=== PATIENT | female | born 1985 | race African-American/Black ===

== ENCOUNTER 2016-09-14 19:49 | Inpatient (IN) | payer MEDICAID ==
[~2016-09-14] VITALS: Ht 157.5 cm; Wt 58.2 kg
[~2016-09-14 19:49] MED LIST: ALPR0.254 PO; ASPI-621 PO; AZIT500T4 PO; CEFD300C2 PO; DOCU240C31 PO; FERR325T20 PO; HYDR-3138 PO; IBUP-1222 PO; IBUP200T5 PO; LISI5TAB7 PO; MAGN400T26 PO; METH125V IV; METO25TA35 PO; MIRT15TA4 PO; OXYC-223 PO; OXYC-302 PO; OXYC10TA32 PO; PANT40TA5 PO; PRED20TA PO; PROM25AM6 IM; maalox/diphenh/lido/sucralfate PO
[2016-09-14] MEDS ORDERED: ONDANSETRON 2MG/ML, 2ML ONE (20:25)
[2016-09-14] MEDS ORDERED: MORPHINE SULFATE 4 MG/ML, 1ML ONE (20:25)
[2016-09-14] MEDS ORDERED: MORPHINE SULFATE 4 MG/ML, 1ML IVPush PRN (20:30)
[2016-09-14] MEDS ORDERED: SODIUM CHLORIDE 0.9% 1,000ML IVBOLUS ONE (20:30)
[2016-09-14] MEDS ORDERED: SODIUM CHLORIDE FLUSH 10ML SYR IVF ONE (20:30)
[2016-09-14] MEDS ORDERED: ONDANSETRON 2MG/ML, 2ML IVPush ONE (20:30)
[2016-09-14 21:05] LABS: IS PT STATUS REG ER OR PRE ER? YES
[2016-09-14 21:53] LABS: DAU SCREEN DISCLAIMER
[2016-09-14 22:27] LABS: ICTOTEST NEGATIVE
[2016-09-14] MEDS ORDERED: METOPROLOL 1 MG/ML, 5ML IVPush ONE (23:00)
[2016-09-14] MEDS ORDERED: METOPROLOL 1 MG/ML, 5ML ONE (23:02)
[2016-09-14 23:16] LABS: IS PT STATUS REG ER OR PRE ER? YES
[2016-09-15] VITALS (16 sets, daily range): BP systolic 82–109; BP diastolic 51–76
[2016-09-15] MEDS ORDERED: SODIUM CHLORIDE FLUSH 10ML SYR IVF PRN
[2016-09-15] MEDS: ONDANSETRON 2MG/ML, 2ML IVP PRN (01:36)
[2016-09-15] MEDS: SODIUM CHLORIDE 0.9% 1,000 ML IV SCH ×2 (02:06→13:45)
[2016-09-15] MEDS: OXYcodone IR 5MG TABLET PO PRN ×2 (02:08→10:33)
[2016-09-15] MEDS: CEFTRIAXONE PMX 1GM/50ML 50 ML IV SCH (02:21)
[2016-09-15 03:18] LABS: ASPARTATE AMINO TRANSFERASE 51 U/L (15-37); BLOOD UREA NITROGEN 16 mg/dL (7-18)
[2016-09-15 03:22] LABS: HEMOGLOBIN 6.2 g/dL (11.7-16.4)
[2016-09-15 03:23] LABS: DIFF TOTAL CELLS COUNTED 100 CELL DIFF
[2016-09-15 03:24] LABS: IS PT STATUS REG ER OR PRE ER? NO
[2016-09-15 03:25] LABS: ANISOCYTOSIS 1+
[2016-09-15 03:26] LABS: POIKILOCYTOSIS 1+; POLYCHROMASIA 1+
[2016-09-15 03:27] LABS: VERIFY COUNTS? YES
[2016-09-15] MEDS ORDERED: METOPROLOL TARTRATE 25 MG TABLET PO SCH (06:00)
[2016-09-15] MEDS ORDERED: ASPIRIN 81 MG TABLET EC PO SCH (06:00)
[2016-09-15] MEDS ORDERED: POTASSIUM CHLORIDE 20 MEQ TAB.ER.PRT PO SCH (08:00)
[2016-09-15] MEDS: MORPHINE SULFATE 4 MG/ML, 1ML IVPush PRN ×3 (08:19→15:13)
[2016-09-15] MEDS ORDERED: LISINOPRIL 5 MG TABLET PO SCH (09:00)
[2016-09-15 09:01] LABS: IS PT STATUS REG ER OR PRE ER? NO
[2016-09-15] MEDS: PROMETHAZINE 25 MG/ML, 1ML IM PRN (10:33)
[2016-09-15] MEDS: PANTOPROZOLE 40MG TABLET PO SCH (14:45)
[2016-09-15] MEDS: MAGNESIUM OXIDE 400 MG TABLET PO SCH (14:47)
[2016-09-15] MEDS: ACETAMINOPHEN 325 MG TABLET PO PRN (15:14)
[2016-09-15 15:50] LABS: HEMOGLOBIN 9.4 g/dL (11.7-16.4)
[2016-09-15] MEDS ORDERED: LORazepam 2 MG/ML, 1ML IVPush ONE (16:30)
[2016-09-15] MEDS ORDERED: OMNIPAQUE 350 MG/ML, 100ML BOTTLE ONE (19:11)
[2016-09-15 21:09] LABS: HEMOGLOBIN 9.5 g/dL (11.7-16.4)
[2016-09-15 21:23] LABS: DIFF TOTAL CELLS COUNTED 100 CELL DIFF
[2016-09-15 21:25] LABS: ANISOCYTOSIS 1+; POLYCHROMASIA 1+
[2016-09-15 21:29] LABS: VERIFY COUNTS? YES
[2016-09-15] MEDS: MIRTAZAPINE 15 MG TABLET PO SCH (21:59)
[2016-09-16] VITALS (18 sets, daily range): BP systolic 106–148; BP diastolic 66–90
[2016-09-16] MEDS ORDERED: VANCOMYCIN PER PHARMACY MC PRN (02:00)
[2016-09-16] MEDS: CEFTRIAXONE PMX 1GM/50ML 50 ML IV SCH (02:24)
[2016-09-16] MEDS: SODIUM CHLORIDE 0.9% 1,000 ML IV SCH ×2 (02:24→15:30)
[2016-09-16] MEDS ORDERED: PHARMACOKINETIC CONSULTATION MC ONE (02:30)
[2016-09-16] MEDS ORDERED: PHARMACOKINETIC MONITORING MC PRN (02:30)
[2016-09-16] MEDS: VANCOMYCIN PMX 1GM/200ML 200 ML IV SCH ×2 (03:11→17:41)
[2016-09-16] MEDS: MORPHINE SULFATE 4 MG/ML, 1ML IVPush PRN ×4 (04:17→20:56)
[2016-09-16] MEDS: PROMETHAZINE 25 MG/ML, 1ML IM PRN ×3 (05:56→20:56)
[2016-09-16 06:14] LABS: ASPARTATE AMINO TRANSFERASE 50 U/L (15-37); BLOOD UREA NITROGEN 20 mg/dL (7-18)
[2016-09-16] MEDS: OXYcodone IR 5MG TABLET PO PRN ×2 (06:35→15:30)
[2016-09-16 07:50] LABS: HEMOGLOBIN 8.4 g/dL (11.7-16.4)
[2016-09-16 08:00] LABS: DIFF TOTAL CELLS COUNTED 100 CELL DIFF
[2016-09-16 08:03] LABS: ANISOCYTOSIS 1+; POLYCHROMASIA 1+; VERIFY COUNTS? YES
[2016-09-16] MEDS: MAGNESIUM OXIDE 400 MG TABLET PO SCH (10:32)
[2016-09-16] MEDS: PANTOPROZOLE 40MG TABLET PO SCH (10:32)
[2016-09-16] MEDS ORDERED: DIPHENHYDRAMINE 50 MG/ML, 1ML IVPush ONE (13:00)
[2016-09-16] MEDS: PIPERACILLIN/TAZO/PMX 3.375GM 50 ML IV SCH ×2 (14:25→22:27)
[2016-09-16] MEDS: maalox/diphenh/lido/sucralfate 5 ML PO PRN (14:25)
[2016-09-16] MEDS ORDERED: MAGNESIUM SULFATE PMX 2GM/50ML 50 ML IV ONE (14:30)
[2016-09-16] MEDS: MIRTAZAPINE 15 MG TABLET PO SCH (20:56)
[2016-09-17] VITALS (9 sets, daily range): BP systolic 128–163; BP diastolic 80–102
[2016-09-17] MEDS: OXYcodone IR 5MG TABLET PO PRN ×3 (00:19→22:48)
[2016-09-17] MEDS: maalox/diphenh/lido/sucralfate 5 ML PO PRN ×3 (01:10→11:26)
[2016-09-17] MEDS: MORPHINE SULFATE 4 MG/ML, 1ML IVPush PRN ×4 (01:39→20:14)
[2016-09-17] MEDS: PROMETHAZINE 25 MG/ML, 1ML IM PRN ×3 (03:15→20:10)
[2016-09-17] MEDS: PIPERACILLIN/TAZO/PMX 3.375GM 50 ML IV SCH ×3 (05:41→22:48)
[2016-09-17] MEDS: VANCOMYCIN PMX 1GM/200ML 200 ML IV SCH ×2 (06:32→19:59)
[2016-09-17 07:26] LABS: HEMOGLOBIN 11.6 g/dL (11.7-16.4)
[2016-09-17] MEDS: PANTOPROZOLE 40MG TABLET PO SCH (08:56)
[2016-09-17] MEDS: MAGNESIUM OXIDE 400 MG TABLET PO SCH (08:56)
[2016-09-17] MEDS: SODIUM CHLORIDE 0.9% 1,000 ML IV SCH ×2 (08:56→23:04)
[2016-09-17] MEDS: LORazepam 2 MG/ML, 1ML IVPush PRN ×2 (15:46→22:51)
[2016-09-17] MEDS: MIRTAZAPINE 15 MG TABLET PO SCH (20:18)
[2016-09-17] MEDS: ACETAMINOPHEN 325 MG TABLET PO PRN (20:35)
[2016-09-18] VITALS (7 sets, daily range): BP systolic 104–153; BP diastolic 65–99
[2016-09-18] MEDS: MORPHINE SULFATE 4 MG/ML, 1ML IVPush PRN ×2 (01:29→04:45)
[2016-09-18] MEDS: OXYcodone IR 5MG TABLET PO PRN ×5 (06:13→23:22)
[2016-09-18] MEDS: PIPERACILLIN/TAZO/PMX 3.375GM 50 ML IV SCH ×2 (06:14→14:36)
[2016-09-18 07:33] LABS: HEMOGLOBIN 11.2 g/dL (11.7-16.4)
[2016-09-18] MEDS: PANTOPROZOLE 40MG TABLET PO SCH (08:54)
[2016-09-18] MEDS: LORazepam 2 MG/ML, 1ML IVPush PRN ×3 (08:54→23:22)
[2016-09-18] MEDS: VANCOMYCIN PMX 1GM/200ML 200 ML IV SCH (08:54)
[2016-09-18] MEDS: MAGNESIUM OXIDE 400 MG TABLET PO SCH (08:54)
[2016-09-18] MEDS: PROMETHAZINE 25 MG/ML, 1ML IM PRN ×2 (08:59→17:10)
[2016-09-18] MEDS: SODIUM CHLORIDE 0.9% 1,000 ML IV SCH (09:04)
[2016-09-18] MEDS ORDERED: OXYcodone IR 5MG TABLET PO PRN (13:00)
[2016-09-18] MEDS: MIRTAZAPINE 15 MG TABLET PO SCH (21:09)
[2016-09-18] MEDS: SODIUM CHLORIDE 0.9% IV SCH (21:10)
[2016-09-18] MEDS: DAPTOMYCIN IV SCH (21:10)
[2016-09-19] VITALS (9 sets, daily range): BP systolic 125–148; BP diastolic 72–91
[2016-09-19] MEDS: OXYcodone IR 5MG TABLET PO PRN ×3 (03:26→14:10)
[2016-09-19] MEDS: SODIUM CHLORIDE 0.9% 1,000 ML IV SCH ×2 (03:29→14:10)
[2016-09-19] MEDS: PROMETHAZINE 25 MG/ML, 1ML IM PRN ×3 (04:08→17:44)
[2016-09-19 04:48] LABS: HEMOGLOBIN 9.8 g/dL (11.7-16.4)
[2016-09-19] MEDS: LORazepam 2 MG/ML, 1ML IVPush PRN ×3 (05:38→20:44)
[2016-09-19 06:22] LABS: HIV 1&2 ANTIBODY SCREEN Nonreactive (Nonreactive); HIV-1 p24 ANTIGEN Nonreactive (Nonreactive)
[2016-09-19] MEDS: PANTOPROZOLE 40MG TABLET PO SCH (08:31)
[2016-09-19] MEDS: MAGNESIUM OXIDE 400 MG TABLET PO SCH (08:31)
[2016-09-19] MEDS ORDERED: GANCICLOVIR 500 MG IV SCH (13:00)
[2016-09-19] MEDS ORDERED: GANCICLOVIR IVPB SCH (13:30)
[2016-09-19] MEDS ORDERED: SODIUM CHLORIDE 0.9% IVPB SCH (13:30)
[2016-09-19] MEDS: DAPTOMYCIN IV SCH (20:44)
[2016-09-19] MEDS: SODIUM CHLORIDE 0.9% IV SCH (20:44)
[2016-09-19] MEDS: ACETAMINOPHEN 325 MG TABLET PO PRN (20:44)
[2016-09-19] MEDS: MIRTAZAPINE 15 MG TABLET PO SCH (21:11)
[2016-09-20] VITALS (9 sets, daily range): BP systolic 111–169; BP diastolic 68–99
[2016-09-20] MEDS: OXYcodone IR 5MG TABLET PO PRN ×4 (01:19→18:54)
[2016-09-20] MEDS: SODIUM CHLORIDE 0.9% 1,000 ML IV SCH (02:25)
[2016-09-20] MEDS: GANCICLOVIR IVPB SCH ×2 (03:38→19:53)
[2016-09-20] MEDS: SODIUM CHLORIDE 0.9% IVPB SCH ×2 (03:38→19:53)
[2016-09-20] MEDS: LORazepam 2 MG/ML, 1ML IVPush PRN ×3 (04:44→18:10)
[2016-09-20 05:36] LABS: HEMOGLOBIN 9.1 g/dL (11.7-16.4)
[2016-09-20 05:42] LABS: BLOOD UREA NITROGEN 14 mg/dL (7-18)
[2016-09-20] MEDS: ACETAMINOPHEN 325 MG TABLET PO PRN (06:23)
[2016-09-20] MEDS: PROMETHAZINE 25 MG/ML, 1ML IM PRN ×3 (06:24→21:54)
[2016-09-20] MEDS: PANTOPROZOLE 40MG TABLET PO SCH (09:05)
[2016-09-20] MEDS: MAGNESIUM OXIDE 400 MG TABLET PO SCH (09:05)
[2016-09-20] MEDS ORDERED: MAGNESIUM SULFATE PMX 2GM/50ML 50 ML IV ONE (09:30)
[2016-09-20] MEDS ORDERED: POTASSIUM CHLORIDE 20 MEQ TAB.ER.PRT PO ONE ×2 (09:30→11:00)
[2016-09-20 13:06] LABS: FUNGITELL RESULT 33 pg/mL (.)
[2016-09-20 19:30] LABS: ANA SCREEN POSITIVE (Negative); ANA TITER MIXED
[2016-09-20] MEDS: MIRTAZAPINE 15 MG TABLET PO SCH (19:54)
[2016-09-20 21:05] LABS: ADENOVIRUS PCR Negative (Negative); INFLUENZA A PCR Negative (Negative); INFLUENZA B PCR Negative (Negative); METAPNEUMOVIRUS PCR Negative (Negative); PARAINFLUENZA 1 PCR Negative (Negative); PARAINFLUENZA 2 PCR Negative (Negative); PARAINFLUENZA 3 PCR Negative (Negative); RESP SYNCYTIAL VIRUS A PCR Negative (Negative); RESP SYNCYTIAL VIRUS B PCR Negative (Negative); RHINOVIRUS PCR Negative (Negative)
[2016-09-20] MEDS: SODIUM CHLORIDE 0.9% IV SCH (22:41)
[2016-09-20] MEDS: DAPTOMYCIN IV SCH (22:41)
[2016-09-21] VITALS (9 sets, daily range): BP systolic 127–159; BP diastolic 77–99
[2016-09-21] MEDS: OXYcodone IR 5MG TABLET PO PRN ×4 (03:16→19:24)
[2016-09-21] MEDS: ACETAMINOPHEN 325 MG TABLET PO PRN (03:16)
[2016-09-21] MEDS: SODIUM CHLORIDE 0.9% 1,000 ML IV SCH ×2 (03:18→21:55)
[2016-09-21] MEDS: PROMETHAZINE 25 MG/ML, 1ML IM PRN (04:00)
[2016-09-21 05:45] LABS: HEMOGLOBIN 7.9 g/dL (11.7-16.4)
[2016-09-21 05:55] LABS: BLOOD UREA NITROGEN 11 mg/dL (7-18)
[2016-09-21] MEDS: MAGNESIUM OXIDE 400 MG TABLET PO SCH (08:27)
[2016-09-21] MEDS: PANTOPROZOLE 40MG TABLET PO SCH (08:27)
[2016-09-21] MEDS ORDERED: POTASSIUM CHLORIDE 20 MEQ TAB.ER.PRT PO ONE (10:30)
[2016-09-21] MEDS ORDERED: FUROSEMIDE 20 MG/2 ML IVPush ONE (10:30)
[2016-09-21] MEDS ORDERED: DIPHENHYDRAMINE 50 MG/ML, 1ML IVPush ONE (10:30)
[2016-09-21] MEDS ORDERED: PROMETHAZINE 12.5 MG SUPP PR PRN (10:30)
[2016-09-21] MEDS: GANCICLOVIR IVPB SCH (10:54)
[2016-09-21] MEDS: SODIUM CHLORIDE 0.9% IVPB SCH (10:54)
[2016-09-21 12:06] LABS: ANA DIRECT Positive (Negative); COMPLEMENT C3 33 mg/dL (82-167); COMPLEMENT C4 6 mg/dL (14-44); INTERMYOFIBRILLAR AB Negative (Neg:<1:20); PARIETAL CELL AB 18.4 Units (0.0-20.0); SARCOLEMMA AB Negative (Neg:<1:20); SJOGREN'S SS-A AB 4.6 AI (0.0-0.9); STRIATION AB Negative (Neg:<1:40); THYROID PEROXIDASE (TPO) AB 32 IU/mL (0-34)
[2016-09-21] MEDS: LORazepam 2 MG/ML, 1ML IVPush PRN ×2 (13:10→20:22)
[2016-09-21] MEDS ORDERED: FUROSEMIDE 20 MG/2 ML ONE (14:50)
[2016-09-21] MEDS ORDERED: POTASSIUM CHLORIDE 20 MEQ TAB.ER.PRT ONE (14:52)
[2016-09-21] MEDS: ONDANSETRON 2MG/ML, 2ML IVP PRN ×2 (20:22→22:49)
[2016-09-21] MEDS: MIRTAZAPINE 15 MG TABLET PO SCH (21:55)
[2016-09-21] MEDS: SODIUM CHLORIDE 0.9% IV SCH (22:48)
[2016-09-21] MEDS: DAPTOMYCIN IV SCH (22:48)
[2016-09-21] MEDS: MORPHINE SULFATE 4 MG/ML, 1ML IVPush PRN (22:49)
[2016-09-22] VITALS (7 sets, daily range): BP systolic 122–159; BP diastolic 76–90
[2016-09-22] MEDS: GANCICLOVIR IVPB SCH ×3 (01:14→23:30)
[2016-09-22] MEDS: SODIUM CHLORIDE 0.9% IVPB SCH ×3 (01:14→23:30)
[2016-09-22 06:06] LABS: HEMOGLOBIN 10.6 g/dL (11.7-16.4)
[2016-09-22 06:50] LABS: DIFF TOTAL CELLS COUNTED 100 CELL DIFF
[2016-09-22 07:34] LABS: VERIFY COUNTS? YES
[2016-09-22 07:35] LABS: ANISOCYTOSIS 1+
[2016-09-22] MEDS: SODIUM CHLORIDE 0.9% 1,000 ML IV SCH ×2 (09:53→23:30)
[2016-09-22] MEDS: MORPHINE SULFATE 4 MG/ML, 1ML IVPush PRN ×2 (09:53→16:39)
[2016-09-22] MEDS: PANTOPROZOLE 40MG TABLET PO SCH (09:53)
[2016-09-22] MEDS: MAGNESIUM OXIDE 400 MG TABLET PO SCH (09:53)
[2016-09-22 11:06] LABS: ABSOLUTE CD 4 HELPER 579 /uL (359-1519); HEMATOCRIT 26.9 % (34.0-46.6); IMMATURE GRANULOCYTES 0 % (.); MCH 28.7 pg (26.6-33.0); MCHC 33.5 g/dL (31.5-35.7); MCV 86 fL (79-97); MONOCYTES 5 % (.); NEUTROPHILS 72 % (.); PLATELETS 33 x10E3/uL (150-379); RBC 3.14 x10E6/uL (3.77-5.28); RDW 16.5 % (12.3-15.4); WBC 6.4 x10E3/uL (3.4-10.8)
[2016-09-22] MEDS: ACETAMINOPHEN 325 MG TABLET PO PRN (11:31)
[2016-09-22] MEDS: OXYcodone IR 5MG TABLET PO PRN ×2 (11:36→20:00)
[2016-09-22] MEDS: LORazepam 2 MG/ML, 1ML IVPush PRN (17:30)
[2016-09-22] MEDS: ONDANSETRON ODT 4 MG PO PRN (20:00)
[2016-09-22] MEDS: MIRTAZAPINE 15 MG TABLET PO SCH (20:00)
[2016-09-22] MEDS: CEFTAROLINE 600 MG in SODIUM CHLORIDE 0.9% 100 ML IV SCH (21:47)
[2016-09-23 02:05] VITALS: BP 162/95
[2016-09-23] MEDS: MORPHINE SULFATE 4 MG/ML, 1ML IVPush PRN ×3 (02:22→13:30)
[2016-09-23] MEDS: CEFTAROLINE 600 MG in SODIUM CHLORIDE 0.9% 100 ML IV SCH ×3 (04:02→20:14)
[2016-09-23] MEDS: ONDANSETRON ODT 4 MG PO PRN ×2 (04:11→08:16)
[2016-09-23 05:51] LABS: HEMOGLOBIN 10.8 g/dL (11.7-16.4)
[2016-09-23] MEDS: OXYcodone IR 5MG TABLET PO PRN ×3 (06:16→20:15)
[2016-09-23 06:34] VITALS: BP 152/91
[2016-09-23] MEDS: MAGNESIUM OXIDE 400 MG TABLET PO SCH (08:16)
[2016-09-23] MEDS: PANTOPROZOLE 40MG TABLET PO SCH (08:16)
[2016-09-23] MEDS: SODIUM CHLORIDE 0.9% IVPB SCH ×2 (12:04→23:39)
[2016-09-23] MEDS: GANCICLOVIR IVPB SCH ×2 (12:04→23:39)
[2016-09-23] MEDS: SODIUM CHLORIDE 0.9% 1,000 ML IV SCH (12:09)
[2016-09-23] MEDS: LORazepam 2 MG/ML, 1ML IVPush PRN ×2 (12:14→22:30)
[2016-09-23 12:54] VITALS: BP 156/94
[2016-09-23] MEDS: ONDANSETRON 2MG/ML, 2ML IVP PRN ×2 (16:33→20:15)
[2016-09-23] MEDS: MIRTAZAPINE 15 MG TABLET PO SCH (20:14)
[2016-09-23 20:25] VITALS: BP 152/88
[2016-09-24] MEDS: SODIUM CHLORIDE 0.9% 1,000 ML IV SCH ×2 (01:08→15:00)
[2016-09-24 02:00] VITALS: BP 150/91
[2016-09-24] MEDS: CEFTAROLINE 600 MG in SODIUM CHLORIDE 0.9% 100 ML IV SCH ×3 (03:56→22:11)
[2016-09-24] MEDS: OXYcodone IR 5MG TABLET PO PRN ×4 (03:58→22:11)
[2016-09-24] MEDS: LORazepam 2 MG/ML, 1ML IVPush PRN ×3 (04:35→22:11)
[2016-09-24 05:14] LABS: HEMOGLOBIN 10.2 g/dL (11.7-16.4)
[2016-09-24 05:39] LABS: ASPARTATE AMINO TRANSFERASE 25 U/L (15-37); BLOOD UREA NITROGEN 10 mg/dL (7-18)
[2016-09-24] MEDS ORDERED: DOCUSATE 50 MG/5 ML ORAL SOL OT PRN (07:30)
[2016-09-24 07:58] VITALS: BP 156/94
[2016-09-24] MEDS: ONDANSETRON 2MG/ML, 2ML IVP PRN ×2 (08:13→15:37)
[2016-09-24] MEDS ORDERED: POTASSIUM CHLORIDE 20 MEQ TAB.ER.PRT PO ONE (10:00)
[2016-09-24] MEDS ORDERED: MAGNESIUM SULFATE PMX 2GM/50ML 50 ML IV ONE (10:00)
[2016-09-24] MEDS: MAGNESIUM OXIDE 400 MG TABLET PO SCH (11:02)
[2016-09-24] MEDS: CLINDAMYCIN PMX 900MG/50ML 50 ML IV SCH ×2 (11:02→20:18)
[2016-09-24] MEDS: PANTOPROZOLE 40MG TABLET PO SCH (11:03)
[2016-09-24] MEDS: SODIUM CHLORIDE 0.9% IVPB SCH (14:46)
[2016-09-24] MEDS: GANCICLOVIR IVPB SCH (14:46)
[2016-09-24 15:19] VITALS: BP 161/96
[2016-09-24 17:42] VITALS: BP 151/86
[2016-09-24 17:57] VITALS: BP 147/86
[2016-09-24 20:00] VITALS: BP 148/88
[2016-09-24] MEDS: MIRTAZAPINE 15 MG TABLET PO SCH (22:11)
[2016-09-25 02:30] VITALS: BP 137/90
[2016-09-25] MEDS: GANCICLOVIR IVPB SCH (03:31)
[2016-09-25] MEDS: SODIUM CHLORIDE 0.9% IVPB SCH (03:31)
[2016-09-25 03:57] LABS: BLOOD UREA NITROGEN 9 mg/dL (7-18)
[2016-09-25] MEDS: CLINDAMYCIN PMX 900MG/50ML 50 ML IV SCH ×3 (04:23→19:37)
[2016-09-25] MEDS: LORazepam 2 MG/ML, 1ML IVPush PRN ×2 (04:23→13:22)
[2016-09-25] MEDS: OXYcodone IR 5MG TABLET PO PRN ×3 (04:23→19:42)
[2016-09-25] MEDS: CEFTAROLINE 600 MG in SODIUM CHLORIDE 0.9% 100 ML IV SCH ×2 (06:13→16:53)
[2016-09-25 07:56] VITALS: BP 150/89
[2016-09-25] MEDS: ONDANSETRON 2MG/ML, 2ML IVP PRN ×3 (08:43→21:46)
[2016-09-25] MEDS: PANTOPROZOLE 40MG TABLET PO SCH (08:46)
[2016-09-25] MEDS: MAGNESIUM OXIDE 400 MG TABLET PO SCH (08:46)
[2016-09-25] MEDS ORDERED: POTASSIUM CHLORIDE 20 MEQ TAB.ER.PRT PO ONE (11:00)
[2016-09-25] MEDS ORDERED: POTASSIUM CHLORIDE 20 MEQ in SODIUM CHLORIDE 0.9% 250 ML IV ONE (11:30)
[2016-09-25] MEDS ORDERED: POTASSIUM CHLORIDE PMX 100 ML IV ONE (11:30)
[2016-09-25 13:54] LABS: HEMOGLOBIN 9.8 g/dL (11.7-16.4)
[2016-09-25 13:55] VITALS: BP 145/85
[2016-09-25 14:06] LABS: CMV QUANT DNA PCR BLOOD Negative (Negative)
[2016-09-25] MEDS: MORPHINE SULFATE 4 MG/ML, 1ML IVPush PRN ×2 (15:12→21:46)
[2016-09-25] MEDS: MIRTAZAPINE 15 MG TABLET PO SCH (19:37)
[2016-09-25] MEDS: SODIUM CHLORIDE 0.9% 1,000 ML IV SCH ×2 (19:38→20:50)
[2016-09-25 19:42] VITALS: BP 155/93
[2016-09-26] MEDS: CEFTAROLINE 600 MG in SODIUM CHLORIDE 0.9% 100 ML IV SCH ×3 (01:09→17:57)
[2016-09-26 03:41] VITALS: BP 147/85
[2016-09-26] MEDS: CLINDAMYCIN PMX 900MG/50ML 50 ML IV SCH ×2 (03:41→11:30)
[2016-09-26] MEDS: OXYcodone IR 5MG TABLET PO PRN ×3 (03:54→18:14)
[2016-09-26 04:37] LABS: BLOOD UREA NITROGEN 10 mg/dL (7-18)
[2016-09-26 04:51] LABS: HEMOGLOBIN 9.8 g/dL (11.7-16.4)
[2016-09-26 08:20] VITALS: BP 149/88
[2016-09-26] MEDS: PANTOPROZOLE 40MG TABLET PO SCH (08:25)
[2016-09-26] MEDS: MAGNESIUM OXIDE 400 MG TABLET PO SCH (09:47)
[2016-09-26] MEDS: SODIUM CHLORIDE 0.9% 1,000 ML IV SCH (10:10)
[2016-09-26] MEDS: ONDANSETRON ODT 4 MG PO PRN (11:20)
[2016-09-26] MEDS: MORPHINE SULFATE 4 MG/ML, 1ML IVPush PRN ×2 (11:21→15:55)
[2016-09-26] MEDS: SERTRALINE 50MG TABLET PO SCH (13:29)
[2016-09-26 15:18] VITALS: BP 153/89
[2016-09-26] MEDS: LORazepam 2 MG/ML, 1ML IVPush PRN ×2 (15:47→22:08)
[2016-09-26] MEDS: ONDANSETRON 2MG/ML, 2ML IVP PRN (17:51)
[2016-09-26 20:45] VITALS: BP 155/81
[2016-09-26] MEDS: POTASSIUM CHLORIDE 40 MEQ in SODIUM CHLORIDE 0.9% 1,000 ML IV SCH (22:54)
[2016-09-26] MEDS: MIRTAZAPINE 15 MG TABLET PO SCH (22:54)
[2016-09-27] MEDS: CEFTAROLINE 600 MG in SODIUM CHLORIDE 0.9% 100 ML IV SCH ×3 (01:57→17:39)
[2016-09-27] MEDS: ONDANSETRON 2MG/ML, 2ML IVP PRN ×4 (03:00→20:03)
[2016-09-27] MEDS: MORPHINE SULFATE 4 MG/ML, 1ML IVPush PRN ×5 (03:00→21:55)
[2016-09-27] MEDS: LORazepam 2 MG/ML, 1ML IVPush PRN ×3 (05:19→17:39)
[2016-09-27 06:00] LABS: BLOOD UREA NITROGEN 9 mg/dL (7-18)
[2016-09-27 06:34] LABS: HEMOGLOBIN 9.7 g/dL (11.7-16.4)
[2016-09-27] MEDS: OXYcodone IR 5MG TABLET PO PRN ×3 (06:50→20:03)
[2016-09-27 08:10] VITALS: BP 143/86
[2016-09-27] MEDS: SERTRALINE 50MG TABLET PO SCH (09:15)
[2016-09-27] MEDS: PANTOPROZOLE 40MG TABLET PO SCH (09:15)
[2016-09-27] MEDS: MAGNESIUM OXIDE 400 MG TABLET PO SCH (09:15)
[2016-09-27 12:06] LABS: BETA-2 GLYCOPROTEIN I IGA <9 (0-25)
[2016-09-27 14:00] VITALS: BP 148/87
[2016-09-27] MEDS: POTASSIUM CHLORIDE 40 MEQ in SODIUM CHLORIDE 0.9% 1,000 ML IV SCH (15:41)
[2016-09-27] MEDS: MIRTAZAPINE 15 MG TABLET PO SCH (20:03)
[2016-09-27 20:30] VITALS: BP 162/88
[2016-09-28] MEDS: CEFTAROLINE 600 MG in SODIUM CHLORIDE 0.9% 100 ML IV SCH ×4 (01:00→23:53)
[2016-09-28] MEDS: LORazepam 2 MG/ML, 1ML IVPush PRN ×3 (01:04→21:03)
[2016-09-28] MEDS: OXYcodone IR 5MG TABLET PO PRN ×2 (03:39→17:13)
[2016-09-28 05:35] VITALS: BP 152/87
[2016-09-28] MEDS: MORPHINE SULFATE 4 MG/ML, 1ML IVPush PRN ×5 (06:19→23:53)
[2016-09-28] MEDS: POTASSIUM CHLORIDE 40 MEQ in SODIUM CHLORIDE 0.9% 1,000 ML IV SCH (06:19)
[2016-09-28 06:28] LABS: HEMOGLOBIN 10.1 g/dL (11.7-16.4)
[2016-09-28 06:34] LABS: BLOOD UREA NITROGEN 10 mg/dL (7-18)
[2016-09-28 08:07] VITALS: BP 146/95
[2016-09-28 08:07] LABS: DILUTE PROTHROMBIN TIME (DPT) 46.1 sec (0.0-55.0); DILUTE RUSSELL'S VIPER VENOM 44.8 sec (0.0-44.0); LUPUS REFLEX INTERPRETATION Comment: (.); PTT-LA 34.9 sec (0.0-40.6)
[2016-09-28] MEDS: PANTOPROZOLE 40MG TABLET PO SCH (11:23)
[2016-09-28] MEDS: SERTRALINE 50MG TABLET PO SCH (11:23)
[2016-09-28] MEDS: MAGNESIUM OXIDE 400 MG TABLET PO SCH (11:23)
[2016-09-28] MEDS: ONDANSETRON ODT 4 MG PO PRN (11:47)
[2016-09-28] MEDS: ACETAMINOPHEN 325 MG TABLET PO PRN (14:27)
[2016-09-28 14:57] VITALS: BP 144/93
[2016-09-28] MEDS: ONDANSETRON 2MG/ML, 2ML IVP PRN (20:20)
[2016-09-28] MEDS: MIRTAZAPINE 15 MG TABLET PO SCH (20:57)
[2016-09-28] MEDS: POTASSIUM CHLORIDE 10 MEQ in SODIUM CHLORIDE 0.9% 1,000 ML IV SCH (22:16)
[2016-09-29] VITALS (9 sets, daily range): BP systolic 130–138; BP diastolic 82–88
[2016-09-29] MEDS: OXYcodone IR 5MG TABLET PO PRN ×2 (00:35→10:32)
[2016-09-29] MEDS: ONDANSETRON ODT 4 MG PO PRN (01:08)
[2016-09-29] MEDS: LORazepam 2 MG/ML, 1ML IVPush PRN ×4 (03:12→21:22)
[2016-09-29] MEDS: MORPHINE SULFATE 4 MG/ML, 1ML IVPush PRN ×5 (06:28→19:27)
[2016-09-29] MEDS: ONDANSETRON 2MG/ML, 2ML IVP PRN ×3 (06:42→21:22)
[2016-09-29 08:45] LABS: BLOOD UREA NITROGEN 8 mg/dL (7-18)
[2016-09-29] MEDS: MAGNESIUM OXIDE 400 MG TABLET PO SCH (09:13)
[2016-09-29] MEDS: SERTRALINE 50MG TABLET PO SCH (09:13)
[2016-09-29] MEDS: PANTOPROZOLE 40MG TABLET PO SCH (09:13)
[2016-09-29] MEDS: CEFTAROLINE 600 MG in SODIUM CHLORIDE 0.9% 100 ML IV SCH ×2 (09:13→16:15)
[2016-09-29 09:23] LABS: HEMOGLOBIN 9.3 g/dL (11.7-16.4)
[2016-09-29 09:27] LABS: DIFF TOTAL CELLS COUNTED 100 CELL DIFF
[2016-09-29 09:31] LABS: ANISOCYTOSIS 1+; VERIFY COUNTS? YES
[2016-09-29] MEDS: ACETAMINOPHEN 325 MG TABLET PO PRN ×2 (14:52→21:48)
[2016-09-29] MEDS: POTASSIUM CHLORIDE 10 MEQ in SODIUM CHLORIDE 0.9% 1,000 ML IV SCH (14:53)
[2016-09-29] MEDS: MIRTAZAPINE 15 MG TABLET PO SCH (21:22)
[2016-09-30] MEDS: CEFTAROLINE 600 MG in SODIUM CHLORIDE 0.9% 100 ML IV SCH ×3 (00:59→18:11)
[2016-09-30] MEDS: MORPHINE SULFATE 4 MG/ML, 1ML IVPush PRN ×4 (03:34→15:41)
[2016-09-30] MEDS: POTASSIUM CHLORIDE 10 MEQ in SODIUM CHLORIDE 0.9% 1,000 ML IV SCH ×2 (05:15→18:12)
[2016-09-30 05:20] VITALS: BP 140/80
[2016-09-30 07:11] VITALS: BP 148/85
[2016-09-30] MEDS: PANTOPROZOLE 40MG TABLET PO SCH (07:30)
[2016-09-30] MEDS: LORazepam 2 MG/ML, 1ML IVPush PRN (07:34)
[2016-09-30] MEDS: ONDANSETRON 2MG/ML, 2ML IVP PRN ×2 (07:34→13:41)
[2016-09-30 08:11] LABS: BLOOD UREA NITROGEN 10 mg/dL (7-18)
[2016-09-30 08:44] LABS: HEMOGLOBIN 9.3 g/dL (11.7-16.4)
[2016-09-30 08:52] LABS: DIFF TOTAL CELLS COUNTED 100 CELL DIFF
[2016-09-30 08:59] LABS: ANISOCYTOSIS 1+; VERIFY COUNTS? YES
[2016-09-30] MEDS: MAGNESIUM OXIDE 400 MG TABLET PO SCH (09:45)
[2016-09-30] MEDS: SERTRALINE 50MG TABLET PO SCH (09:45)
[2016-09-30] MEDS: OXYcodone IR 5MG TABLET PO PRN ×4 (10:06→22:45)
[2016-09-30] MEDS ORDERED: MORPHINE SULFATE 4 MG/ML, 1ML IVPush PRN (13:30)
[2016-09-30] MEDS: LORazepam 0.5MG TABLET PO PRN ×2 (13:41→21:20)
[2016-09-30 14:57] VITALS: BP 137/88
[2016-09-30] MEDS: MIRTAZAPINE 15 MG TABLET PO SCH (21:20)
[2016-09-30 21:21] VITALS: BP 135/82
[2016-10-01] MEDS: CEFTAROLINE 600 MG in SODIUM CHLORIDE 0.9% 100 ML IV SCH ×3 (01:32→16:45)
[2016-10-01 02:00] VITALS: BP 137/86
[2016-10-01] MEDS ORDERED: LORazepam 1MG TABLET ONE (03:17)
[2016-10-01] MEDS: OXYcodone IR 5MG TABLET PO PRN ×3 (03:43→19:56)
[2016-10-01] MEDS: LORazepam 0.5MG TABLET PO PRN ×2 (03:43→16:45)
[2016-10-01 03:48] LABS: HEMOGLOBIN 9.7 g/dL (11.7-16.4)
[2016-10-01 03:55] LABS: BLOOD UREA NITROGEN 16 mg/dL (7-18)
[2016-10-01 08:04] VITALS: BP 141/90
[2016-10-01] MEDS: MAGNESIUM OXIDE 400 MG TABLET PO SCH (09:15)
[2016-10-01] MEDS: PANTOPROZOLE 40MG TABLET PO SCH (09:15)
[2016-10-01] MEDS: SERTRALINE 50MG TABLET PO SCH (09:16)
[2016-10-01] MEDS: SODIUM CHLORIDE 0.9% 1,000 ML IV SCH (10:29)
[2016-10-01] MEDS: MORPHINE SULFATE 4 MG/ML, 1ML IVPush PRN ×2 (10:48→11:38)
[2016-10-01 14:21] VITALS: BP 150/95
[2016-10-01] MEDS: MORPHINE SULFATE 4 MG/ML, 1ML IV PRN (18:11)
[2016-10-01 19:30] VITALS: BP 148/88
[2016-10-01] MEDS: MIRTAZAPINE 15 MG TABLET PO SCH (19:56)
[2016-10-01] MEDS ORDERED: MORPHINE SULFATE 4 MG/ML, 1ML IVPush PRN (21:30)
[2016-10-02] MEDS ORDERED: LORazepam 1MG TABLET ONE (01:10)
[2016-10-02] MEDS: SODIUM CHLORIDE 0.9% 1,000 ML IV SCH (01:18)
[2016-10-02] MEDS: CEFTAROLINE 600 MG in SODIUM CHLORIDE 0.9% 100 ML IV SCH ×3 (01:19→17:39)
[2016-10-02] MEDS: OXYcodone IR 5MG TABLET PO PRN ×3 (01:19→16:46)
[2016-10-02] MEDS: LORazepam 0.5MG TABLET PO PRN ×3 (01:19→17:39)
[2016-10-02 02:00] VITALS: BP 153/90
[2016-10-02 05:48] LABS: HEMOGLOBIN 9.1 g/dL (11.7-16.4)
[2016-10-02 06:00] LABS: BLOOD UREA NITROGEN 21 mg/dL (7-18)
[2016-10-02 06:21] LABS: DIFF TOTAL CELLS COUNTED 100 CELL DIFF
[2016-10-02 06:25] LABS: ANISOCYTOSIS 1+; SPHEROCYTES 1+; VERIFY COUNTS? YES
[2016-10-02 06:26] LABS: OVALOCYTES 1+
[2016-10-02 07:45] VITALS: BP 149/90
[2016-10-02] MEDS: PANTOPROZOLE 40MG TABLET PO SCH (08:23)
[2016-10-02] MEDS: MORPHINE SULFATE 4 MG/ML, 1ML IV PRN (08:23)
[2016-10-02] MEDS: MAGNESIUM OXIDE 400 MG TABLET PO SCH (08:23)
[2016-10-02] MEDS: SERTRALINE 50MG TABLET PO SCH (08:24)
[2016-10-02] MEDS: METOPROLOL TARTRATE 25 MG TABLET PO SCH ×2 (08:33→18:15)
[2016-10-02 15:41] VITALS: BP 141/85
[2016-10-02 19:10] VITALS: BP 143/81
[2016-10-02] MEDS ORDERED: OXYcodone IR 5MG TABLET PO PRN (20:30)
[2016-10-02] MEDS: MIRTAZAPINE 15 MG TABLET PO SCH (22:12)
[2016-10-03] MEDS: CEFTAROLINE 600 MG in SODIUM CHLORIDE 0.9% 100 ML IV SCH ×3 (01:12→16:51)
[2016-10-03 01:13] VITALS: BP 150/91
[2016-10-03] MEDS: OXYcodone IR 5MG TABLET PO PRN ×3 (01:58→19:45)
[2016-10-03] MEDS: MORPHINE SULFATE 4 MG/ML, 1ML IV PRN ×2 (04:26→17:08)
[2016-10-03 06:01] VITALS: BP 145/91
[2016-10-03] MEDS: METOPROLOL TARTRATE 25 MG TABLET PO SCH ×2 (06:02→19:03)
[2016-10-03 06:48] LABS: BLOOD UREA NITROGEN 27 mg/dL (7-18)
[2016-10-03 07:09] LABS: DIFF TOTAL CELLS COUNTED 100 CELL DIFF
[2016-10-03 07:11] LABS: ANISOCYTOSIS 1+; VERIFY COUNTS? YES
[2016-10-03 07:12] LABS: POLYCHROMASIA 1+
[2016-10-03 07:13] LABS: LARGE PLATELETS 1+
[2016-10-03 09:25] VITALS: BP 152/88
[2016-10-03] MEDS: MAGNESIUM OXIDE 400 MG TABLET PO SCH (09:29)
[2016-10-03] MEDS: SERTRALINE 50MG TABLET PO SCH (09:29)
[2016-10-03] MEDS: PANTOPROZOLE 40MG TABLET PO SCH (09:29)
[2016-10-03] MEDS: SODIUM CHLORIDE 0.9% 1,000 ML IV SCH (11:41)
[2016-10-03] MEDS: LORazepam 0.5MG TABLET PO PRN ×2 (14:18→23:53)
[2016-10-03 16:57] VITALS: BP 145/87
[2016-10-03 19:58] VITALS: BP 155/89
[2016-10-03] MEDS: ONDANSETRON 2MG/ML, 2ML IVP PRN (21:07)
[2016-10-03] MEDS: MIRTAZAPINE 15 MG TABLET PO SCH (21:07)
[2016-10-04] MEDS: CEFTAROLINE 600 MG in SODIUM CHLORIDE 0.9% 100 ML IV SCH ×2 (00:51→09:05)
[2016-10-04 01:13] VITALS: BP 171/93
[2016-10-04] MEDS: OXYcodone IR 5MG TABLET PO PRN ×3 (01:25→19:28)
[2016-10-04] MEDS: SODIUM CHLORIDE 0.9% 1,000 ML IV SCH ×2 (02:21→21:34)
[2016-10-04 03:00] VITALS: BP 159/98
[2016-10-04 05:26] LABS: HEMOGLOBIN 8.7 g/dL (11.7-16.4)
[2016-10-04 05:31] LABS: BLOOD UREA NITROGEN 30 mg/dL (7-18)
[2016-10-04 05:36] LABS: ASPARTATE AMINO TRANSFERASE 94 U/L (15-37)
[2016-10-04 06:01] LABS: DIFF TOTAL CELLS COUNTED 100 CELL DIFF
[2016-10-04 06:17] LABS: ANISOCYTOSIS 1+; VERIFY COUNTS? YES
[2016-10-04 06:18] LABS: OVALOCYTES 1+; POLYCHROMASIA 1+
[2016-10-04] MEDS: METOPROLOL TARTRATE 25 MG TABLET PO SCH ×3 (06:35→19:28)
[2016-10-04] MEDS: MORPHINE SULFATE 4 MG/ML, 1ML IV PRN (06:36)
[2016-10-04] MEDS: PANTOPROZOLE 40MG TABLET PO SCH (08:01)
[2016-10-04] MEDS: MAGNESIUM OXIDE 400 MG TABLET PO SCH (08:02)
[2016-10-04] MEDS: SERTRALINE 50MG TABLET PO SCH (08:02)
[2016-10-04 08:06] VITALS: BP 155/92
[2016-10-04] MEDS ORDERED: LISINOPRIL 5 MG TABLET PO SCH (09:00)
[2016-10-04 13:03] VITALS: BP 169/101
[2016-10-04] MEDS: ONDANSETRON 2MG/ML, 2ML IVP PRN (15:04)
[2016-10-04] MEDS: LORazepam 0.5MG TABLET PO PRN (15:09)
[2016-10-04 16:07] LABS: COCCIDIO IMMUNODIFFUSION (ID) Negative (.)
[2016-10-04] MEDS ORDERED: SODIUM CHLORIDE 0.9% IV SCH (16:30)
[2016-10-04] MEDS ORDERED: DAPTOMYCIN IV SCH (16:30)
[2016-10-04] MEDS: METOCLOPRAMIDE 10MG TABLET PO SCH ×2 (17:24→19:29)
[2016-10-04 18:28] VITALS: BP 151/97
[2016-10-04] MEDS: MIRTAZAPINE 15 MG TABLET PO SCH (21:34)
[2016-10-05 03:59] VITALS: BP 142/84
[2016-10-05] MEDS: OXYcodone IR 5MG TABLET PO PRN ×3 (04:25→20:32)
[2016-10-05 04:47] LABS: HEMOGLOBIN 8.4 g/dL (11.7-16.4)
[2016-10-05 04:53] LABS: BLOOD UREA NITROGEN 26 mg/dL (7-18)
[2016-10-05] MEDS: METOCLOPRAMIDE 10MG TABLET PO SCH ×4 (05:32→20:32)
[2016-10-05] MEDS: METOPROLOL TARTRATE 25 MG TABLET PO SCH ×2 (05:32→17:27)
[2016-10-05 05:46] LABS: DIFF TOTAL CELLS COUNTED 100 CELL DIFF
[2016-10-05 05:49] LABS: ANISOCYTOSIS 1+; VERIFY COUNTS? YES
[2016-10-05 05:50] LABS: POLYCHROMASIA 1+
[2016-10-05] MEDS: MAGNESIUM OXIDE 400 MG TABLET PO SCH (07:38)
[2016-10-05] MEDS: PANTOPROZOLE 40MG TABLET PO SCH (07:38)
[2016-10-05] MEDS: SERTRALINE 50MG TABLET PO SCH (07:39)
[2016-10-05 08:20] VITALS: BP 149/84
[2016-10-05] MEDS: ONDANSETRON 2MG/ML, 2ML IVP PRN ×2 (08:34→15:14)
[2016-10-05] MEDS ORDERED: LISINOPRIL 10 MG TABLET PO SCH (09:00)
[2016-10-05] MEDS: NYSTATIN 500,000 UNITS/5 ML UDC PO SCH ×3 (11:21→20:32)
[2016-10-05 13:50] VITALS: BP 138/82
[2016-10-05] MEDS: maalox/diphenh/lido/sucralfate 5 ML PO PRN (14:20)
[2016-10-05] MEDS: LORazepam 0.5MG TABLET PO PRN (15:57)
[2016-10-05] MEDS: SODIUM CHLORIDE 0.9% 1,000 ML IV SCH (18:16)
[2016-10-05 18:55] VITALS: BP 125/77
[2016-10-05] MEDS: MIRTAZAPINE 15 MG TABLET PO SCH (20:32)
[2016-10-05] MEDS: DAPTOMYCIN IV SCH (20:33)
[2016-10-05] MEDS: SODIUM CHLORIDE 0.9% IV SCH (20:33)
[2016-10-05] MEDS: LISINOPRIL 10 MG TABLET PO SCH (20:33)
[2016-10-06] MEDS: LORazepam 0.5MG TABLET PO PRN ×2 (01:17→20:19)
[2016-10-06 02:00] VITALS: BP 121/67
[2016-10-06 03:33] LABS: HEMOGLOBIN 7.8 g/dL (11.7-16.4)
[2016-10-06 03:36] LABS: BLOOD UREA NITROGEN 24 mg/dL (7-18)
[2016-10-06 04:12] LABS: DIFF TOTAL CELLS COUNTED 100 CELL DIFF
[2016-10-06 04:17] LABS: ANISOCYTOSIS 1+; VERIFY COUNTS? YES
[2016-10-06 04:18] LABS: POLYCHROMASIA 1+
[2016-10-06] MEDS: POTASSIUM CHLORIDE 20 MEQ TAB.ER.PRT PO SCH ×2 (05:20→10:03)
[2016-10-06] MEDS: OXYcodone IR 5MG TABLET PO PRN ×2 (05:20→11:27)
[2016-10-06] MEDS: METOPROLOL TARTRATE 25 MG TABLET PO SCH ×2 (05:23→18:06)
[2016-10-06 05:25] VITALS: BP 143/87
[2016-10-06] MEDS: NYSTATIN 500,000 UNITS/5 ML UDC PO SCH ×4 (05:36→20:18)
[2016-10-06] MEDS: METOCLOPRAMIDE 10MG TABLET PO SCH ×6 (07:00→19:49)
[2016-10-06] MEDS ORDERED: BISACODYL 5 MG EC TABLET PO PRN (10:00)
[2016-10-06] MEDS: DOCUSATE 100 MG CAPSULE PO SCH ×2 (10:00→19:46)
[2016-10-06] MEDS: PANTOPROZOLE 40MG TABLET PO SCH (10:04)
[2016-10-06] MEDS: MAGNESIUM OXIDE 400 MG TABLET PO SCH (10:04)
[2016-10-06] MEDS: SERTRALINE 50MG TABLET PO SCH (10:05)
[2016-10-06] MEDS: LISINOPRIL 10 MG TABLET PO SCH ×2 (10:05→20:19)
[2016-10-06 10:09] VITALS: BP 177/88
[2016-10-06] MEDS: ONDANSETRON 2MG/ML, 2ML IVP PRN (10:31)
[2016-10-06] MEDS: ACETAMINOPHEN 325 MG TABLET PO PRN (11:27)
[2016-10-06] MEDS ORDERED: POTASSIUM CHLORIDE 40 MEQ in SODIUM CHLORIDE 0.9% 100 ML IV ONE (12:30)
[2016-10-06 12:58] VITALS: BP 165/100
[2016-10-06] MEDS: maalox/diphenh/lido/sucralfate 5 ML PO PRN (15:10)
[2016-10-06] MEDS: SODIUM CHLORIDE 0.9% 1,000 ML IV SCH (18:07)
[2016-10-06 19:25] VITALS: BP 123/78
[2016-10-06] MEDS: MIRTAZAPINE 15 MG TABLET PO SCH (20:19)
[2016-10-06] MEDS: DAPTOMYCIN IV SCH (20:51)
[2016-10-06] MEDS: SODIUM CHLORIDE 0.9% IV SCH (20:51)
[2016-10-07] MEDS: OXYcodone IR 5MG TABLET PO PRN ×2 (00:51→08:34)
[2016-10-07] MEDS: LORazepam 0.5MG TABLET PO PRN ×2 (04:31→19:41)
[2016-10-07 04:35] LABS: HEMOGLOBIN 7.7 g/dL (11.7-16.4)
[2016-10-07 04:38] LABS: BLOOD UREA NITROGEN 26 mg/dL (7-18)
[2016-10-07 04:58] LABS: DIFF TOTAL CELLS COUNTED 100 CELL DIFF
[2016-10-07 05:03] LABS: ANISOCYTOSIS 1+; HYPOCHROMIA 1+; POLYCHROMASIA 1+; VERIFY COUNTS? YES
[2016-10-07] MEDS: NYSTATIN 500,000 UNITS/5 ML UDC PO SCH ×4 (05:43→20:01)
[2016-10-07 06:03] VITALS: BP 173/99
[2016-10-07] MEDS: METOPROLOL TARTRATE 25 MG TABLET PO SCH ×2 (06:04→18:04)
[2016-10-07 07:50] VITALS: BP 152/89
[2016-10-07] MEDS: METOCLOPRAMIDE 10MG TABLET PO SCH ×4 (08:35→19:42)
[2016-10-07] MEDS: PANTOPROZOLE 40MG TABLET PO SCH (08:36)
[2016-10-07 08:37] VITALS: BP 159/93
[2016-10-07] MEDS: DOCUSATE 100 MG CAPSULE PO SCH ×2 (08:37→20:01)
[2016-10-07] MEDS: LISINOPRIL 10 MG TABLET PO SCH (08:37)
[2016-10-07] MEDS: MAGNESIUM OXIDE 400 MG TABLET PO SCH (08:37)
[2016-10-07] MEDS: SERTRALINE 50MG TABLET PO SCH (08:38)
[2016-10-07 13:36] VITALS: BP 162/94
[2016-10-07] MEDS: ONDANSETRON 2MG/ML, 2ML IVP PRN (14:36)
[2016-10-07] MEDS: MIRTAZAPINE 15 MG TABLET PO SCH (19:42)
[2016-10-07 19:45] VITALS: BP 152/85
[2016-10-07] MEDS: LISINOPRIL 20 MG TABLET PO SCH (19:47)
[2016-10-07] MEDS: SODIUM CHLORIDE 0.9% IV SCH (21:35)
[2016-10-07] MEDS: DAPTOMYCIN IV SCH (21:35)
[2016-10-08] MEDS: OXYcodone IR 5MG TABLET PO PRN ×2 (01:24→21:07)
[2016-10-08 02:55] VITALS: BP 137/89
[2016-10-08] MEDS: METOPROLOL TARTRATE 25 MG TABLET PO SCH ×2 (05:41→17:46)
[2016-10-08] MEDS: METOCLOPRAMIDE 10MG TABLET PO SCH ×4 (05:42→21:07)
[2016-10-08] MEDS: NYSTATIN 500,000 UNITS/5 ML UDC PO SCH ×3 (05:42→16:00)
[2016-10-08 05:58] LABS: HEMOGLOBIN 7.4 g/dL (11.7-16.4)
[2016-10-08 06:10] LABS: BLOOD UREA NITROGEN 23 mg/dL (7-18)
[2016-10-08 07:39] LABS: DIFF TOTAL CELLS COUNTED 100 CELL DIFF
[2016-10-08 07:41] LABS: VERIFY COUNTS? YES
[2016-10-08 07:43] LABS: ANISOCYTOSIS 2+; MICROCYTOSIS 1+; POLYCHROMASIA 1+
[2016-10-08 07:44] LABS: SPHEROCYTES 1+
[2016-10-08] MEDS: ACETAMINOPHEN 325 MG TABLET PO PRN (07:51)
[2016-10-08] MEDS: PANTOPROZOLE 40MG TABLET PO SCH (07:52)
[2016-10-08] MEDS: DOCUSATE 100 MG CAPSULE PO SCH ×2 (07:52→21:08)
[2016-10-08] MEDS: MAGNESIUM OXIDE 400 MG TABLET PO SCH (07:53)
[2016-10-08] MEDS: LISINOPRIL 20 MG TABLET PO SCH ×2 (07:53→21:08)
[2016-10-08] MEDS: SERTRALINE 50MG TABLET PO SCH (07:55)
[2016-10-08 08:01] VITALS: BP 144/81
[2016-10-08 14:15] VITALS: BP 124/82
[2016-10-08] MEDS ORDERED: EVACUATED CONTAINER IVPB ONE (14:30)
[2016-10-08] MEDS ORDERED: IMMUNE GLOBULIN IVPB ONE (14:30)
[2016-10-08] MEDS: LORazepam 0.5MG TABLET PO PRN (16:34)
[2016-10-08] MEDS: ONDANSETRON 2MG/ML, 2ML IVP PRN (17:48)
[2016-10-08 20:55] VITALS: BP 124/81
[2016-10-08] MEDS: MIRTAZAPINE 15 MG TABLET PO SCH (21:07)
[2016-10-08] MEDS: SODIUM CHLORIDE 0.9% IV SCH (21:08)
[2016-10-08] MEDS: DAPTOMYCIN IV SCH (21:08)
[2016-10-08 23:25] LABS: IS PT STATUS REG ER OR PRE ER? NO
[2016-10-09] MEDS: LORazepam 0.5MG TABLET PO PRN ×3 (00:19→13:50)
[2016-10-09] MEDS: ONDANSETRON 2MG/ML, 2ML IVP PRN ×3 (00:19→12:58)
[2016-10-09] MEDS: ACETAMINOPHEN 325 MG TABLET PO PRN ×3 (00:44→11:11)
[2016-10-09 02:55] VITALS: BP 152/98
[2016-10-09] MEDS: OXYcodone IR 5MG TABLET PO PRN (04:37)
[2016-10-09 05:08] LABS: HEMOGLOBIN 7.1 g/dL (11.7-16.4)
[2016-10-09 05:11] LABS: BLOOD UREA NITROGEN 21 mg/dL (7-18)
[2016-10-09 05:22] LABS: IS PT STATUS REG ER OR PRE ER? NO
[2016-10-09] MEDS: METOPROLOL TARTRATE 25 MG TABLET PO SCH (06:22)
[2016-10-09 07:05] VITALS: BP 148/98
[2016-10-09] MEDS: METOCLOPRAMIDE 10MG TABLET PO SCH ×4 (08:54→21:21)
[2016-10-09] MEDS: PANTOPROZOLE 40MG TABLET PO SCH (08:56)
[2016-10-09] MEDS: SERTRALINE 50MG TABLET PO SCH (08:57)
[2016-10-09] MEDS: MAGNESIUM OXIDE 400 MG TABLET PO SCH (08:57)
[2016-10-09] MEDS: LISINOPRIL 20 MG TABLET PO SCH ×2 (08:57→21:20)
[2016-10-09] MEDS ORDERED: FLUCONAZOLE 200 MG TABLET PO SCH (09:00)
[2016-10-09] MEDS: DOCUSATE 100 MG CAPSULE PO SCH ×2 (09:01→21:20)
[2016-10-09] MEDS ORDERED: POTASSIUM CHLORIDE 20 MEQ TAB.ER.PRT PO ONE (12:00)
[2016-10-09 13:00] VITALS: BP 151/91
[2016-10-09] MEDS ORDERED: LORazepam 1MG TABLET ONE (13:45)
[2016-10-09] MEDS: METOPROLOL TARTRATE 50 MG TABLET PO SCH (18:00)
[2016-10-09 19:31] VITALS: BP 136/86
[2016-10-09] MEDS: MIRTAZAPINE 15 MG TABLET PO SCH (21:21)
[2016-10-09] MEDS: SODIUM CHLORIDE 0.9% IV SCH (21:23)
[2016-10-09] MEDS: DAPTOMYCIN IV SCH (21:23)
[2016-10-10 01:45] VITALS: BP 150/96
[2016-10-10 05:07] VITALS: BP 128/89
[2016-10-10] MEDS: METOPROLOL TARTRATE 50 MG TABLET PO SCH ×2 (05:08→18:31)
[2016-10-10 05:39] LABS: BLOOD UREA NITROGEN 18 mg/dL (7-18)
[2016-10-10 06:26] LABS: DIFF TOTAL CELLS COUNTED 100 CELL DIFF
[2016-10-10 06:30] LABS: MICROCYTOSIS 1+; VERIFY COUNTS? YES
[2016-10-10 06:31] LABS: ANISOCYTOSIS 2+; ECHINOCYTES 1+
[2016-10-10 06:32] LABS: POLYCHROMASIA 1+
[2016-10-10 06:34] LABS: LARGE PLATELETS 1+
[2016-10-10] MEDS: METOCLOPRAMIDE 10MG TABLET PO SCH ×4 (07:00→20:18)
[2016-10-10 07:05] VITALS: BP 133/83
[2016-10-10] MEDS ORDERED: POTASSIUM CHLORIDE 20 MEQ TAB.ER.PRT PO ONE (10:00)
[2016-10-10] MEDS ORDERED: REGADENOSON 0.4 MG/5 ML SYRINGE ONE (11:39)
[2016-10-10 13:03] VITALS: BP 127/80
[2016-10-10] MEDS: PANTOPROZOLE 40MG TABLET PO SCH (13:50)
[2016-10-10] MEDS: DOCUSATE 100 MG CAPSULE PO SCH ×2 (13:52→20:18)
[2016-10-10] MEDS: FLUCONAZOLE 100 MG TABLET PO SCH (13:53)
[2016-10-10] MEDS: MAGNESIUM OXIDE 400 MG TABLET PO SCH (13:53)
[2016-10-10] MEDS: LISINOPRIL 20 MG TABLET PO SCH ×2 (13:54→20:17)
[2016-10-10] MEDS: SERTRALINE 50MG TABLET PO SCH (13:54)
[2016-10-10] MEDS ORDERED: LORazepam 1MG TABLET ONE (15:36)
[2016-10-10] MEDS: LORazepam 0.5MG TABLET PO PRN ×2 (15:39→18:31)
[2016-10-10 18:43] VITALS: BP 153/100
[2016-10-10] MEDS: OXYcodone IR 5MG TABLET PO PRN (18:45)
[2016-10-10] MEDS: MIRTAZAPINE 15 MG TABLET PO SCH (20:17)
[2016-10-10] MEDS: SODIUM CHLORIDE 0.9% IV SCH (21:46)
[2016-10-10] MEDS: DAPTOMYCIN IV SCH (21:46)
[2016-10-11 01:51] VITALS: BP 136/93
[2016-10-11 05:16] VITALS: BP 131/89
[2016-10-11] MEDS: METOPROLOL TARTRATE 50 MG TABLET PO SCH ×2 (05:19→17:45)
[2016-10-11 05:37] LABS: HEMOGLOBIN 7.1 g/dL (11.7-16.4)
[2016-10-11 05:49] LABS: BLOOD UREA NITROGEN 18 mg/dL (7-18)
[2016-10-11] MEDS ORDERED: POTASSIUM CHLORIDE 20 MEQ TAB.ER.PRT PO ONE ×3 (07:00→21:00)
[2016-10-11] MEDS: METOCLOPRAMIDE 10MG TABLET PO SCH ×4 (07:00→20:05)
[2016-10-11 09:04] VITALS: BP 137/88
[2016-10-11] MEDS: MAGNESIUM OXIDE 400 MG TABLET PO SCH (11:09)
[2016-10-11] MEDS: FLUCONAZOLE 100 MG TABLET PO SCH (11:09)
[2016-10-11] MEDS: DOCUSATE 100 MG CAPSULE PO SCH ×2 (11:10→20:05)
[2016-10-11] MEDS: PANTOPROZOLE 40MG TABLET PO SCH (11:10)
[2016-10-11] MEDS: LISINOPRIL 20 MG TABLET PO SCH ×2 (11:10→20:05)
[2016-10-11] MEDS: SERTRALINE 50MG TABLET PO SCH (11:10)
[2016-10-11 15:46] VITALS: BP 134/98
[2016-10-11] MEDS: LORazepam 0.5MG TABLET PO PRN ×2 (17:44→18:57)
[2016-10-11] MEDS: OXYcodone IR 5MG TABLET PO PRN ×2 (17:45→18:57)
[2016-10-11 19:58] VITALS: BP 124/83
[2016-10-11] MEDS: MIRTAZAPINE 15 MG TABLET PO SCH (20:04)
[2016-10-11] MEDS: DAPTOMYCIN IV SCH (21:54)
[2016-10-11] MEDS: SODIUM CHLORIDE 0.9% IV SCH (21:54)
[2016-10-12] VITALS (13 sets, daily range): BP systolic 123–149; BP diastolic 76–104
[2016-10-12 04:58] LABS: BLOOD UREA NITROGEN 18 mg/dL (7-18)
[2016-10-12 05:00] LABS: HEMOGLOBIN 6.9 g/dL (11.7-16.4)
[2016-10-12 05:55] LABS: DIFF TOTAL CELLS COUNTED 100 CELL DIFF
[2016-10-12 05:57] LABS: ANISOCYTOSIS 1+; MICROCYTOSIS 1+; POLYCHROMASIA 1+; VERIFY COUNTS? YES
[2016-10-12] MEDS: METOPROLOL TARTRATE 50 MG TABLET PO SCH ×2 (06:33→17:43)
[2016-10-12] MEDS: LISINOPRIL 20 MG TABLET PO SCH ×3 (06:52→20:10)
[2016-10-12] MEDS: METOCLOPRAMIDE 10MG TABLET PO SCH ×4 (06:52→20:10)
[2016-10-12] MEDS: PANTOPROZOLE 40MG TABLET PO SCH (06:52)
[2016-10-12] MEDS: MAGNESIUM OXIDE 400 MG TABLET PO SCH (06:52)
[2016-10-12] MEDS: FLUCONAZOLE 100 MG TABLET PO SCH (06:52)
[2016-10-12] MEDS: DOCUSATE 100 MG CAPSULE PO SCH ×2 (06:52→20:11)
[2016-10-12] MEDS: SERTRALINE 50MG TABLET PO SCH (06:53)
[2016-10-12] MEDS: ACETAMINOPHEN 325 MG TABLET PO PRN (10:56)
[2016-10-12 12:33] LABS: HEMOGLOBIN 10.1 g/dL (11.7-16.4)
[2016-10-12] MEDS: NYSTATIN 500,000 UNITS/5 ML UDC PO SCH ×3 (16:14→21:00)
[2016-10-12] MEDS: DIPHENHYDRAMINE 50 MG/ML, 1ML IVPush PRN (16:14)
[2016-10-12] MEDS: OXYcodone IR 5MG TABLET PO PRN (20:09)
[2016-10-12] MEDS: LORazepam 0.5MG TABLET PO PRN (20:09)
[2016-10-12] MEDS: MIRTAZAPINE 15 MG TABLET PO SCH (20:09)
[2016-10-12] MEDS: SODIUM CHLORIDE 0.9% IV SCH (21:01)
[2016-10-12] MEDS: DAPTOMYCIN IV SCH (21:01)
[2016-10-12] MEDS ORDERED: TRAZODONE 50MG TABLET PO ONE (22:30)
[2016-10-13 06:27] VITALS: BP 126/91
[2016-10-13 06:37] VITALS: BP 132/90
[2016-10-13] MEDS: PANTOPROZOLE 40MG TABLET PO SCH (07:54)
[2016-10-13] MEDS: DOCUSATE 100 MG CAPSULE PO SCH ×2 (07:55→20:02)
[2016-10-13] MEDS: METOPROLOL TARTRATE 50 MG TABLET PO SCH ×2 (07:55→17:48)
[2016-10-13] MEDS: MAGNESIUM OXIDE 400 MG TABLET PO SCH (07:55)
[2016-10-13] MEDS: LISINOPRIL 20 MG TABLET PO SCH ×2 (07:55→20:00)
[2016-10-13] MEDS: SERTRALINE 50MG TABLET PO SCH (07:56)
[2016-10-13] MEDS: METOCLOPRAMIDE 10MG TABLET PO SCH ×4 (07:56→20:01)
[2016-10-13] MEDS: NYSTATIN 500,000 UNITS/5 ML UDC PO SCH ×3 (11:00→20:01)
[2016-10-13 12:55] VITALS: BP 143/95
[2016-10-13] MEDS: ACETAMINOPHEN 325 MG TABLET PO PRN (13:36)
[2016-10-13 19:50] VITALS: BP 137/97
[2016-10-13] MEDS: MIRTAZAPINE 15 MG TABLET PO SCH (20:01)
[2016-10-13] MEDS ORDERED: TRAZODONE 50MG TABLET PO ONE (21:00)
[2016-10-13] MEDS: DAPTOMYCIN IV SCH (21:27)
[2016-10-13] MEDS: SODIUM CHLORIDE 0.9% IV SCH (21:27)
[2016-10-14 01:40] VITALS: BP 130/89
[2016-10-14] MEDS: OXYcodone IR 5MG TABLET PO PRN (02:04)
[2016-10-14 04:46] LABS: HEMOGLOBIN 9.9 g/dL (11.7-16.4)
[2016-10-14 04:54] LABS: BLOOD UREA NITROGEN 17 mg/dL (7-18); C-REACTIVE PROTEIN, QUANT 0.69 mg/dL (0.02-0.49)
[2016-10-14] MEDS: NYSTATIN 500,000 UNITS/5 ML UDC PO SCH ×4 (06:00→20:09)
[2016-10-14] MEDS: METOCLOPRAMIDE 10MG TABLET PO SCH ×4 (06:19→20:09)
[2016-10-14] MEDS: METOPROLOL TARTRATE 50 MG TABLET PO SCH ×2 (06:19→17:36)
[2016-10-14] MEDS: PANTOPROZOLE 40MG TABLET PO SCH (08:20)
[2016-10-14] MEDS: MAGNESIUM OXIDE 400 MG TABLET PO SCH (08:21)
[2016-10-14] MEDS: LISINOPRIL 20 MG TABLET PO SCH ×2 (08:21→20:09)
[2016-10-14] MEDS: SERTRALINE 50MG TABLET PO SCH (08:21)
[2016-10-14] MEDS: DOCUSATE 100 MG CAPSULE PO SCH ×2 (08:21→20:10)
[2016-10-14 08:35] VITALS: BP 121/86
[2016-10-14 14:07] VITALS: BP 124/85
[2016-10-14 17:36] VITALS: BP 120/85
[2016-10-14] MEDS ORDERED: LORazepam 1MG TABLET ONE (17:45)
[2016-10-14] MEDS: LORazepam 0.5MG TABLET PO PRN (17:48)
[2016-10-14] MEDS: MIRTAZAPINE 15 MG TABLET PO SCH (20:09)
[2016-10-14] MEDS: DIPHENHYDRAMINE 50 MG/ML, 1ML IVPush PRN (20:12)
[2016-10-14 20:21] VITALS: BP 125/86
[2016-10-14] MEDS ORDERED: TRAZODONE 50MG TABLET PO ONE (22:30)
[2016-10-14] MEDS: DAPTOMYCIN IV SCH (22:47)
[2016-10-14] MEDS: SODIUM CHLORIDE 0.9% IV SCH (22:47)
[2016-10-15] VITALS (13 sets, daily range): BP systolic 111–157; BP diastolic 65–103
[2016-10-15] MEDS: DIPHENHYDRAMINE 50 MG/ML, 1ML IVPush PRN ×3 (02:30→20:56)
[2016-10-15] MEDS: PANTOPROZOLE 40MG TABLET PO SCH ×2 (03:58→08:32)
[2016-10-15] MEDS: METOPROLOL TARTRATE 50 MG TABLET PO SCH ×2 (03:58→17:47)
[2016-10-15] MEDS: NYSTATIN 500,000 UNITS/5 ML UDC PO SCH ×5 (03:58→20:52)
[2016-10-15] MEDS: METOCLOPRAMIDE 10MG TABLET PO SCH ×4 (03:58→20:53)
[2016-10-15 06:08] LABS: HEMOGLOBIN 9.2 g/dL (11.7-16.4)
[2016-10-15 06:17] LABS: BLOOD UREA NITROGEN 17 mg/dL (7-18)
[2016-10-15 06:21] LABS: ASPARTATE AMINO TRANSFERASE 27 U/L (15-37); C-REACTIVE PROTEIN, QUANT 0.48 mg/dL (0.02-0.49)
[2016-10-15 06:50] LABS: DIFF TOTAL CELLS COUNTED 100 CELL DIFF
[2016-10-15 06:58] LABS: ANISOCYTOSIS 1+; VERIFY COUNTS? YES
[2016-10-15 07:04] LABS: POIKILOCYTOSIS 1+
[2016-10-15] MEDS: LISINOPRIL 20 MG TABLET PO SCH ×2 (08:32→20:52)
[2016-10-15] MEDS: SERTRALINE 50MG TABLET PO SCH (08:32)
[2016-10-15] MEDS: DOCUSATE 100 MG CAPSULE PO SCH ×2 (08:39→20:51)
[2016-10-15] MEDS: MAGNESIUM OXIDE 400 MG TABLET PO SCH ×2 (08:39→15:50)
[2016-10-15] MEDS ORDERED: FLUMAZENIL 0.1 MG/1 ML, 5ML ONE (09:44)
[2016-10-15] MEDS ORDERED: NALOXONE 1 MG/ML, 2ML ONE (09:44)
[2016-10-15] MEDS ORDERED: MIDAZOLAM 1 MG/ML, 5ML ONE (09:44)
[2016-10-15] MEDS ORDERED: FENTANYL PF 100 MCG/2ML ONE (09:44)
[2016-10-15] MEDS: OXYcodone IR 5MG TABLET PO PRN ×2 (12:42→18:39)
[2016-10-15] MEDS: ACETAMINOPHEN 325 MG TABLET PO PRN (17:47)
[2016-10-15] MEDS: SODIUM CHLORIDE 0.9% IV SCH (20:51)
[2016-10-15] MEDS: DAPTOMYCIN IV SCH (20:51)
[2016-10-15] MEDS: MIRTAZAPINE 15 MG TABLET PO SCH (21:09)
[2016-10-16 05:15] VITALS: BP 118/77
[2016-10-16] MEDS: NYSTATIN 500,000 UNITS/5 ML UDC PO SCH ×4 (05:20→20:52)
[2016-10-16] MEDS: OXYcodone IR 5MG TABLET PO PRN ×3 (05:27→20:53)
[2016-10-16] MEDS: DIPHENHYDRAMINE 50 MG/ML, 1ML IVPush PRN ×2 (05:27→14:13)
[2016-10-16] MEDS: METOPROLOL TARTRATE 50 MG TABLET PO SCH ×2 (05:27→18:36)
[2016-10-16 06:01] LABS: BLOOD UREA NITROGEN 21 mg/dL (7-18)
[2016-10-16 06:06] LABS: ASPARTATE AMINO TRANSFERASE 25 U/L (15-37)
[2016-10-16] MEDS: METOCLOPRAMIDE 10MG TABLET PO SCH ×4 (06:42→20:53)
[2016-10-16 07:59] VITALS: BP 103/67
[2016-10-16] MEDS: LISINOPRIL 20 MG TABLET PO SCH ×3 (08:56→12:40)
[2016-10-16] MEDS: SERTRALINE 50MG TABLET PO SCH (08:56)
[2016-10-16] MEDS: MAGNESIUM OXIDE 400 MG TABLET PO SCH (08:56)
[2016-10-16] MEDS: DOCUSATE 100 MG CAPSULE PO SCH ×3 (08:56→12:40)
[2016-10-16 15:17] VITALS: BP 121/76
[2016-10-16] MEDS: MIRTAZAPINE 15 MG TABLET PO SCH (20:53)
[2016-10-16] MEDS: LORazepam 0.5MG TABLET PO PRN (20:53)
[2016-10-16 20:55] VITALS: BP 133/85
[2016-10-16] MEDS: SODIUM CHLORIDE 0.9% IV SCH (21:07)
[2016-10-16] MEDS: DAPTOMYCIN IV SCH (21:07)
[2016-10-17 04:49] VITALS: BP 133/76
[2016-10-17 05:17] LABS: HEMOGLOBIN 7.5 g/dL (11.7-16.4)
[2016-10-17 05:29] LABS: BLOOD UREA NITROGEN 23 mg/dL (7-18)
[2016-10-17] MEDS: NYSTATIN 500,000 UNITS/5 ML UDC PO SCH ×4 (06:00→21:00)
[2016-10-17 06:11] LABS: DIFF TOTAL CELLS COUNTED 100 CELL DIFF
[2016-10-17] MEDS: OXYcodone IR 5MG TABLET PO PRN ×3 (06:12→20:12)
[2016-10-17] MEDS: METOPROLOL TARTRATE 50 MG TABLET PO SCH ×2 (06:12→18:35)
[2016-10-17 06:17] LABS: VERIFY COUNTS? YES
[2016-10-17 06:18] LABS: ANISOCYTOSIS 1+
[2016-10-17 06:19] LABS: POLYCHROMASIA 1+
[2016-10-17 07:44] VITALS: BP 103/57
[2016-10-17] MEDS: MAGNESIUM OXIDE 400 MG TABLET PO SCH (07:47)
[2016-10-17] MEDS: METOCLOPRAMIDE 10MG TABLET PO SCH ×4 (07:47→20:14)
[2016-10-17] MEDS: LISINOPRIL 20 MG TABLET PO SCH ×2 (07:47→20:13)
[2016-10-17] MEDS: DOCUSATE 100 MG CAPSULE PO SCH ×2 (07:47→20:12)
[2016-10-17] MEDS: SERTRALINE 50MG TABLET PO SCH (07:47)
[2016-10-17] MEDS: PANTOPROZOLE 40MG TABLET PO SCH (07:47)
[2016-10-17] MEDS ORDERED: DIPHENHYDRAMINE 50 MG/ML, 1ML IVPush ONE (14:00)
[2016-10-17] MEDS ORDERED: SODIUM CHLORIDE 0.9% IV ONE (14:00)
[2016-10-17] MEDS ORDERED: RITUXIMAB IV ONE (14:00)
[2016-10-17 14:30] VITALS: BP 117/82
[2016-10-17] MEDS: LORazepam 0.5MG TABLET PO PRN (15:11)
[2016-10-17] MEDS: ACETAMINOPHEN 325 MG TABLET PO PRN (15:41)
[2016-10-17] MEDS ORDERED: ACETAMINOPHEN 325 MG TABLET PO ONE (20:00)
[2016-10-17] MEDS: DIPHENHYDRAMINE 50 MG/ML, 1ML IVPush ONE ×2 (20:00→20:12)
[2016-10-17] MEDS: MIRTAZAPINE 15 MG TABLET PO SCH (20:13)
[2016-10-17] MEDS: DIPHENHYDRAMINE 50 MG/ML, 1ML IVPush PRN (20:16)
[2016-10-17] MEDS: DAPTOMYCIN IV SCH (21:23)
[2016-10-17] MEDS: SODIUM CHLORIDE 0.9% IV SCH (21:23)
[2016-10-17 22:00] VITALS: BP 114/80
[2016-10-18] MEDS: OXYcodone IR 5MG TABLET PO PRN ×3 (02:43→17:10)
[2016-10-18] MEDS: ACETAMINOPHEN 325 MG TABLET PO PRN ×2 (02:43→17:10)
[2016-10-18] MEDS: DIPHENHYDRAMINE 50 MG/ML, 1ML IVPush PRN ×3 (02:43→17:10)
[2016-10-18 02:53] VITALS: BP 120/85
[2016-10-18 05:04] LABS: HEMOGLOBIN 7.4 g/dL (11.7-16.4)
[2016-10-18 05:13] LABS: BLOOD UREA NITROGEN 23 mg/dL (7-18)
[2016-10-18 05:18] LABS: ASPARTATE AMINO TRANSFERASE 39 U/L (15-37)
[2016-10-18] MEDS: METOPROLOL TARTRATE 50 MG TABLET PO SCH ×2 (05:26→18:00)
[2016-10-18] MEDS: NYSTATIN 500,000 UNITS/5 ML UDC PO SCH ×4 (05:27→20:31)
[2016-10-18 05:47] LABS: DIFF TOTAL CELLS COUNTED 100 CELL DIFF
[2016-10-18 05:49] LABS: ANISOCYTOSIS 1+; VERIFY COUNTS? YES
[2016-10-18 05:50] LABS: MICROCYTOSIS 1+
[2016-10-18] MEDS: METOCLOPRAMIDE 10MG TABLET PO SCH ×4 (08:54→20:31)
[2016-10-18] MEDS: PANTOPROZOLE 40MG TABLET PO SCH (08:54)
[2016-10-18] MEDS: DOCUSATE 100 MG CAPSULE PO SCH ×2 (08:57→20:31)
[2016-10-18] MEDS: SERTRALINE 50MG TABLET PO SCH (08:58)
[2016-10-18] MEDS: LISINOPRIL 20 MG TABLET PO SCH ×2 (08:58→20:31)
[2016-10-18] MEDS: MAGNESIUM OXIDE 400 MG TABLET PO SCH (08:58)
[2016-10-18 09:02] VITALS: BP 112/64
[2016-10-18] MEDS: LINEZOLID PMX 600MG/300ML 300 ML IV SCH (13:12)
[2016-10-18] MEDS: LORazepam 0.5MG TABLET PO PRN ×2 (13:21→20:31)
[2016-10-18 15:30] VITALS: BP 119/82
[2016-10-18 18:32] VITALS: BP 108/58
[2016-10-18 19:15] VITALS: BP 96/50
[2016-10-18] MEDS: MIRTAZAPINE 15 MG TABLET PO SCH (20:31)
[2016-10-19] MEDS: OXYcodone IR 5MG TABLET PO PRN ×5 (00:12→23:44)
[2016-10-19] MEDS: DIPHENHYDRAMINE 50 MG/ML, 1ML IVPush PRN ×5 (00:12→23:44)
[2016-10-19] MEDS: LINEZOLID PMX 600MG/300ML 300 ML IV SCH ×3 (00:12→23:48)
[2016-10-19 03:27] VITALS: BP 125/72
[2016-10-19] MEDS: NYSTATIN 500,000 UNITS/5 ML UDC PO SCH ×4 (06:00→22:39)
[2016-10-19] MEDS: METOPROLOL TARTRATE 50 MG TABLET PO SCH ×2 (06:39→17:55)
[2016-10-19 06:42] LABS: HEMOGLOBIN 7.8 g/dL (11.7-16.4)
[2016-10-19 06:49] LABS: BLOOD UREA NITROGEN 24 mg/dL (7-18)
[2016-10-19 07:16] LABS: DIFF TOTAL CELLS COUNTED 100 CELL DIFF
[2016-10-19 07:20] LABS: VERIFY COUNTS? YES
[2016-10-19 07:22] LABS: ANISOCYTOSIS 1+; MICROCYTOSIS 1+
[2016-10-19] MEDS: MAGNESIUM OXIDE 400 MG TABLET PO SCH (08:58)
[2016-10-19] MEDS: LISINOPRIL 20 MG TABLET PO SCH ×2 (08:58→22:39)
[2016-10-19] MEDS: DOCUSATE 100 MG CAPSULE PO SCH ×2 (08:58→22:39)
[2016-10-19] MEDS: METOCLOPRAMIDE 10MG TABLET PO SCH ×4 (08:58→21:00)
[2016-10-19] MEDS: PANTOPROZOLE 40MG TABLET PO SCH (08:58)
[2016-10-19 09:00] VITALS: BP 111/61
[2016-10-19] MEDS: LORazepam 0.5MG TABLET PO PRN ×2 (09:29→15:42)
[2016-10-19 14:57] VITALS: BP 113/74
[2016-10-19] MEDS: ACETAMINOPHEN 325 MG TABLET PO PRN (15:42)
[2016-10-19 20:49] VITALS: BP 91/53
[2016-10-19] MEDS: MIRTAZAPINE 15 MG TABLET PO SCH (22:40)
[2016-10-20 04:41] VITALS: BP 103/65
[2016-10-20 04:53] LABS: ASPARTATE AMINO TRANSFERASE 31 U/L (15-37); BLOOD UREA NITROGEN 24 mg/dL (7-18)
[2016-10-20 04:56] LABS: HEMOGLOBIN 7.3 g/dL (11.7-16.4)
[2016-10-20] MEDS: OXYcodone IR 5MG TABLET PO PRN ×5 (05:56→21:51)
[2016-10-20] MEDS: METOPROLOL TARTRATE 50 MG TABLET PO SCH ×2 (05:56→17:52)
[2016-10-20] MEDS: DIPHENHYDRAMINE 50 MG/ML, 1ML IVPush PRN ×4 (05:57→23:56)
[2016-10-20 06:00] LABS: DIFF TOTAL CELLS COUNTED 100 CELL DIFF
[2016-10-20] MEDS: NYSTATIN 500,000 UNITS/5 ML UDC PO SCH ×4 (06:00→21:00)
[2016-10-20 06:03] LABS: ANISOCYTOSIS 1+; MICROCYTOSIS 1+; POLYCHROMASIA 1+; VERIFY COUNTS? YES
[2016-10-20 07:36] VITALS: BP 105/61
[2016-10-20] MEDS: ACETAMINOPHEN 325 MG TABLET PO PRN ×2 (08:10→16:49)
[2016-10-20] MEDS: PANTOPROZOLE 40MG TABLET PO SCH (08:11)
[2016-10-20] MEDS: DOCUSATE 100 MG CAPSULE PO SCH ×2 (08:11→21:00)
[2016-10-20] MEDS: LISINOPRIL 20 MG TABLET PO SCH ×2 (08:11→21:00)
[2016-10-20] MEDS: METOCLOPRAMIDE 10MG TABLET PO SCH ×4 (08:11→21:00)
[2016-10-20] MEDS: MAGNESIUM OXIDE 400 MG TABLET PO SCH (08:11)
[2016-10-20] MEDS: LORazepam 0.5MG TABLET PO PRN ×2 (08:23→16:49)
[2016-10-20] MEDS: LINEZOLID PMX 600MG/300ML 300 ML IV SCH ×2 (11:46→23:56)
[2016-10-20] MEDS ORDERED: D5%-0.9% NACL 1,000 ML IV SCH (14:00)
[2016-10-20 14:10] VITALS: BP 97/52
[2016-10-20 19:03] VITALS: BP 90/54
[2016-10-20] MEDS: MIRTAZAPINE 15 MG TABLET PO SCH (21:52)
[2016-10-21] VITALS (10 sets, daily range): BP systolic 108–131; BP diastolic 68–80
[2016-10-21] MEDS: OXYcodone IR 5MG TABLET PO PRN ×4 (04:43→21:03)
[2016-10-21 05:10] LABS: HEMOGLOBIN 6.8 g/dL (11.7-16.4)
[2016-10-21 05:46] LABS: DIFF TOTAL CELLS COUNTED 100 CELL DIFF
[2016-10-21 05:52] LABS: VERIFY COUNTS? YES
[2016-10-21 05:54] LABS: ANISOCYTOSIS 1+; MICROCYTOSIS 1+
[2016-10-21 05:58] LABS: POLYCHROMASIA 1+
[2016-10-21] MEDS: NYSTATIN 500,000 UNITS/5 ML UDC PO SCH ×4 (06:00→20:57)
[2016-10-21] MEDS: METOPROLOL TARTRATE 50 MG TABLET PO SCH ×2 (06:19→17:52)
[2016-10-21] MEDS: DIPHENHYDRAMINE 50 MG/ML, 1ML IVPush PRN ×3 (06:19→17:49)
[2016-10-21 06:47] LABS: BLOOD UREA NITROGEN 25 mg/dL (7-18)
[2016-10-21] MEDS: METOCLOPRAMIDE 10MG TABLET PO SCH ×4 (08:16→20:54)
[2016-10-21] MEDS: PANTOPROZOLE 40MG TABLET PO SCH (08:17)
[2016-10-21] MEDS: MAGNESIUM OXIDE 400 MG TABLET PO SCH (08:18)
[2016-10-21] MEDS: LISINOPRIL 20 MG TABLET PO SCH ×2 (08:18→20:57)
[2016-10-21] MEDS: DOCUSATE 100 MG CAPSULE PO SCH ×2 (08:19→20:57)
[2016-10-21] MEDS: LORazepam 0.5MG TABLET PO PRN ×2 (10:19→16:59)
[2016-10-21] MEDS: ACETAMINOPHEN 325 MG TABLET PO PRN (12:42)
[2016-10-21 13:19] LABS: BLOOD UREA NITROGEN 23 mg/dL (7-18)
[2016-10-21 13:28] LABS: ASPARTATE AMINO TRANSFERASE 35 U/L (15-37)
[2016-10-21 13:51] LABS: HEMOGLOBIN 6.8 g/dL (11.7-16.4)
[2016-10-21] MEDS: LINEZOLID PMX 600MG/300ML 300 ML IV SCH (17:52)
[2016-10-21] MEDS: MIRTAZAPINE 15 MG TABLET PO SCH (20:52)
[2016-10-22] MEDS: DIPHENHYDRAMINE 50 MG/ML, 1ML IVPush PRN ×4 (01:48→21:26)
[2016-10-22] MEDS: METOPROLOL TARTRATE 50 MG TABLET PO SCH ×2 (06:00→18:57)
[2016-10-22] MEDS: NYSTATIN 500,000 UNITS/5 ML UDC PO SCH ×4 (06:00→19:40)
[2016-10-22] MEDS: LINEZOLID PMX 600MG/300ML 300 ML IV SCH (06:13)
[2016-10-22] MEDS: METOCLOPRAMIDE 10MG TABLET PO SCH ×4 (06:14→19:37)
[2016-10-22 07:59] VITALS: BP 106/74
[2016-10-22 08:32] LABS: BLOOD UREA NITROGEN 25 mg/dL (7-18)
[2016-10-22 08:41] LABS: ASPARTATE AMINO TRANSFERASE 38 U/L (15-37)
[2016-10-22] MEDS: PANTOPROZOLE 40MG TABLET PO SCH (09:10)
[2016-10-22] MEDS: LISINOPRIL 20 MG TABLET PO SCH ×2 (09:11→19:36)
[2016-10-22] MEDS: MAGNESIUM OXIDE 400 MG TABLET PO SCH (09:11)
[2016-10-22] MEDS: DOCUSATE 100 MG CAPSULE PO SCH ×2 (09:11→19:40)
[2016-10-22] MEDS: OXYcodone IR 5MG TABLET PO PRN ×2 (11:09→18:50)
[2016-10-22 13:56] VITALS: BP 127/87
[2016-10-22 14:56] LABS: BLOOD UREA NITROGEN 26 mg/dL (7-18)
[2016-10-22] MEDS: LORazepam 0.5MG TABLET PO PRN (19:35)
[2016-10-22] MEDS: MIRTAZAPINE 15 MG TABLET PO SCH (19:36)
[2016-10-23] MEDS: DIPHENHYDRAMINE 50 MG/ML, 1ML IVPush PRN ×4 (04:26→21:21)
[2016-10-23 04:45] LABS: HEMOGLOBIN 8.8 g/dL (11.7-16.4)
[2016-10-23 04:54] LABS: BLOOD UREA NITROGEN 26 mg/dL (7-18)
[2016-10-23 04:58] LABS: ASPARTATE AMINO TRANSFERASE 37 U/L (15-37)
[2016-10-23] MEDS: NYSTATIN 500,000 UNITS/5 ML UDC PO SCH ×4 (05:43→21:00)
[2016-10-23] MEDS: METOPROLOL TARTRATE 50 MG TABLET PO SCH ×2 (05:43→18:48)
[2016-10-23] MEDS: METOCLOPRAMIDE 10MG TABLET PO SCH ×4 (05:44→21:19)
[2016-10-23] MEDS: PANTOPROZOLE 40MG TABLET PO SCH (09:01)
[2016-10-23] MEDS: MAGNESIUM OXIDE 400 MG TABLET PO SCH (09:02)
[2016-10-23] MEDS: LISINOPRIL 20 MG TABLET PO SCH ×2 (09:02→21:19)
[2016-10-23] MEDS: DOCUSATE 100 MG CAPSULE PO SCH ×2 (09:03→21:00)
[2016-10-23] MEDS: OXYcodone IR 5MG TABLET PO PRN (09:10)
[2016-10-23 09:46] VITALS: BP 122/80
[2016-10-23] MEDS: LORazepam 0.5MG TABLET PO PRN (16:19)
[2016-10-23 21:13] VITALS: BP 124/66
[2016-10-23] MEDS: MIRTAZAPINE 15 MG TABLET PO SCH (21:19)
[2016-10-24 06:22] VITALS: BP 115/71
[2016-10-24 08:20] LABS: HEMOGLOBIN 8.2 g/dL (11.7-16.4)
[2016-10-24 08:22] LABS: BLOOD UREA NITROGEN 33 mg/dL (7-18)
[2016-10-24] MEDS: DOCUSATE 100 MG CAPSULE PO SCH ×2 (08:32→20:24)
[2016-10-24] MEDS: METOCLOPRAMIDE 10MG TABLET PO SCH ×4 (08:32→20:23)
[2016-10-24] MEDS: PANTOPROZOLE 40MG TABLET PO SCH (08:32)
[2016-10-24] MEDS: MAGNESIUM OXIDE 400 MG TABLET PO SCH (08:32)
[2016-10-24] MEDS: METOPROLOL TARTRATE 50 MG TABLET PO SCH ×2 (08:32→17:13)
[2016-10-24] MEDS: LISINOPRIL 20 MG TABLET PO SCH (08:32)
[2016-10-24] MEDS: NYSTATIN 500,000 UNITS/5 ML UDC PO SCH ×4 (08:33→20:23)
[2016-10-24 08:50] LABS: DIFF TOTAL CELLS COUNTED 100 CELL DIFF
[2016-10-24 08:54] LABS: VERIFY COUNTS? YES
[2016-10-24 08:55] LABS: POIKILOCYTOSIS 1+
[2016-10-24] MEDS: OXYcodone IR 5MG TABLET PO PRN ×3 (09:00→21:49)
[2016-10-24] MEDS: DIPHENHYDRAMINE 50 MG/ML, 1ML IVPush PRN ×2 (11:33→18:24)
[2016-10-24] MEDS: LORazepam 0.5MG TABLET PO PRN (13:53)
[2016-10-24 17:10] VITALS: BP 122/94
[2016-10-24 17:12] VITALS: BP 122/94
[2016-10-24 19:55] VITALS: BP 152/91
[2016-10-24] MEDS: MIRTAZAPINE 15 MG TABLET PO SCH (20:23)
[2016-10-25 02:00] VITALS: BP 119/79
[2016-10-25] MEDS: DIPHENHYDRAMINE 50 MG/ML, 1ML IVPush PRN ×3 (04:14→22:56)
[2016-10-25] MEDS: TRIAMCINOLONE CRM 0.1%, 15GM TP SCH ×3 (04:51→20:16)
[2016-10-25] MEDS: MUPIROCIN OINT 2%, 22GM TP SCH ×3 (04:51→20:16)
[2016-10-25] MEDS: SILVER SULF. CRM 1% , 25GM TP SCH ×3 (04:51→20:17)
[2016-10-25] MEDS: NYSTATIN 500,000 UNITS/5 ML UDC PO SCH ×4 (04:52→21:00)
[2016-10-25] MEDS: METOPROLOL TARTRATE 50 MG TABLET PO SCH ×2 (05:12→17:25)
[2016-10-25 05:52] LABS: HEMOGLOBIN 8.8 g/dL (11.7-16.4)
[2016-10-25 05:55] LABS: BLOOD UREA NITROGEN 39 mg/dL (7-18)
[2016-10-25 06:18] LABS: DIFF TOTAL CELLS COUNTED 100 CELL DIFF
[2016-10-25 06:23] LABS: VERIFY COUNTS? YES
[2016-10-25 08:00] VITALS: BP 153/102
[2016-10-25] MEDS ORDERED: SODIUM CHLORIDE 0.9% IV ONE (09:30)
[2016-10-25] MEDS ORDERED: RITUXIMAB IV ONE (09:30)
[2016-10-25] MEDS: FAMOTIDINE 20 MG/2 ML IVPush ONE ×2 (09:53→10:00)
[2016-10-25] MEDS: METOCLOPRAMIDE 10MG TABLET PO SCH ×4 (09:55→20:15)
[2016-10-25] MEDS: PANTOPROZOLE 40MG TABLET PO SCH (09:55)
[2016-10-25] MEDS: DOCUSATE 100 MG CAPSULE PO SCH ×2 (09:56→20:14)
[2016-10-25] MEDS: MAGNESIUM OXIDE 400 MG TABLET PO SCH (09:56)
[2016-10-25] MEDS ORDERED: DIPHENHYDRAMINE 50 MG/ML, 1ML IVPush ONE (10:00)
[2016-10-25] MEDS ORDERED: ACETAMINOPHEN 325 MG TABLET PO ONE (10:00)
[2016-10-25] MEDS: LORazepam 2 MG/ML, 1ML IVPush PRN (13:29)
[2016-10-25 13:53] VITALS: BP 155/97
[2016-10-25] MEDS: OXYcodone IR 5MG TABLET PO PRN (16:09)
[2016-10-25 19:15] VITALS: BP 146/97
[2016-10-25] MEDS: LORazepam 0.5MG TABLET PO PRN (20:14)
[2016-10-25] MEDS: MIRTAZAPINE 15 MG TABLET PO SCH (21:14)
[2016-10-26] MEDS: SILVER SULF. CRM 1% , 25GM TP SCH ×2 (01:05→21:20)
[2016-10-26] MEDS: MUPIROCIN OINT 2%, 22GM TP SCH ×2 (01:05→21:21)
[2016-10-26] MEDS: LORazepam 0.5MG TABLET PO PRN ×2 (01:33→20:56)
[2016-10-26] MEDS: TRAZODONE 50MG TABLET PO PRN (01:35)
[2016-10-26 01:59] VITALS: BP 146/94
[2016-10-26 03:06] LABS: COMPLEMENT C4 9 mg/dL (14-44)
[2016-10-26] MEDS: NYSTATIN 500,000 UNITS/5 ML UDC PO SCH ×4 (04:23→20:25)
[2016-10-26] MEDS: METOPROLOL TARTRATE 50 MG TABLET PO SCH ×2 (06:10→16:58)
[2016-10-26] MEDS: METOCLOPRAMIDE 10MG TABLET PO SCH ×4 (06:11→20:24)
[2016-10-26] MEDS: DIPHENHYDRAMINE 50 MG/ML, 1ML IVPush PRN ×3 (06:33→20:56)
[2016-10-26] MEDS: OXYcodone IR 5MG TABLET PO PRN ×3 (06:39→21:21)
[2016-10-26 06:49] VITALS: BP 148/101
[2016-10-26] MEDS: MAGNESIUM OXIDE 400 MG TABLET PO SCH (09:01)
[2016-10-26] MEDS: PANTOPROZOLE 40MG TABLET PO SCH (09:02)
[2016-10-26] MEDS: DOCUSATE 100 MG CAPSULE PO SCH ×2 (09:02→20:25)
[2016-10-26] MEDS: TRIAMCINOLONE CRM 0.1%, 15GM TP SCH ×2 (09:04→21:21)
[2016-10-26 09:41] LABS: HEMOGLOBIN 8.6 g/dL (11.7-16.4)
[2016-10-26 09:46] LABS: BLOOD UREA NITROGEN 39 mg/dL (7-18)
[2016-10-26 10:08] LABS: DIFF TOTAL CELLS COUNTED 100 CELL DIFF
[2016-10-26 10:20] LABS: VERIFY COUNTS? YES
[2016-10-26 10:22] LABS: ANISOCYTOSIS 1+
[2016-10-26 10:25] LABS: MICROCYTOSIS 1+
[2016-10-26 10:26] LABS: POIKILOCYTOSIS 1+
[2016-10-26] MEDS: ACETAMINOPHEN 325 MG TABLET PO PRN (11:09)
[2016-10-26] MEDS ORDERED: FAMOTIDINE 20 MG/2 ML IVPush ONE (12:00)
[2016-10-26 12:06] LABS: COMPLEMENT C3 30 mg/dL (82-167); COMPLEMENT TOTAL (CH50) 21 U/mL (42-60)
[2016-10-26 13:17] VITALS: BP 155/100
[2016-10-26 18:51] VITALS: BP_SYST 154; BP_SYST 157; BP_DIAS 101
[2016-10-26] MEDS: MIRTAZAPINE 15 MG TABLET PO SCH (20:24)
[2016-10-27 04:00] VITALS: BP 163/108
[2016-10-27] MEDS: METOPROLOL TARTRATE 50 MG TABLET PO SCH ×2 (05:04→16:27)
[2016-10-27] MEDS: NYSTATIN 500,000 UNITS/5 ML UDC PO SCH ×4 (05:04→20:22)
[2016-10-27] MEDS: OXYcodone IR 5MG TABLET PO PRN ×4 (05:16→17:23)
[2016-10-27 05:24] LABS: HEMOGLOBIN 8.3 g/dL (11.7-16.4)
[2016-10-27 05:25] LABS: BLOOD UREA NITROGEN 42 mg/dL (7-18)
[2016-10-27 05:39] LABS: DIFF TOTAL CELLS COUNTED 100 CELL DIFF
[2016-10-27 05:42] LABS: VERIFY COUNTS? YES
[2016-10-27 05:44] LABS: ANISOCYTOSIS 1+; OVALOCYTES 1+; POIKILOCYTOSIS 1+
[2016-10-27 08:24] VITALS: BP 153/99
[2016-10-27] MEDS: MAGNESIUM OXIDE 400 MG TABLET PO SCH (08:28)
[2016-10-27] MEDS: METOCLOPRAMIDE 10MG TABLET PO SCH ×4 (08:28→20:22)
[2016-10-27] MEDS: DOCUSATE 100 MG CAPSULE PO SCH ×2 (08:28→20:21)
[2016-10-27] MEDS: PANTOPROZOLE 40MG TABLET PO SCH (08:28)
[2016-10-27] MEDS: SILVER SULF. CRM 1% , 25GM TP SCH ×2 (08:29→21:00)
[2016-10-27] MEDS: MUPIROCIN OINT 2%, 22GM TP SCH ×2 (08:29→21:00)
[2016-10-27] MEDS: TRIAMCINOLONE CRM 0.1%, 15GM TP SCH ×2 (08:29→21:00)
[2016-10-27] MEDS: DIPHENHYDRAMINE 50 MG/ML, 1ML IVPush PRN ×3 (09:15→22:59)
[2016-10-27] MEDS: SODIUM BICARBONATE 650 MG TABLET PO SCH ×2 (11:38→16:27)
[2016-10-27 13:24] VITALS: BP 155/99
[2016-10-27 18:35] VITALS: BP 159/100
[2016-10-27] MEDS: MIRTAZAPINE 15 MG TABLET PO SCH (20:21)
[2016-10-27] MEDS: LORazepam 0.5MG TABLET PO PRN (20:21)
[2016-10-28] MEDS: TRAZODONE 50MG TABLET PO PRN (00:35)
[2016-10-28 01:49] VITALS: BP 159/96
[2016-10-28] MEDS: OXYcodone IR 5MG TABLET PO PRN ×3 (02:10→20:18)
[2016-10-28] MEDS: ONDANSETRON 2MG/ML, 2ML IVP PRN (04:25)
[2016-10-28 05:33] LABS: HEMOGLOBIN 7.9 g/dL (11.7-16.4)
[2016-10-28] MEDS: NYSTATIN 500,000 UNITS/5 ML UDC PO SCH ×4 (05:48→19:49)
[2016-10-28 06:00] LABS: ASPARTATE AMINO TRANSFERASE 39 U/L (15-37); BLOOD UREA NITROGEN 43 mg/dL (7-18); TOTAL IRON BINDING CAPACITY 137 mcg/dL (250-450)
[2016-10-28] MEDS: METOPROLOL TARTRATE 50 MG TABLET PO SCH ×2 (06:06→17:00)
[2016-10-28] MEDS: DIPHENHYDRAMINE 50 MG/ML, 1ML IVPush PRN ×4 (06:06→23:30)
[2016-10-28 06:42] LABS: DIFF TOTAL CELLS COUNTED 100 CELL DIFF
[2016-10-28 06:45] LABS: VERIFY COUNTS? YES
[2016-10-28 06:46] LABS: ANISOCYTOSIS 1+
[2016-10-28 06:47] LABS: OVALOCYTES 1+; POIKILOCYTOSIS 1+
[2016-10-28] MEDS ORDERED: SODIUM PHOSPHATE 10 MMOL in SODIUM CHLORIDE 0.9% 500 ML IV ONE (08:30)
[2016-10-28 09:27] VITALS: BP 150/93
[2016-10-28] MEDS: METOCLOPRAMIDE 10MG TABLET PO SCH ×4 (10:47→19:49)
[2016-10-28] MEDS: PANTOPROZOLE 40MG TABLET PO SCH (10:47)
[2016-10-28] MEDS: MAGNESIUM OXIDE 400 MG TABLET PO SCH (10:48)
[2016-10-28] MEDS: SODIUM BICARBONATE 650 MG TABLET PO SCH ×3 (10:48→16:59)
[2016-10-28] MEDS: DOCUSATE 100 MG CAPSULE PO SCH ×2 (10:48→19:49)
[2016-10-28] MEDS: SILVER SULF. CRM 1% , 25GM TP SCH ×2 (10:49→19:50)
[2016-10-28] MEDS: TRIAMCINOLONE CRM 0.1%, 15GM TP SCH ×2 (10:49→19:51)
[2016-10-28] MEDS: MUPIROCIN OINT 2%, 22GM TP SCH ×2 (10:49→19:50)
[2016-10-28] MEDS: AMLODIPINE 5 MG TABLET PO SCH (11:15)
[2016-10-28] MEDS: CHOLECALCIFEROL 1,000 UNIT TABLET PO SCH (11:15)
[2016-10-28 15:50] VITALS: BP 149/96
[2016-10-28] MEDS: MIRTAZAPINE 15 MG TABLET PO SCH (19:48)
[2016-10-28] MEDS: LORazepam 0.5MG TABLET PO PRN (20:19)
[2016-10-28 20:46] LABS: ANISOCYTOSIS 1+
[2016-10-28 20:49] LABS: OVALOCYTES 1+
[2016-10-28 21:01] VITALS: BP 146/96
[2016-10-29 01:07] VITALS: BP 138/90
[2016-10-29] MEDS: DIPHENHYDRAMINE 50 MG/ML, 1ML IVPush PRN ×4 (05:15→23:22)
[2016-10-29] MEDS: NYSTATIN 500,000 UNITS/5 ML UDC PO SCH ×4 (06:00→19:45)
[2016-10-29] MEDS: METOPROLOL TARTRATE 50 MG TABLET PO SCH ×2 (06:38→17:09)
[2016-10-29 06:53] VITALS: BP 162/104
[2016-10-29] MEDS: AMLODIPINE 5 MG TABLET PO SCH (09:02)
[2016-10-29] MEDS: PANTOPROZOLE 40MG TABLET PO SCH (09:02)
[2016-10-29] MEDS: DOCUSATE 100 MG CAPSULE PO SCH ×2 (09:02→19:44)
[2016-10-29] MEDS: MAGNESIUM OXIDE 400 MG TABLET PO SCH (09:02)
[2016-10-29] MEDS: CHOLECALCIFEROL 1,000 UNIT TABLET PO SCH (09:02)
[2016-10-29] MEDS: SODIUM BICARBONATE 650 MG TABLET PO SCH ×3 (09:03→17:09)
[2016-10-29] MEDS: MUPIROCIN OINT 2%, 22GM TP SCH ×2 (09:04→21:00)
[2016-10-29] MEDS: METOCLOPRAMIDE 10MG TABLET PO SCH ×4 (09:04→23:22)
[2016-10-29] MEDS: SILVER SULF. CRM 1% , 25GM TP SCH ×2 (09:04→21:00)
[2016-10-29] MEDS: TRIAMCINOLONE CRM 0.1%, 15GM TP SCH ×2 (09:04→21:00)
[2016-10-29] MEDS: OXYcodone IR 5MG TABLET PO PRN (11:27)
[2016-10-29 12:05] LABS: BLOOD UREA NITROGEN 46 mg/dL (7-18)
[2016-10-29 12:15] LABS: HEMOGLOBIN 7.3 g/dL (11.7-16.4)
[2016-10-29 12:16] LABS: DIFF TOTAL CELLS COUNTED 100 CELL DIFF
[2016-10-29 12:19] LABS: ANISOCYTOSIS 1+
[2016-10-29 12:20] LABS: POLYCHROMASIA 1+
[2016-10-29 12:54] LABS: VERIFY COUNTS? YES
[2016-10-29 14:41] VITALS: BP 151/100
[2016-10-29 22:16] VITALS: BP 145/88
[2016-10-29] MEDS: MIRTAZAPINE 15 MG TABLET PO SCH (23:22)
[2016-10-30] MEDS: LORazepam 2 MG/ML, 1ML IVPush PRN (00:27)
[2016-10-30] MEDS: OXYcodone IR 5MG TABLET PO PRN (01:40)
[2016-10-30 04:58] VITALS: BP 146/91
[2016-10-30] MEDS: NYSTATIN 500,000 UNITS/5 ML UDC PO SCH ×3 (06:40→16:00)
[2016-10-30] MEDS: METOPROLOL TARTRATE 50 MG TABLET PO SCH (06:40)
[2016-10-30 07:10] VITALS: BP 136/87
[2016-10-30] MEDS ORDERED: predniSONE 50MG TABLET PO SCH (08:00)
[2016-10-30] MEDS: MAGNESIUM OXIDE 400 MG TABLET PO SCH (08:52)
[2016-10-30] MEDS: METOCLOPRAMIDE 10MG TABLET PO SCH ×3 (08:52→16:00)
[2016-10-30] MEDS: CHOLECALCIFEROL 1,000 UNIT TABLET PO SCH (08:52)
[2016-10-30] MEDS: SODIUM BICARBONATE 650 MG TABLET PO SCH (08:52)
[2016-10-30] MEDS: AMLODIPINE 5 MG TABLET PO SCH (08:52)
[2016-10-30] MEDS: PANTOPROZOLE 40MG TABLET PO SCH (08:52)
[2016-10-30] MEDS: DOCUSATE 100 MG CAPSULE PO SCH (08:52)
[2016-10-30] MEDS: SILVER SULF. CRM 1% , 25GM TP SCH ×2 (08:53→09:00)
[2016-10-30] MEDS: TRIAMCINOLONE CRM 0.1%, 15GM TP SCH ×2 (08:53→09:00)
[2016-10-30] MEDS: MUPIROCIN OINT 2%, 22GM TP SCH ×2 (08:53→09:00)
[2016-10-30 09:27] LABS: HEMOGLOBIN 7.4 g/dL (11.7-16.4)
[2016-10-30 09:36] LABS: BLOOD UREA NITROGEN 47 mg/dL (7-18)
[2016-10-30 09:58] LABS: DIFF TOTAL CELLS COUNTED 100 CELL DIFF
[2016-10-30 10:02] LABS: VERIFY COUNTS? YES
[2016-10-30 10:03] LABS: ANISOCYTOSIS 2+; POLYCHROMASIA 1+
[2016-10-30] MEDS ORDERED: SODIUM BICARBONATE 650 MG TABLET PO SCH (12:00)
[2016-10-30] MEDS ORDERED: SILV25CR4 TP (12:40)
[2016-10-30] MEDS ORDERED: MYCO500T3 PO (12:40)
[2016-10-30] MEDS ORDERED: DOCU-30 PO (12:40)
[2016-10-30] MEDS ORDERED: PRED50TA PO (12:40)
[2016-10-30] MEDS ORDERED: CHOL10003 PO (12:40)
[2016-10-30] MEDS ORDERED: TRAZ50TA18 PO (12:40)
[2016-10-30] MEDS ORDERED: HYDR25TA11 PO (12:40)
[2016-10-30] MEDS ORDERED: MUPI22OI2 TP (12:40)
[2016-10-30] MEDS ORDERED: OXYC5TAB3 PO (12:40)
[2016-10-30] MEDS ORDERED: PANT40TA5 PO (12:40)
[2016-10-30] MEDS ORDERED: SODI650T PO (12:40)
[2016-10-30] MEDS ORDERED: AMLO5TAB2 PO (12:40)
[2016-10-30] MEDS ORDERED: METO50TA82 PO (12:40)
[2016-10-30] MEDS ORDERED: TRIA15CR3 TP (12:40)
[2016-10-30] MEDS: DIPHENHYDRAMINE 50 MG/ML, 1ML IVPush PRN (14:01)
[2016-10-30 14:28] VITALS: BP 136/90
[2016-10-31 12:07] LABS: PROTEINASE 3 (PR-3) AB <3.5 U/mL (0.0-3.5)
== END 2016-10-30 17:20 | DRG 545 ==
LOC: ED 21:27 → EDIP 23:41 → 5SO 09-15 00:54 → 3NW 09-21 19:44 → 4EST 10-09 11:59 → 3NW 10-12 05:10
PROVIDERS: ADMIT Internal Medicine
PROC: 30233R1 Transfusion of Nonautologous Platelets into Peripheral Vein, Percutaneous Approach (ICD-10-PCS; principal; 2016-09-15)
PROC: 30233N1 Transfusion of Nonautologous Red Blood Cells into Peripheral Vein, Percutaneous Approach (ICD-10-PCS; 2016-09-15)
PROC: 0T9B70Z Drainage of Bladder with Drainage Device, Via Natural or Artificial Opening (ICD-10-PCS; 2016-09-15)
PROC: 02HV33Z Insertion of Infusion Device into Superior Vena Cava, Percutaneous Approach (ICD-10-PCS; 2016-09-24)
PROC: B5181ZA Fluoroscopy of Superior Vena Cava using Low Osmolar Contrast, Guidance (ICD-10-PCS; 2016-09-24)
PROC: B548ZZA Ultrasonography of Superior Vena Cava, Guidance (ICD-10-PCS; 2016-09-24)
PROC: 0TB13ZX Excision of Left Kidney, Percutaneous Approach, Diagnostic (ICD-10-PCS; 2016-10-15)
DX: M32.14 Glomerular disease in systemic lupus erythematosus (principal); I33.0 Acute and subacute infective endocarditis; E43 Unspecified severe protein-calorie malnutrition; I50.21 Acute systolic (congestive) heart failure; B25.9 Cytomegaloviral disease, unspecified; D61.818 Other pancytopenia; E87.1 Hypo-osmolality and hyponatremia; I82.619 Acute embolism and thrombosis of superficial veins of unspecified upper extremity; F11.20 Opioid dependence, uncomplicated; I31.3 Pericardial effusion (noninflammatory); B37.0 Candidal stomatitis; N17.9 Acute kidney failure, unspecified; M31.30 Wegener's granulomatosis without renal involvement; I13.0 Hypertensive heart and chronic kidney disease with heart failure and stage 1 through stage 4 chronic kidney disease, or unspecified chronic kidney disease; I76 Septic arterial embolism; L76.32 Postprocedural hematoma of skin and subcutaneous tissue following other procedure; N05.1 Unspecified nephritic syndrome with focal and segmental glomerular lesions; M32.9 Systemic lupus erythematosus, unspecified; G40.909 Epilepsy, unspecified, not intractable, without status epilepticus; F32.9 Major depressive disorder, single episode, unspecified; R73.9 Hyperglycemia, unspecified; I48.0 Paroxysmal atrial fibrillation; E87.6 Hypokalemia; I25.10 Atherosclerotic heart disease of native coronary artery without angina pectoris; B95.7 Other staphylococcus as the cause of diseases classified elsewhere; F41.9 Anxiety disorder, unspecified; F60.9 Personality disorder, unspecified; E87.5 Hyperkalemia; N18.9 Chronic kidney disease, unspecified; Y84.8 Other medical procedures as the cause of abnormal reaction of the patient, or of later complication, without mention of misadventure at the time of the procedure; L73.9 Follicular disorder, unspecified; Z85.41 Personal history of malignant neoplasm of cervix uteri; Z80.42 Family history of malignant neoplasm of prostate; I25.2 Old myocardial infarction; Z91.040 Latex allergy status; Z91.19 Patient's noncompliance with other medical treatment and regimen
CPT/HCPCS: 36415; 36569; 50200; 71010; 71020; 71275; 76604; 76705; 76937; 77001; 77012; 78452; 80048; 80053; 80069; 80307; 81001; 82306; 82550; 82570; 82728; 83010; 83516; 83520; 83540; 83550; 83615; 83735; 83970; 84100; 84132; 84156; 84484; 84550; 85014; 85018; 85025; 85045; 85384; 85610; 85613; 85651; 85670; 85705; 85730; 85732; 86038; 86039; 86140; 86146; 86147; 86160; 86162; 86171; 86225; 86235; 86255; 86256; 86331; 86361; 86376; 86431; 86480; 86592; 86644; 86645; 86663; 86664; 86665; 86703; 86850; 86860; 86880; 86900; 86923; 87040; 87070; 87077; 87081; 87086; 87186; 87305; 87449; 87496; 87497; 87633; 87899; 88300; 88329; 93005; 93017; 93306; 93308; 93321; 93325; 94640; 96374; 99156; 99157; J0696; J0712; J0878; J1459; J2020; J2250; J2405; J2543; J2550; J2785; J2930; J3010; J3370; J3480; J7042; Q0162; Q9967; A9502; C1751; C9898; G0435; J1200; J1570; J1940; J2060; J2310; J3475; J7030; J7040; J7050; J7512; J7517; J9310; P9037; P9040; Q0177; S0028

== ENCOUNTER 2016-10-31 20:09 | Emergency (ER) | payer MEDICAID ==
[~2016-10-31] VITALS: Ht 157.5 cm; Wt 51.6 kg
[~2016-10-31 20:09] MED LIST changes: +AMLO5TAB2 PO; +CHOL10003 PO; +DOCU-30 PO; +HYDR25TA11 PO; +METO50TA82 PO; +MUPI22OI2 TP; +MYCO500T3 PO; +OXYC5TAB3 PO; +PRED50TA PO; +SILV25CR4 TP; +SODI650T PO; +TRAZ50TA18 PO; +TRIA15CR3 TP
[2016-10-31] MEDS ORDERED: SODIUM CHLORIDE FLUSH 10ML SYR IVF ONE (20:30)
[2016-10-31] MEDS ORDERED: ONDANSETRON 2MG/ML, 2ML IVPush ONE (20:30)
[2016-10-31] MEDS ORDERED: SODIUM CHLORIDE 0.9% 1,000ML IVBOLUS ONE (20:30)
[2016-10-31 21:28] LABS: HEMOGLOBIN 7.6 g/dL (11.7-16.4)
[2016-10-31 21:35] LABS: ASPARTATE AMINO TRANSFERASE 35 U/L (15-37); BLOOD UREA NITROGEN 48 mg/dL (7-18)
[2016-10-31] MEDS ORDERED: ONDANSETRON ODT 4 MG ONE (21:45)
[2016-10-31] MEDS ORDERED: OXYcodone/APAP 10/325MG TABLET ONE (21:45)
[2016-10-31 21:50] LABS: DIFF TOTAL CELLS COUNTED 100 CELL DIFF
[2016-10-31 21:55] LABS: ANISOCYTOSIS 1+; VERIFY COUNTS? YES
[2016-10-31 21:56] LABS: POLYCHROMASIA 1+
[2016-10-31 21:57] LABS: OVALOCYTES 1+
[2016-10-31 21:58] LABS: LARGE PLATELETS 1+
[2016-10-31] MEDS ORDERED: OXYcodone/APAP 10/325MG TABLET PO ONE (22:00)
[2016-10-31] MEDS ORDERED: ONDANSETRON ODT 4 MG PO ONE (22:00)
[2016-10-31] MEDS ORDERED: OXYcodone/APAP 5/325MG TABLET ONE (23:56)
[2016-11-01] VITALS: BP 132/65
[2016-11-01] MEDS ORDERED: OXYcodone/APAP 5/325MG TABLET PO ONE (00:30)
== END 2016-11-01 00:16 | disposition home or self-care (01) ==
LOC: ED 23:59
DX: D69.6 Thrombocytopenia, unspecified (principal); E87.6 Hypokalemia; I10 Essential (primary) hypertension; E87.1 Hypo-osmolality and hyponatremia
CPT/HCPCS: 36415; 80053; 84703; 85025; 99284

== ENCOUNTER 2017-01-11 13:42 | Inpatient (IN) | payer MEDICAID ==
[~2017-01-11] VITALS: Ht 157.5 cm; Wt 47.6 kg
[~2017-01-11 13:42] MED LIST changes: -AZIT500T4 PO; +AZIT500T77 PO; -CEFD300C2 PO; +CEFD300C37 PO; -METH125V IV; +METH125V16 IV
[2017-01-11] MEDS ORDERED: PLEASE ENTER HEIGHT AND WEIGHT MC SCH (14:00)
[2017-01-11] MEDS ORDERED: SODIUM CHLORIDE 0.9% 1,000ML IVBOLUS ONE ×2 (14:00→21:00)
[2017-01-11] MEDS ORDERED: SODIUM CHLORIDE FLUSH 10ML SYR IVF ONE (14:00)
[2017-01-11] MEDS ORDERED: SACC250C PO (15:06)
[2017-01-11] MEDS ORDERED: CIPR250T2 PO (15:06)
[2017-01-11] MEDS ORDERED: FAMO20TA7 PO (15:06)
[2017-01-11] MEDS ORDERED: HYDR200T PO (15:06)
[2017-01-11 15:11] LABS: DIFF TOTAL CELLS COUNTED 100 CELL DIFF
[2017-01-11 15:12] LABS: ASPARTATE AMINO TRANSFERASE 11 U/L (15-37); BLOOD UREA NITROGEN 40 mg/dL (7-18); C-REACTIVE PROTEIN, QUANT 0.94 mg/dL (0.02-0.49)
[2017-01-11 15:47] LABS: VERIFY COUNTS? YES
[2017-01-11 15:48] LABS: ANISOCYTOSIS 1+; GIANT PLATELETS 1+; OVALOCYTES 1+; SPHEROCYTES 1+
[2017-01-11 15:52] LABS: IS PT STATUS REG ER OR PRE ER? YES
[2017-01-11] MEDS ORDERED: CEFTRIAXONE PMX 1GM/50ML 50 ML IV ONE (16:00)
[2017-01-11] MEDS ORDERED: CEFTRIAXONE PMX 1GM/50ML 50 ML ONE (16:32)
[2017-01-11] MEDS ORDERED: ACETAMINOPHEN 325 MG TABLET PO PRN (17:00)
[2017-01-11] MEDS: ASPIRIN 325 MG TABLET PO SCH (17:00)
[2017-01-11] MEDS ORDERED: CEFTRIAXONE 1,000 MG in SODIUM CHLORIDE 0.9% 50 ML IV SCH (17:00)
[2017-01-11] MEDS ORDERED: [UNRECOGNIZED DRUG - REMARK] MC SCH (17:00)
[2017-01-11] MEDS ORDERED: NITROGLYCERIN 0.4 MG BOTTLE (25 TABS) SL PRN (17:00)
[2017-01-11] MEDS ORDERED: NITROGLYCERIN 0.4 MG/SPRAY SL PRN (17:00)
[2017-01-11] MEDS ORDERED: DOCUSATE 100 MG CAPSULE PO PRN (17:00)
[2017-01-11] MEDS ORDERED: methylPREDNISolone SOD SUCC 125 MG/2 ML IVPush ONE (17:30)
[2017-01-11] MEDS ORDERED: MORPHINE SULFATE 4 MG/ML, 1ML ONE (17:47)
[2017-01-11] MEDS: morphine SULFATE 10 MG/ML, 1ML IVPush PRN ×2 (17:51→23:03)
[2017-01-11] MEDS ORDERED: OMNIPAQUE 350 MG/ML, 100ML BOTTLE ONE (18:00)
[2017-01-11] MEDS: FLORASTOR 250 MG CAPSULE PO SCH (21:00)
[2017-01-11] MEDS ORDERED: MAGNESIUM SULFATE PMX 4GM/100M 100 ML IV ONE (21:00)
[2017-01-11 21:05] LABS: IS PT STATUS REG ER OR PRE ER? NO
[2017-01-11] MEDS: SODIUM BICARBONATE 650 MG TABLET PO SCH (22:52)
[2017-01-11] MEDS: PANTOPRAZOLE 20MG TABLET PO SCH (22:52)
[2017-01-11] MEDS: HYDROcodone/APAP 5/325 TABLET PO PRN (23:36)
[2017-01-12 01:14] VITALS: BP 103/68
[2017-01-12] MEDS ORDERED: SODIUM CHLORIDE 0.9%, 500ML IVBOLUS ONE (02:30)
[2017-01-12] MEDS: CEFTRIAXONE PMX 1GM/50ML 50 ML IV SCH ×2 (05:07→17:01)
[2017-01-12] MEDS: ASPIRIN 325 MG TABLET PO SCH (05:18)
[2017-01-12 06:17] LABS: BLOOD UREA NITROGEN 35 mg/dL (7-18)
[2017-01-12 06:19] LABS: IS PT STATUS REG ER OR PRE ER? NO
[2017-01-12 06:21] LABS: ASPARTATE AMINO TRANSFERASE 7 U/L (15-37)
[2017-01-12 06:23] LABS: DIFF TOTAL CELLS COUNTED 100 CELL DIFF
[2017-01-12 06:28] LABS: ANISOCYTOSIS 1+; VERIFY COUNTS? YES
[2017-01-12 06:30] VITALS: BP 99/62
[2017-01-12 06:31] LABS: OVALOCYTES 1+
[2017-01-12 06:35] LABS: SPHEROCYTES 1+
[2017-01-12 06:40] LABS: SCHISTOCYTES 1+
[2017-01-12] MEDS: PANTOPRAZOLE 20MG TABLET PO SCH ×2 (08:11→20:38)
[2017-01-12] MEDS: FLORASTOR 250 MG CAPSULE PO SCH ×2 (08:11→20:39)
[2017-01-12] MEDS: SODIUM BICARBONATE 650 MG TABLET PO SCH ×3 (08:11→17:01)
[2017-01-12] MEDS ORDERED: HYDROXYCHLOROQUINE 200 MG TABLET PO SCH (09:00)
[2017-01-12] MEDS: HYDROcodone/APAP 5/325 TABLET PO PRN ×2 (11:52→21:19)
[2017-01-12] MEDS: morphine SULFATE 10 MG/ML, 1ML IVPush PRN ×2 (11:52→23:12)
[2017-01-12 12:24] LABS: IS PT STATUS REG ER OR PRE ER? NO
[2017-01-12 13:28] VITALS: BP 106/68
[2017-01-12 18:02] LABS: IS PT STATUS REG ER OR PRE ER? NO
[2017-01-12 19:43] VITALS: BP 96/58
[2017-01-12 23:55] LABS: IS PT STATUS REG ER OR PRE ER? NO
[2017-01-13] MEDS: HYDROcodone/APAP 5/325 TABLET PO PRN ×4 (02:50→21:26)
[2017-01-13 02:52] VITALS: BP 116/73
[2017-01-13 05:51] LABS: ASPARTATE AMINO TRANSFERASE 12 U/L (15-37); BLOOD UREA NITROGEN 36 mg/dL (7-18)
[2017-01-13] MEDS: CEFTRIAXONE PMX 1GM/50ML 50 ML IV SCH ×2 (06:08→16:28)
[2017-01-13] MEDS: ASPIRIN 325 MG TABLET PO SCH (06:08)
[2017-01-13] MEDS: morphine SULFATE 10 MG/ML, 1ML IVPush PRN ×3 (06:08→22:58)
[2017-01-13 06:23] LABS: DIFF TOTAL CELLS COUNTED 100 CELL DIFF
[2017-01-13 06:38] LABS: ANISOCYTOSIS 1+; OVALOCYTES 1+; SPHEROCYTES 1+; VERIFY COUNTS? YES
[2017-01-13 07:35] VITALS: BP 108/67
[2017-01-13] MEDS ORDERED: methylPREDNISolone SOD SUCC 125 MG/2 ML IVPush SCH (09:00)
[2017-01-13] MEDS: SODIUM BICARBONATE 650 MG TABLET PO SCH ×3 (10:16→16:28)
[2017-01-13] MEDS: PANTOPRAZOLE 20MG TABLET PO SCH ×2 (10:16→21:26)
[2017-01-13] MEDS: FLORASTOR 250 MG CAPSULE PO SCH ×2 (10:17→21:26)
[2017-01-13 14:15] VITALS: BP 106/62
[2017-01-13] MEDS: ONDANSETRON 2MG/ML, 2ML IVPush PRN (17:20)
[2017-01-13 20:41] VITALS: BP 117/79
[2017-01-14 03:09] VITALS: BP 113/77
[2017-01-14] MEDS: ONDANSETRON ODT 4 MG PO PRN ×2 (04:28→09:11)
[2017-01-14] MEDS: CEFTRIAXONE PMX 1GM/50ML 50 ML IV SCH ×4 (05:00→17:30)
[2017-01-14] MEDS: ASPIRIN 325 MG TABLET PO SCH ×2 (06:00→06:10)
[2017-01-14] MEDS: HYDROcodone/APAP 5/325 TABLET PO PRN (06:05)
[2017-01-14 06:46] LABS: BLOOD UREA NITROGEN 39 mg/dL (7-18)
[2017-01-14] MEDS: PANTOPRAZOLE 20MG TABLET PO SCH ×4 (07:30→21:50)
[2017-01-14] MEDS: SODIUM BICARBONATE 650 MG TABLET PO SCH ×6 (08:00→17:30)
[2017-01-14] MEDS: FLORASTOR 250 MG CAPSULE PO SCH ×2 (09:00→21:00)
[2017-01-14] MEDS: ONDANSETRON 2MG/ML, 2ML IVPush PRN ×2 (09:11→15:56)
[2017-01-14] MEDS: morphine SULFATE 10 MG/ML, 1ML IVPush PRN ×2 (15:56→21:55)
[2017-01-14 18:55] VITALS: BP 115/74
[2017-01-15 01:00] VITALS: BP 121/74
[2017-01-15] MEDS: HYDROcodone/APAP 5/325 TABLET PO PRN (01:35)
[2017-01-15] MEDS: CEFTRIAXONE PMX 1GM/50ML 50 ML IV SCH ×2 (05:00→20:17)
[2017-01-15] MEDS: ASPIRIN 325 MG TABLET PO SCH (06:00)
[2017-01-15] MEDS: PANTOPRAZOLE 20MG TABLET PO SCH ×2 (07:30→20:27)
[2017-01-15 07:43] VITALS: BP 111/72
[2017-01-15] MEDS: SODIUM BICARBONATE 650 MG TABLET PO SCH ×3 (08:00→17:00)
[2017-01-15] MEDS: FLORASTOR 250 MG CAPSULE PO SCH ×2 (09:00→20:41)
[2017-01-15] MEDS: morphine SULFATE 10 MG/ML, 1ML IVPush PRN ×3 (09:15→18:35)
[2017-01-15 14:00] VITALS: BP 113/77
[2017-01-15] MEDS: ONDANSETRON 2MG/ML, 2ML IVPush PRN (16:00)
[2017-01-15 17:40] VITALS: BP 116/78
[2017-01-15 18:48] LABS: DIFF TOTAL CELLS COUNTED 100 CELL DIFF
[2017-01-15 19:05] LABS: ANISOCYTOSIS 1+; OVALOCYTES 1+; SCHISTOCYTES 1+; SPHEROCYTES 1+; TARGET CELLS 1+; VERIFY COUNTS? YES
[2017-01-15 20:16] VITALS: BP 111/75
[2017-01-16] MEDS: morphine SULFATE 10 MG/ML, 1ML IVPush PRN ×3 (00:02→08:48)
[2017-01-16 03:20] VITALS: BP 110/73
[2017-01-16 07:16] VITALS: BP 95/60
[2017-01-16 08:10] LABS: BLOOD UREA NITROGEN 32 mg/dL (7-18)
[2017-01-16] MEDS: SODIUM BICARBONATE 650 MG TABLET PO SCH ×2 (08:50→15:52)
[2017-01-16] MEDS: ASPIRIN 325 MG TABLET PO SCH ×2 (08:51→12:25)
[2017-01-16] MEDS: PANTOPRAZOLE 20MG TABLET PO SCH (08:51)
[2017-01-16] MEDS: FLORASTOR 250 MG CAPSULE PO SCH ×2 (08:52→19:35)
[2017-01-16] MEDS: CEFTRIAXONE PMX 1GM/50ML 50 ML IV SCH (08:52)
[2017-01-16 09:38] LABS: DIFF TOTAL CELLS COUNTED 100 CELL DIFF
[2017-01-16 09:41] LABS: VERIFY COUNTS? YES
[2017-01-16 09:42] LABS: ANISOCYTOSIS 1+; OVALOCYTES 1+; SPHEROCYTES 1+
[2017-01-16] MEDS: HYDROcodone/APAP 5/325 TABLET PO PRN ×4 (10:05→21:38)
[2017-01-16 10:09] VITALS: BP 106/75
[2017-01-16] MEDS: CYANOCOBALAMIN 1,000 MCG/ML, 1ML IM SCH (11:30)
[2017-01-16] MEDS: OMEPRAZOLE 20 MG CAPSULE.DR PO SCH (12:01)
[2017-01-16 13:07] VITALS: BP 115/79
[2017-01-16 15:22] LABS: IS PT STATUS REG ER OR PRE ER? NO
[2017-01-16 19:30] VITALS: BP 100/68
[2017-01-16 20:29] LABS: IS PT STATUS REG ER OR PRE ER? NO
[2017-01-17 01:00] VITALS: BP 96/61
[2017-01-17] MEDS: HYDROcodone/APAP 5/325 TABLET PO PRN ×3 (05:19→09:44)
[2017-01-17 07:34] VITALS: BP 94/60
[2017-01-17] MEDS: OMEPRAZOLE 20 MG CAPSULE.DR PO SCH ×2 (08:07→09:44)
[2017-01-17] MEDS: CYANOCOBALAMIN 1,000 MCG/ML, 1ML IM SCH ×2 (08:07→09:44)
[2017-01-17] MEDS: FLORASTOR 250 MG CAPSULE PO SCH ×2 (08:08→09:45)
[2017-01-17 12:25] VITALS: BP 94/61
[2017-01-17] MEDS ORDERED: MYCO500T3 PO (13:26)
[2017-01-17] MEDS ORDERED: ASPI325T4 PO (13:26)
[2017-01-17] MEDS ORDERED: HYDR-3240 PO (13:26)
[2017-01-17] MEDS ORDERED: CYAN10005 PO (13:26)
[2017-01-17] MEDS ORDERED: PRED20TA PO (13:26)
[2017-01-17 14:41] LABS: ASPARTATE AMINO TRANSFERASE 11 U/L (15-37); BLOOD UREA NITROGEN 40 mg/dL (7-18)
[2017-01-17 16:24] LABS: DIFF TOTAL CELLS COUNTED 100 CELL DIFF
[2017-01-17 16:28] LABS: ANISOCYTOSIS 2+
[2017-01-17 16:29] LABS: OVALOCYTES 1+; SCHISTOCYTES 1+; SPHEROCYTES 1+
[2017-01-17 16:30] LABS: LARGE PLATELETS 1+; VERIFY COUNTS? YES
[2017-01-17] MEDS ORDERED: PRED50TA PO (21:29)
== END 2017-01-17 14:40 | disposition home or self-care (01) | DRG 545 ==
LOC: ED 15:44 → EDIP 15:54 → 5SO 20:02
PROVIDERS: ADMIT Internal Medicine; ATTEND Internal Medicine
DX: M32.14 Glomerular disease in systemic lupus erythematosus (principal); E43 Unspecified severe protein-calorie malnutrition; N17.9 Acute kidney failure, unspecified; D61.818 Other pancytopenia; E87.2 Acidosis; F11.20 Opioid dependence, uncomplicated; I13.0 Hypertensive heart and chronic kidney disease with heart failure and stage 1 through stage 4 chronic kidney disease, or unspecified chronic kidney disease; I50.22 Chronic systolic (congestive) heart failure; Z68.1 Body mass index [BMI] 19.9 or less, adult; B25.9 Cytomegaloviral disease, unspecified; I38 Endocarditis, valve unspecified; E87.1 Hypo-osmolality and hyponatremia; D63.8 Anemia in other chronic diseases classified elsewhere; E53.8 Deficiency of other specified B group vitamins; E83.42 Hypomagnesemia; F32.9 Major depressive disorder, single episode, unspecified; E87.6 Hypokalemia; H66.90 Otitis media, unspecified, unspecified ear; H69.90 Unspecified Eustachian tube disorder, unspecified ear; G40.909 Epilepsy, unspecified, not intractable, without status epilepticus; I48.0 Paroxysmal atrial fibrillation; L30.9 Dermatitis, unspecified; N18.9 Chronic kidney disease, unspecified; Z80.42 Family history of malignant neoplasm of prostate; I25.2 Old myocardial infarction; Z85.41 Personal history of malignant neoplasm of cervix uteri; Z91.19 Patient's noncompliance with other medical treatment and regimen; Z88.3 Allergy status to other anti-infective agents; Z91.040 Latex allergy status; Z88.1 Allergy status to other antibiotic agents
CPT/HCPCS: 36415; 71010; 71275; 74176; 80048; 80053; 81001; 82607; 83605; 83690; 83735; 83880; 84100; 84145; 84443; 84484; 85025; 85610; 85651; 86140; 87040; 87324; 93005; 93306; 93970; 96361; 96374; J0696; J2405; J2930; Q0162; Q9967; J2270; J3420; J3475; J7030; J7040; J7512; J7517

== ENCOUNTER 2017-01-19 13:28 | Inpatient (IN) | payer MEDICAID ==
[~2017-01-19] VITALS: Ht 157.5 cm; Wt 40.1 kg
[~2017-01-19 13:28] MED LIST changes: +ASPI325T4 PO; +CIPR250T2 PO; +CYAN10005 PO; +FAMO20TA7 PO; +HYDR-3240 PO; +HYDR200T PO; +SACC250C PO
[2017-01-19] MEDS ORDERED: ONDANSETRON 2MG/ML, 2ML IVPush ONE (15:30)
[2017-01-19 15:52] LABS: BLOOD UREA NITROGEN 30 mg/dL (7-18)
[2017-01-19 15:53] LABS: ASPARTATE AMINO TRANSFERASE 8 U/L (15-37)
[2017-01-19] MEDS ORDERED: ONDANSETRON 2MG/ML, 2ML ONE (15:57)
[2017-01-19] MEDS ORDERED: MORPHINE SULFATE 4 MG/ML, 1ML ONE (15:57)
[2017-01-19 16:22] LABS: DIFF TOTAL CELLS COUNTED 100 CELL DIFF
[2017-01-19 16:25] LABS: ANISOCYTOSIS 1+; OVALOCYTES 1+
[2017-01-19 16:26] LABS: POIKILOCYTOSIS 1+; SPHEROCYTES 1+
[2017-01-19 16:27] LABS: SCHISTOCYTES 1+
[2017-01-19 16:29] LABS: VERIFY COUNTS? YES
[2017-01-19] MEDS: MORPHINE SULFATE 4 MG/ML, 1ML IVPush PRN ×2 (16:42→18:04)
[2017-01-19 17:42] LABS: HCG UR OBC PASS
[2017-01-19 18:05] VITALS: BP 116/82
[2017-01-19 18:29] VITALS: BP 114/73
[2017-01-19 18:57] VITALS: BP 118/78
[2017-01-19] MEDS ORDERED: METRONIDAZOLE PMX 500MG/100ML 100 ML ONE (19:37)
[2017-01-19] MEDS ORDERED: SACC250C PO (19:53)
[2017-01-19] MEDS ORDERED: PLEASE ENTER WEIGHT MC SCH (20:00)
[2017-01-19] MEDS ORDERED: METRONIDAZOLE PMX 500MG/100ML 100 ML IV ONE (20:00)
[2017-01-19 20:07] VITALS: BP 121/75
[2017-01-19 21:00] VITALS: BP 115/62
[2017-01-19] MEDS ORDERED: METRONIDAZOLE PMX 500MG/100ML 100 ML IV SCH (21:00)
[2017-01-19] MEDS ORDERED: ACETAMINOPHEN 325 MG TABLET PO PRN (21:00)
[2017-01-19] MEDS: VANCOMYCIN 50 MG/ML ORAL SUSP PO SCH ×3 (21:00→22:43)
[2017-01-19] MEDS ORDERED: PROMETHAZINE 25 MG/ML, 1ML IM PRN (21:00)
[2017-01-19] MEDS ORDERED: PHARMACY MAY ADJ FOR RENAL FX MC PRN (21:00)
[2017-01-19] MEDS: LACTOBACILLUS CHEW TABLET PO SCH (21:31)
[2017-01-19] MEDS: SODIUM CHLORIDE 0.9% 1,000 ML IV SCH (21:31)
[2017-01-19] MEDS: PANTOPRAZOLE 40 MG IV IVPush SCH (21:31)
[2017-01-19] MEDS: morphine SULFATE 10 MG/ML, 1ML IVPush PRN (22:42)
[2017-01-20 00:17] VITALS: BP 117/58
[2017-01-20] MEDS: VANCOMYCIN 50 MG/ML ORAL SUSP PO SCH ×5 (03:29→21:55)
[2017-01-20] MEDS: METRONIDAZOLE PMX 500MG/100ML 100 ML IV SCH ×3 (03:29→19:31)
[2017-01-20] MEDS: morphine SULFATE 10 MG/ML, 1ML IVPush PRN ×3 (03:29→19:46)
[2017-01-20 03:36] LABS: ASPARTATE AMINO TRANSFERASE 10 U/L (15-37); BLOOD UREA NITROGEN 27 mg/dL (7-18)
[2017-01-20 04:55] LABS: DIFF TOTAL CELLS COUNTED 100 CELL DIFF
[2017-01-20 05:01] LABS: ANISOCYTOSIS 1+
[2017-01-20 05:02] LABS: OVALOCYTES 1+; POIKILOCYTOSIS 1+; SPHEROCYTES 1+
[2017-01-20 05:05] LABS: LARGE PLATELETS 1+
[2017-01-20 05:06] LABS: VERIFY COUNTS? YES
[2017-01-20] MEDS: LACTOBACILLUS CHEW TABLET PO SCH ×4 (06:00→21:55)
[2017-01-20 07:28] VITALS: BP 118/62
[2017-01-20] MEDS: PANTOPRAZOLE 40 MG IV IVPush SCH (07:58)
[2017-01-20] MEDS: SODIUM CHLORIDE 0.9% 1,000 ML IV SCH ×2 (07:58→23:14)
[2017-01-20] MEDS: CYANOCOBALAMIN 1,000 MCG TABLET PO SCH (07:59)
[2017-01-20] MEDS: SODIUM BICARBONATE 650 MG TABLET PO SCH ×3 (08:20→17:00)
[2017-01-20] MEDS: HYDROcodone/APAP 5/325 TABLET PO PRN ×2 (10:08→15:19)
[2017-01-20 13:15] VITALS: BP 101/56
[2017-01-20 19:05] VITALS: BP 106/58
[2017-01-21] MEDS: morphine SULFATE 10 MG/ML, 1ML IVPush PRN ×4 (00:02→19:56)
[2017-01-21] MEDS: VANCOMYCIN 50 MG/ML ORAL SUSP PO SCH ×4 (03:00→19:56)
[2017-01-21] MEDS: METRONIDAZOLE PMX 500MG/100ML 100 ML IV SCH (03:36)
[2017-01-21 04:44] VITALS: BP 114/66
[2017-01-21 05:47] LABS: BLOOD UREA NITROGEN 26 mg/dL (7-18)
[2017-01-21] MEDS: LACTOBACILLUS CHEW TABLET PO SCH ×4 (06:00→19:56)
[2017-01-21 06:18] LABS: DIFF TOTAL CELLS COUNTED 100 CELL DIFF
[2017-01-21 06:27] LABS: ANISOCYTOSIS 1+; OVALOCYTES 1+; POIKILOCYTOSIS 1+; SPHEROCYTES 1+; VERIFY COUNTS? YES
[2017-01-21 06:30] LABS: SCHISTOCYTES 1+
[2017-01-21 08:30] VITALS: BP 132/80
[2017-01-21] MEDS ORDERED: PANTOPRAZOLE 40 MG IV IVPush SCH (09:00)
[2017-01-21] MEDS: SODIUM BICARBONATE 650 MG TABLET PO SCH ×3 (09:16→16:55)
[2017-01-21] MEDS: CYANOCOBALAMIN 1,000 MCG TABLET PO SCH (09:16)
[2017-01-21] MEDS: HYDROcodone/APAP 5/325 TABLET PO PRN (10:50)
[2017-01-21] MEDS: SODIUM CHLORIDE 0.9% 1,000 ML IV SCH (13:05)
[2017-01-21 13:12] VITALS: BP 100/64
[2017-01-21] MEDS: ONDANSETRON 2MG/ML, 2ML IVPush PRN (15:30)
[2017-01-21 19:11] VITALS: BP 104/68
[2017-01-21] MEDS: MORPHINE SULFATE 4 MG/ML, 1ML IVPush PRN (23:13)
[2017-01-22 01:12] VITALS: BP 97/62
[2017-01-22] MEDS: SODIUM CHLORIDE 0.9% 1,000 ML IV SCH ×2 (02:07→15:26)
[2017-01-22] MEDS: MORPHINE SULFATE 4 MG/ML, 1ML IVPush PRN (02:29)
[2017-01-22] MEDS: ONDANSETRON 2MG/ML, 2ML IVPush PRN (02:48)
[2017-01-22] MEDS: VANCOMYCIN 50 MG/ML ORAL SUSP PO SCH ×3 (03:00→15:37)
[2017-01-22 03:17] LABS: BLOOD UREA NITROGEN 25 mg/dL (7-18)
[2017-01-22] MEDS: LACTOBACILLUS CHEW TABLET PO SCH ×2 (06:00→13:33)
[2017-01-22 06:35] VITALS: BP 123/65
[2017-01-22] MEDS ORDERED: PANTOPROZOLE 40MG TABLET PO SCH (07:30)
[2017-01-22] MEDS: CYANOCOBALAMIN 1,000 MCG TABLET PO SCH (09:13)
[2017-01-22] MEDS: SODIUM BICARBONATE 650 MG TABLET PO SCH ×2 (09:13→13:33)
[2017-01-22] MEDS: HYDROcodone/APAP 5/325 TABLET PO PRN ×2 (09:14→13:33)
[2017-01-22] MEDS ORDERED: ACID1TAB7 PO (09:25)
[2017-01-22] MEDS ORDERED: VANC1VIA3 PO (09:25)
[2017-01-22 12:54] VITALS: BP 121/67
== END 2017-01-22 16:00 | disposition home or self-care (01) | DRG 371 ==
LOC: ED 15:07 → EDIP 19:29 → 3NE 20:48
PROVIDERS: ADMIT Internal Medicine; ATTEND Internal Medicine
PROC: 30233N1 Transfusion of Nonautologous Red Blood Cells into Peripheral Vein, Percutaneous Approach (ICD-10-PCS; principal; 2017-01-19)
DX: A04.7 Enterocolitis due to Clostridium difficile (principal); E43 Unspecified severe protein-calorie malnutrition; D61.818 Other pancytopenia; D62 Acute posthemorrhagic anemia; E87.2 Acidosis; F11.20 Opioid dependence, uncomplicated; I50.22 Chronic systolic (congestive) heart failure; D63.8 Anemia in other chronic diseases classified elsewhere; D69.59 Other secondary thrombocytopenia; E53.8 Deficiency of other specified B group vitamins; T50.905A Adverse effect of unspecified drugs, medicaments and biological substances, initial encounter; R59.1 Generalized enlarged lymph nodes; F32.9 Major depressive disorder, single episode, unspecified; I48.0 Paroxysmal atrial fibrillation; I25.2 Old myocardial infarction; M32.14 Glomerular disease in systemic lupus erythematosus; N18.3 Chronic kidney disease, stage 3 (moderate); Z80.42 Family history of malignant neoplasm of prostate; Z91.19 Patient's noncompliance with other medical treatment and regimen; Z87.440 Personal history of urinary (tract) infections; Y92.89 Other specified places as the place of occurrence of the external cause; Z88.0 Allergy status to penicillin; Z91.040 Latex allergy status
CPT/HCPCS: 36415; 36430; 80048; 80053; 81001; 81025; 82274; 83735; 85014; 85018; 85025; 85610; 86850; 86900; 86923; 87324; 87493; 93005; 96365; 96375; 96376; J2405; J3370; C9113; J2270; J7030; J7512; J7517; P9040

== ENCOUNTER 2017-02-20 00:54 | Emergency (ER) | payer MEDICAID ==
[~2017-02-20] VITALS: Ht 157.5 cm; Wt 55.0 kg
[~2017-02-20 00:54] MED LIST changes: +ACID1TAB7 PO; +VANC1VIA3 PO
[2017-02-20] MEDS ORDERED: MORPHINE SULFATE 4 MG/ML, 1ML ONE (01:36)
[2017-02-20] MEDS ORDERED: MORPHINE SULFATE 4 MG/ML, 1ML IVPush PRN (02:00)
[2017-02-20] MEDS ORDERED: DIPHENHYDRAMINE 50 MG/ML, 1ML ONE (02:29)
[2017-02-20 02:48] VITALS: BP 114/61
== END 2017-02-20 02:51 | disposition home or self-care (01) ==
LOC: ED 02:45
DX: B02.29 Other postherpetic nervous system involvement (principal); E87.1 Hypo-osmolality and hyponatremia; E87.6 Hypokalemia
CPT/HCPCS: 96374

== ENCOUNTER 2017-02-21 22:19 | Emergency (ER) | payer MEDICAID ==
[~2017-02-21] VITALS: Ht 157.5 cm; Wt 60.0 kg
[2017-02-21] MEDS ORDERED: OXYcodone/APAP 5/325MG TABLET ONE (22:49)
[2017-02-21 23:08] VITALS: BP 110/74
[2017-02-22] MEDS ORDERED: OXYcodone/APAP 5/325MG TABLET PO ONE
== END 2017-02-21 23:12 | disposition home or self-care (01) ==
LOC: ED 22:53
DX: Z76.0 Encounter for issue of repeat prescription (principal); B02.29 Other postherpetic nervous system involvement; E87.1 Hypo-osmolality and hyponatremia; I48.91 Unspecified atrial fibrillation; E87.6 Hypokalemia
CPT/HCPCS: 99283

== ENCOUNTER 2017-03-08 15:10 | Emergency (ER) | payer MEDICAID ==
[~2017-03-08] VITALS: Ht 157.5 cm; Wt 50.0 kg
[2017-03-08] MEDS ORDERED: HYDROcodone/APAP 5/325 TABLET ONE (15:29)
[2017-03-08] MEDS ORDERED: HYDROcodone/APAP 5/325 TABLET PO ONE (15:30)
[2017-03-08 17:07] VITALS: BP 117/78
== END 2017-03-08 17:21 | disposition home or self-care (01) ==
LOC: ED 15:39
DX: S89.91XA Unspecified injury of right lower leg, initial encounter (principal); I48.91 Unspecified atrial fibrillation; Z88.1 Allergy status to other antibiotic agents; Z91.040 Latex allergy status; X58.XXXA Exposure to other specified factors, initial encounter; Y93.89 Activity, other specified; Y92.89 Other specified places as the place of occurrence of the external cause; Y99.8 Other external cause status
CPT/HCPCS: 99284

== ENCOUNTER 2017-03-14 10:45 | Emergency (ER) | payer MEDICAID ==
[~2017-03-14] VITALS: Ht 157.5 cm; Wt 55.6 kg
[2017-03-14 10:47] VITALS: BP 131/83
== END 2017-03-14 10:57 | disposition left against medical advice (07) ==
LOC: ED 10:51
DX: Z53.21 Procedure and treatment not carried out due to patient leaving prior to being seen by health care provider (principal)

== ENCOUNTER 2017-10-29 01:55 | Emergency (ER) | payer MEDICAID ==
[~2017-10-29] VITALS: Ht 162.6 cm; Wt 65.0 kg
[~2017-10-29 01:55] MED LIST changes: +ASPI325T17 PO; -ASPI325T4 PO; +AZIT500T5 PO; -AZIT500T77 PO; +DOCU-131 PO; -DOCU-30 PO; +FERR325T18 PO; -FERR325T20 PO; -HYDR-3138 PO; +HYDR-3237 PO; -HYDR200T PO; +HYDR200T72 PO; +IBUP-1484 PO; -IBUP200T5 PO; -OXYC-223 PO; +OXYC-306 PO; -OXYC10TA32 PO; +OXYC10TA47 PO; -SACC250C PO; +SACC250C4 PO; -SILV25CR4 TP; +SILV25CR6 TP
[2017-10-29] MEDS ORDERED: ONDANSETRON 2MG/ML, 2ML IVPush ONE ×2 (02:30→05:00)
[2017-10-29] MEDS ORDERED: SODIUM CHLORIDE 0.9% 1,000ML IVBOLUS ONE ×2 (02:30→03:30)
[2017-10-29] MEDS ORDERED: SODIUM CHLORIDE FLUSH 10ML SYR IVF ONE (02:30)
[2017-10-29 02:35] LABS: BASOPHILS # (AUTO) 0.01 x10^3/uL (0-0.1); BASOPHILS % (AUTO) 0 % (0-1); EOSINOPHILS # (AUTO) 0.02 x10^3/uL (0-0.4); EOSINOPHILS % (AUTO) 0 % (1-7); LYMPHOCYTES # (AUTO) 1.29 x10^3/uL (1-3.4); LYMPHOCYTES % (AUTO) 25 % (22-44); MD NO; MEAN CORPUSCULAR HEMOGLOBIN 26.4 pg (27.0-34.8); MEAN CORPUSCULAR VOLUME 82.4 fL (80-100); MEAN PLATELET VOLUME 7.7 fL (7.4-10.4); MONOCYTES # (AUTO) 0.59 x10^3/uL (0.2-0.8); MONOCYTES % (AUTO) 12 % (2-9); NEUTROPHILS # (AUTO) 3.19 x10^3/uL (1.8-6.8); NEUTROPHILS % (AUTO) 63 % (42-75); PLATELET COUNT 235 x10^3/uL (130-400); RED BLOOD COUNT 3.48 x10^6/uL (3.82-5.3); RED CELL DISTRIBUTION WIDTH 13.5 % (9.6-15.2)
[2017-10-29 02:48] LABS: ALANINE AMINOTRANSFERASE 12 U/L (12-78); ALBUMIN 3.7 g/dL (3.4-5.0); ANION GAP 8 mmol/L (5-15); CALCIUM 9.4 mg/dL (8.5-10.1); CHLORIDE 111 mmol/L (98-107); CREATININE 1.88 mg/dL (0.55-1.02)
[2017-10-29 02:50] LABS: ALKALINE PHOSPHATASE 42 U/L (45-117); BILIRUBIN,TOTAL 0.2 mg/dL (0.2-1.0); TOTAL PROTEIN 7.2 g/dL (6.4-8.2)
[2017-10-29 03:12] LABS: MICROSCOPIC INDICATED
[2017-10-29 03:14] LABS: HCG UR SG 1.029 (1.003-1.030)
[2017-10-29] MEDS ORDERED: ONDANSETRON 2MG/ML, 2ML ONE ×2 (03:37→04:35)
[2017-10-29] MEDS ORDERED: MORPHINE SULFATE 4 MG/ML, 1ML ONE ×2 (03:38→04:12)
[2017-10-29 03:41] LABS: CULTURE INDICATED? YES
[2017-10-29] MEDS: MORPHINE SULFATE 4 MG/ML, 1ML IVPush PRN ×2 (03:41→04:14)
[2017-10-29] MEDS ORDERED: HYDROcodone/APAP 5/325 TABLET ONE (04:35)
[2017-10-29 04:42] VITALS: BP 110/64
[2017-10-29] MEDS ORDERED: HYDROcodone/APAP 5/325 TABLET PO ONE (05:00)
== END 2017-10-29 05:14 | disposition home or self-care (01) ==
LOC: ED 05:12
DX: R10.84 Generalized abdominal pain (principal); R11.2 Nausea with vomiting, unspecified; E86.0 Dehydration; I10 Essential (primary) hypertension; I48.91 Unspecified atrial fibrillation
CPT/HCPCS: 36415; 80053; 81001; 81025; 83690; 85025; 87086; 96361; 96374; 96375; 96376; 99284; J2405; J7030

== ENCOUNTER 2017-11-07 02:48 | Emergency (ER) | payer MEDICAID ==
[~2017-11-07] VITALS: Ht 157.5 cm; Wt 65.0 kg
[2017-11-07 03:28] LABS: HCG UR SG 1.027 (1.003-1.030)
[2017-11-07] MEDS ORDERED: ONDANSETRON 2MG/ML, 2ML IVPush ONE (03:30)
[2017-11-07] MEDS ORDERED: MORPHINE SULFATE 4 MG/ML, 1ML ONE ×2 (03:31→04:32)
[2017-11-07] MEDS ORDERED: ONDANSETRON 2MG/ML, 2ML ONE (03:31)
[2017-11-07 03:33] LABS: CULTURE INDICATED? YES; MICROSCOPIC INDICATED
[2017-11-07] MEDS: MORPHINE SULFATE 4 MG/ML, 1ML IVPush PRN ×2 (03:41→04:43)
[2017-11-07 03:58] LABS: ALANINE AMINOTRANSFERASE 12 U/L (12-78); ALBUMIN 3.7 g/dL (3.4-5.0); ANION GAP 10 mmol/L (5-15); CALCIUM 9.8 mg/dL (8.5-10.1); CHLORIDE 108 mmol/L (98-107); CREATININE 1.71 mg/dL (0.55-1.02)
[2017-11-07 04:01] LABS: ALKALINE PHOSPHATASE 45 U/L (45-117); BILIRUBIN,TOTAL 0.3 mg/dL (0.2-1.0); TOTAL PROTEIN 7.5 g/dL (6.4-8.2)
[2017-11-07 04:22] LABS: BASOPHILS # (AUTO) 0.01 x10^3/uL (0-0.1); BASOPHILS % (AUTO) 0 % (0-1); EOSINOPHILS % (AUTO) 0 % (1-7); LYMPHOCYTES # (AUTO) 1.05 x10^3/uL (1-3.4); LYMPHOCYTES % (AUTO) 19 % (22-44); MD SCAN; MEAN CORPUSCULAR HEMOGLOBIN 27.1 pg (27.0-34.8); MEAN CORPUSCULAR VOLUME 82.2 fL (80-100); MEAN PLATELET VOLUME 8.2 fL (7.4-10.4); MONOCYTES # (AUTO) 0.62 x10^3/uL (0.2-0.8); MONOCYTES % (AUTO) 11 % (2-9); NEUTROPHILS # (AUTO) 3.78 x10^3/uL (1.8-6.8); NEUTROPHILS % (AUTO) 69 % (42-75); PLATELET COUNT 220 x10^3/uL (130-400); RED BLOOD COUNT 3.09 x10^6/uL (3.82-5.3); RED CELL DISTRIBUTION WIDTH 13.4 % (9.6-15.2)
[2017-11-07 04:43] VITALS: BP 112/70
== END 2017-11-07 05:25 | disposition home or self-care (01) ==
LOC: ED 05:15
DX: R10.84 Generalized abdominal pain (principal); R11.0 Nausea; I10 Essential (primary) hypertension; I48.91 Unspecified atrial fibrillation; E87.6 Hypokalemia; E87.1 Hypo-osmolality and hyponatremia
CPT/HCPCS: 36415; 74176; 80053; 81001; 81025; 83690; 85025; 87086; 96374; 96375; 96376; 99285; J2405

== ENCOUNTER 2017-11-12 03:30 | Emergency (ER) | payer MEDICAID ==
[~2017-11-12] VITALS: Ht 157.5 cm; Wt 64.5 kg
[2017-11-12] MEDS ORDERED: ONDANSETRON ODT 8 MG PO ONE (04:00)
[2017-11-12] MEDS ORDERED: ONDANSETRON ODT 8 MG ONE (04:02)
[2017-11-12] MEDS ORDERED: HYDROcodone/APAP 5/325 TABLET ONE (04:13)
[2017-11-12] MEDS ORDERED: HYDROcodone/APAP 5/325 TABLET PO ONE (04:30)
[2017-11-12 04:32] LABS: BASOPHILS # (AUTO) 0.02 x10^3/uL (0-0.1); BASOPHILS % (AUTO) 0 % (0-1); EOSINOPHILS # (AUTO) 0.03 x10^3/uL (0-0.4); EOSINOPHILS % (AUTO) 1 % (1-7); LYMPHOCYTES # (AUTO) 1.03 x10^3/uL (1-3.4); LYMPHOCYTES % (AUTO) 25 % (22-44); MD NO; MEAN CORPUSCULAR HEMOGLOBIN 26.9 pg (27.0-34.8); MEAN CORPUSCULAR HGB CONC 33.2 g/dL (32.4-35.8); MEAN CORPUSCULAR VOLUME 81.1 fL (80-100); MEAN PLATELET VOLUME 8.2 fL (7.4-10.4); MONOCYTES # (AUTO) 0.64 x10^3/uL (0.2-0.8); MONOCYTES % (AUTO) 15 % (2-9); NEUTROPHILS # (AUTO) 2.41 x10^3/uL (1.8-6.8); NEUTROPHILS % (AUTO) 59 % (42-75); PLATELET COUNT 255 x10^3/uL (130-400); RED BLOOD COUNT 3.49 x10^6/uL (3.82-5.3); RED CELL DISTRIBUTION WIDTH 13.1 % (9.6-15.2)
[2017-11-12 04:43] LABS: ANION GAP 13 mmol/L (5-15); CALCIUM 9.4 mg/dL (8.5-10.1); CHLORIDE 104 mmol/L (98-107); CREATININE 1.72 mg/dL (0.55-1.02)
[2017-11-12 04:44] LABS: ALANINE AMINOTRANSFERASE 10 U/L (12-78); ALBUMIN 3.5 g/dL (3.4-5.0)
[2017-11-12 04:46] LABS: ALKALINE PHOSPHATASE 49 U/L (45-117); BILIRUBIN,TOTAL 0.3 mg/dL (0.2-1.0); TOTAL PROTEIN 7.2 g/dL (6.4-8.2)
[2017-11-12 05:20] VITALS: BP 105/67
== END 2017-11-12 05:30 | disposition home or self-care (01) ==
LOC: ED 05:29
DX: R10.84 Generalized abdominal pain (principal); R11.2 Nausea with vomiting, unspecified; I12.9 Hypertensive chronic kidney disease with stage 1 through stage 4 chronic kidney disease, or unspecified chronic kidney disease; N18.3 Chronic kidney disease, stage 3 (moderate)
CPT/HCPCS: 36415; 80053; 83690; 85025; 99284; Q0162

== ENCOUNTER 2018-03-26 01:14 | Emergency (ER) | payer MEDICAID ==
[~2018-03-26] VITALS: Ht 157.5 cm; Wt 54.5 kg
[~2018-03-26 01:14] MED LIST changes: +CHOL400T2 PO; +PROM12.55 PO; +TRAZ-136 PO; -TRAZ50TA18 PO
[2018-03-26 02:10] VITALS: BP 95/64
[2018-03-26 02:27] LABS: MEAN CORPUSCULAR HEMOGLOBIN 25.6 pg (27.0-34.8); MEAN CORPUSCULAR HGB CONC 33.2 g/dL (32.4-35.8); MEAN PLATELET VOLUME 8.5 fL (7.4-10.4); PLATELET COUNT 241 x10^3/uL (130-400); RED BLOOD COUNT 2.88 x10^6/uL (3.82-5.3)
[2018-03-26] MEDS ORDERED: HYDROcodone/APAP 5/325 TABLET PO ONE (02:30)
[2018-03-26 02:39] LABS: ALBUMIN 3.8 g/dL (3.4-5.0); ANION GAP 8 mmol/L (5-15); CHLORIDE 109 mmol/L (98-107); CREATININE 1.42 mg/dL (0.55-1.02)
[2018-03-26 03:13] LABS: BASOPHILS # (AUTO) 0.02 x10^3/uL (0-0.1); BASOPHILS % (AUTO) 1 % (0-1); EOSINOPHILS # (AUTO) 0.02 x10^3/uL (0-0.4); EOSINOPHILS % (AUTO) 1 % (1-7); LYMPHOCYTES # (AUTO) 1.05 x10^3/uL (1-3.4); LYMPHOCYTES % (AUTO) 34 % (22-44); MD SCAN; MONOCYTES # (AUTO) 0.41 x10^3/uL (0.2-0.8); MONOCYTES % (AUTO) 13 % (2-9); NEUTROPHILS # (AUTO) 1.57 x10^3/uL (1.8-6.8); NEUTROPHILS % (AUTO) 51 % (42-75)
== END 2018-03-26 03:48 | disposition home or self-care (01) ==
LOC: ED 03:22
DX: D64.89 Other specified anemias (principal); I12.9 Hypertensive chronic kidney disease with stage 1 through stage 4 chronic kidney disease, or unspecified chronic kidney disease; N18.3 Chronic kidney disease, stage 3 (moderate); I25.2 Old myocardial infarction; I48.91 Unspecified atrial fibrillation
CPT/HCPCS: 36415; 80048; 82040; 84703; 85025; 99284

== ENCOUNTER 2018-04-14 05:29 | Emergency (ER) | payer MEDICAID ==
[~2018-04-14] VITALS: Ht 157.5 cm; Wt 52.0 kg
[2018-04-14 05:34] VITALS: BP 104/68
== END 2018-04-14 06:07 | disposition home or self-care (01) ==
LOC: ED 06:00
DX: B00.1 Herpesviral vesicular dermatitis (principal); I48.91 Unspecified atrial fibrillation; I10 Essential (primary) hypertension; I25.2 Old myocardial infarction
CPT/HCPCS: 99283

== ENCOUNTER 2018-04-25 08:50 | Emergency (ER) | payer MEDICAID ==
[~2018-04-25] VITALS: Ht 157.5 cm; Wt 57.0 kg
[~2018-04-25 08:50] MED LIST changes: -AMLO5TAB2 PO; +AMLO5TAB7 PO
[2018-04-25 09:02] VITALS: BP 92/56
[2018-04-25] MEDS ORDERED: ACETAMINOPHEN 325 MG TABLET ONE (09:10)
[2018-04-25] MEDS ORDERED: ACETAMINOPHEN 325 MG TABLET PO ONE (09:30)
== END 2018-04-25 09:28 | disposition home or self-care (01) ==
LOC: ED 09:25
DX: K08.89 Other specified disorders of teeth and supporting structures (principal); M32.9 Systemic lupus erythematosus, unspecified; I12.9 Hypertensive chronic kidney disease with stage 1 through stage 4 chronic kidney disease, or unspecified chronic kidney disease; N18.3 Chronic kidney disease, stage 3 (moderate); I25.2 Old myocardial infarction; I48.91 Unspecified atrial fibrillation
CPT/HCPCS: 99283

== ENCOUNTER 2018-06-02 04:30 | Emergency (ER) | payer MEDICAID ==
[~2018-06-02] VITALS: Ht 157.5 cm; Wt 54.5 kg
[2018-06-02 04:31] VITALS: BP 97/68
[2018-06-02] MEDS ORDERED: OXYcodone/APAP 5/325MG TABLET PO ONE (05:00)
[2018-06-02] MEDS ORDERED: OXYcodone/APAP 5/325MG TABLET ONE (05:22)
[2018-06-02 05:48] LABS: ALBUMIN 3.9 g/dL (3.4-5.0); ANION GAP 10 mmol/L (5-15); CHLORIDE 110 mmol/L (98-107); CREATININE 1.58 mg/dL (0.55-1.02)
[2018-06-02 06:14] LABS: HCG UR SG 1.006 (1.003-1.030); MICROSCOPIC NOT IND
[2018-06-02 06:16] LABS: CULTURE INDICATED? NO
[2018-06-02 06:33] LABS: BASOPHILS # (AUTO) 0.06 x10^3/uL (0-0.1); BASOPHILS % (AUTO) 1 % (0-1); EOSINOPHILS # (AUTO) 0.04 x10^3/uL (0-0.4); EOSINOPHILS % (AUTO) 1 % (1-7); LYMPHOCYTES # (AUTO) 1.67 x10^3/uL (1-3.4); LYMPHOCYTES % (AUTO) 38 % (22-44); MD SCAN; MEAN CORPUSCULAR HEMOGLOBIN 25.3 pg (27.0-34.8); MEAN CORPUSCULAR HGB CONC 32.4 g/dL (32.4-35.8); MEAN CORPUSCULAR VOLUME 78.1 fL (80-100); MEAN PLATELET VOLUME 8.8 fL (7.4-10.4); MONOCYTES # (AUTO) 0.41 x10^3/uL (0.2-0.8); MONOCYTES % (AUTO) 9 % (2-9); NEUTROPHILS # (AUTO) 2.25 x10^3/uL (1.8-6.8); NEUTROPHILS % (AUTO) 51 % (42-75); PLATELET COUNT 275 x10^3/uL (130-400); RED BLOOD COUNT 3.19 x10^6/uL (3.82-5.3); RED CELL DISTRIBUTION WIDTH 14.8 % (9.6-15.2)
== END 2018-06-02 07:10 | disposition home or self-care (01) ==
LOC: ED 06:58
DX: N83.292 Other ovarian cyst, left side (principal); I12.9 Hypertensive chronic kidney disease with stage 1 through stage 4 chronic kidney disease, or unspecified chronic kidney disease; N18.3 Chronic kidney disease, stage 3 (moderate); I25.2 Old myocardial infarction; I48.91 Unspecified atrial fibrillation
CPT/HCPCS: 36415; 76830; 80048; 81003; 81025; 82040; 85025; 99285

== ENCOUNTER 2018-06-23 01:06 | Emergency (ER) | payer MEDICAID ==
[2018-06-23 01:39] LABS: BASOPHILS # (AUTO) 0.02 x10^3/uL (0-0.1); BASOPHILS % (AUTO) 1 % (0-1); EOSINOPHILS # (AUTO) 0.02 x10^3/uL (0-0.4); EOSINOPHILS % (AUTO) 1 % (1-7); LYMPHOCYTES # (AUTO) 1.36 x10^3/uL (1-3.4); LYMPHOCYTES % (AUTO) 38 % (22-44); MD NO; MEAN CORPUSCULAR HEMOGLOBIN 25.5 pg (27.0-34.8); MEAN CORPUSCULAR HGB CONC 32.5 g/dL (32.4-35.8); MEAN CORPUSCULAR VOLUME 78.5 fL (80-100); MEAN PLATELET VOLUME 8.4 fL (7.4-10.4); MONOCYTES # (AUTO) 0.39 x10^3/uL (0.2-0.8); MONOCYTES % (AUTO) 11 % (2-9); NEUTROPHILS # (AUTO) 1.81 x10^3/uL (1.8-6.8); NEUTROPHILS % (AUTO) 50 % (42-75); PLATELET COUNT 264 x10^3/uL (130-400); RED BLOOD COUNT 3.34 x10^6/uL (3.82-5.3); RED CELL DISTRIBUTION WIDTH 14.6 % (9.6-15.2)
[2018-06-23] MEDS ORDERED: MYCO500T3 PO (01:41)
[2018-06-23 01:42] VITALS: BP 102/66
[2018-06-23] MEDS ORDERED: ONDANSETRON 2MG/ML, 2ML ONE (01:46)
[2018-06-23] MEDS ORDERED: MORPHINE SULFATE 4 MG/ML, 1ML ONE ×2 (01:46→02:53)
[2018-06-23 01:51] LABS: ALANINE AMINOTRANSFERASE 18 U/L (12-78); ANION GAP 9 mmol/L (5-15); CALCIUM 8.4 mg/dL (8.5-10.1); CHLORIDE 109 mmol/L (98-107); CREATININE 1.64 mg/dL (0.55-1.02)
[2018-06-23 01:52] LABS: CULTURE INDICATED? YES; HCG UR SG 1.021 (1.003-1.030); MICROSCOPIC INDICATED
[2018-06-23 01:54] LABS: ALKALINE PHOSPHATASE 81 U/L (45-117); BILIRUBIN,TOTAL 0.2 mg/dL (0.2-1.0)
[2018-06-23] MEDS: MORPHINE SULFATE 4 MG/ML, 1ML IVPush PRN ×2 (01:56→02:56)
[2018-06-23] MEDS ORDERED: ONDANSETRON 2MG/ML, 2ML IVPush ONE (02:00)
== END 2018-06-23 03:17 | disposition home or self-care (01) ==
LOC: ED 01:53
DX: S39.012A Strain of muscle, fascia and tendon of lower back, initial encounter (principal); M32.9 Systemic lupus erythematosus, unspecified; I12.9 Hypertensive chronic kidney disease with stage 1 through stage 4 chronic kidney disease, or unspecified chronic kidney disease; N18.3 Chronic kidney disease, stage 3 (moderate); N17.9 Acute kidney failure, unspecified; I25.2 Old myocardial infarction; I48.91 Unspecified atrial fibrillation; X58.XXXA Exposure to other specified factors, initial encounter; Y93.89 Activity, other specified; Y92.89 Other specified places as the place of occurrence of the external cause; Y99.8 Other external cause status
CPT/HCPCS: 36415; 80053; 81001; 81025; 85025; 87086; 96374; 96375; 96376; 99284; J2405

== ENCOUNTER 2018-07-01 00:16 | Emergency (ER) | payer MEDICAID ==
[~2018-07-01] VITALS: Ht 157.5 cm; Wt 52.3 kg
[2018-07-01 00:21] VITALS: BP 103/71
[2018-07-01] MEDS ORDERED: HYDROcodone/APAP 5/325 TABLET PO ONE (00:30)
[2018-07-01] MEDS ORDERED: HYDROcodone/APAP 5/325 TABLET ONE (00:37)
== END 2018-07-01 01:30 | disposition home or self-care (01) ==
LOC: ED 00:21
DX: S82.224A Nondisplaced transverse fracture of shaft of right tibia, initial encounter for closed fracture (principal); W01.0XXA Fall on same level from slipping, tripping and stumbling without subsequent striking against object, initial encounter; Y93.89 Activity, other specified; Y99.8 Other external cause status; Y92.009 Unspecified place in unspecified non-institutional (private) residence as the place of occurrence of the external cause
CPT/HCPCS: 29505; 99283

== ENCOUNTER 2018-07-05 02:33 | Emergency (ER) | payer MEDICAID ==
[~2018-07-05] VITALS: Ht 157.5 cm; Wt 53.0 kg
[~2018-07-05 02:33] MED LIST changes: +AMLO-150 PO; -AMLO5TAB7 PO; -ASPI-621 PO; +ASPI81TA45 PO; -TRAZ-136 PO; +TRAZ50TA66 PO
[2018-07-05] MEDS ORDERED: MORPHINE SULFATE 4 MG/ML, 1ML ONE (03:14)
[2018-07-05 03:30] VITALS: BP 108/70
[2018-07-05] MEDS ORDERED: MORPHINE SULFATE 4 MG/ML, 1ML IVPush PRN (03:30)
[2018-07-05 03:43] LABS: BASOPHILS # (AUTO) 0.05 x10^3/uL (0-0.1); BASOPHILS % (AUTO) 2 % (0-1); EOSINOPHILS # (AUTO) 0.02 x10^3/uL (0-0.4); EOSINOPHILS % (AUTO) 1 % (1-7); LYMPHOCYTES # (AUTO) 1.59 x10^3/uL (1-3.4); LYMPHOCYTES % (AUTO) 43 % (22-44); MD NO; MEAN CORPUSCULAR HGB CONC 33.1 g/dL (32.4-35.8); MEAN CORPUSCULAR VOLUME 78.7 fL (80-100); MEAN PLATELET VOLUME 8.7 fL (7.4-10.4); MONOCYTES # (AUTO) 0.46 x10^3/uL (0.2-0.8); MONOCYTES % (AUTO) 12 % (2-9); NEUTROPHILS # (AUTO) 1.58 x10^3/uL (1.8-6.8); NEUTROPHILS % (AUTO) 43 % (42-75); PLATELET COUNT 262 x10^3/uL (130-400); RED BLOOD COUNT 3.35 x10^6/uL (3.82-5.3); RED CELL DISTRIBUTION WIDTH 14.8 % (9.6-15.2)
[2018-07-05] MEDS ORDERED: PROMETHAZINE 25 MG/ML, 1ML ONE (03:45)
[2018-07-05 03:47] LABS: ALANINE AMINOTRANSFERASE 15 U/L (12-78); ALBUMIN 3.9 g/dL (3.4-5.0); ANION GAP 9 mmol/L (5-15); CALCIUM 8.9 mg/dL (8.5-10.1); CHLORIDE 109 mmol/L (98-107); CREATININE 1.48 mg/dL (0.55-1.02)
[2018-07-05 03:49] LABS: ALKALINE PHOSPHATASE 77 U/L (45-117); BILIRUBIN,TOTAL 0.2 mg/dL (0.2-1.0); TOTAL PROTEIN 7.9 g/dL (6.4-8.2)
[2018-07-05] MEDS ORDERED: PROMETHAZINE 25 MG/ML, 1ML IM ONE (04:00)
[2018-07-05] MEDS ORDERED: DIPHENHYDRAMINE 50 MG/ML, 1ML ONE (04:22)
== END 2018-07-05 05:25 | disposition home or self-care (01) ==
LOC: ED 02:56
DX: R10.9 Unspecified abdominal pain (principal); I48.91 Unspecified atrial fibrillation; N18.3 Chronic kidney disease, stage 3 (moderate)
CPT/HCPCS: 36415; 80053; 85025; 96374; 99283

== ENCOUNTER 2018-07-10 02:09 | Emergency (ER) | payer MEDICAID ==
[~2018-07-10] VITALS: Ht 157.5 cm; Wt 53.0 kg
[2018-07-10] MEDS ORDERED: HYDROCHLOROTH12.5 MG PO (02:23)
[2018-07-10] MEDS ORDERED: OXYcodone/APAP 5/325MG TABLET ONE (02:36)
[2018-07-10 02:56] LABS: BASOPHILS # (AUTO) 0.02 x10^3/uL (0-0.1); BASOPHILS % (AUTO) 1 % (0-1); EOSINOPHILS # (AUTO) 0.02 x10^3/uL (0-0.4); EOSINOPHILS % (AUTO) 1 % (1-7); LYMPHOCYTES # (AUTO) 1.33 x10^3/uL (1-3.4); LYMPHOCYTES % (AUTO) 38 % (22-44); MD NO; MEAN CORPUSCULAR HEMOGLOBIN 25.8 pg (27.0-34.8); MEAN CORPUSCULAR HGB CONC 32.9 g/dL (32.4-35.8); MEAN CORPUSCULAR VOLUME 78.2 fL (80-100); MEAN PLATELET VOLUME 8.4 fL (7.4-10.4); MONOCYTES # (AUTO) 0.41 x10^3/uL (0.2-0.8); MONOCYTES % (AUTO) 12 % (2-9); NEUTROPHILS # (AUTO) 1.72 x10^3/uL (1.8-6.8); NEUTROPHILS % (AUTO) 49 % (42-75); PLATELET COUNT 264 x10^3/uL (130-400); RED BLOOD COUNT 3.61 x10^6/uL (3.82-5.3); RED CELL DISTRIBUTION WIDTH 14.3 % (9.6-15.2)
[2018-07-10] MEDS ORDERED: OXYcodone/APAP 5/325MG TABLET PO ONE (03:00)
[2018-07-10 03:08] LABS: ALANINE AMINOTRANSFERASE 17 U/L (12-78); ALBUMIN 4.2 g/dL (3.4-5.0); ANION GAP 10 mmol/L (5-15); CALCIUM 9.1 mg/dL (8.5-10.1); CHLORIDE 108 mmol/L (98-107); CREATININE 1.55 mg/dL (0.55-1.02)
[2018-07-10 03:12] LABS: ALKALINE PHOSPHATASE 80 U/L (45-117); BILIRUBIN,TOTAL 0.2 mg/dL (0.2-1.0); TOTAL PROTEIN 8.2 g/dL (6.4-8.2); TROPONIN I < 0.015 ng/mL (0.000-0.045)
[2018-07-10 04:24] VITALS: BP 107/70
== END 2018-07-10 04:26 | disposition home or self-care (01) ==
LOC: ED 02:17
DX: R07.89 Other chest pain (principal); M94.0 Chondrocostal junction syndrome [Tietze]; I25.2 Old myocardial infarction; I10 Essential (primary) hypertension
CPT/HCPCS: 36415; 71045; 80053; 84484; 85025; 93005; 99284

== ENCOUNTER 2018-07-28 00:43 | Emergency (ER) | payer MEDICAID ==
[~2018-07-28] VITALS: Ht 157.5 cm; Wt 60.0 kg
[~2018-07-28 00:43] MED LIST changes: +HYDROCHLOROTH12.5 MG PO
[2018-07-28] MEDS ORDERED: KETOROLAC 30 MG/1 ML IM ONE (01:30)
[2018-07-28] MEDS ORDERED: PLEASE ENTER WEIGHT MC SCH (01:30)
[2018-07-28 01:32] LABS: ALANINE AMINOTRANSFERASE 12 U/L (12-78); ALBUMIN 3.8 g/dL (3.4-5.0); ANION GAP 8 mmol/L (5-15); CALCIUM 8.4 mg/dL (8.5-10.1); CHLORIDE 110 mmol/L (98-107)
[2018-07-28 01:35] LABS: ALKALINE PHOSPHATASE 69 U/L (45-117); BILIRUBIN,TOTAL 0.2 mg/dL (0.2-1.0); CREATININE 1.56 mg/dL (0.55-1.02); TOTAL PROTEIN 7.4 g/dL (6.4-8.2)
[2018-07-28 01:39] LABS: BASOPHILS # (AUTO) 0.02 x10^3/uL (0-0.1); BASOPHILS % (AUTO) 1 % (0-1); EOSINOPHILS # (AUTO) 0.05 x10^3/uL (0-0.4); EOSINOPHILS % (AUTO) 2 % (1-7); LYMPHOCYTES # (AUTO) 1.16 x10^3/uL (1-3.4); LYMPHOCYTES % (AUTO) 32 % (22-44); MD NO; MEAN CORPUSCULAR HEMOGLOBIN 26.2 pg (27.0-34.8); MEAN CORPUSCULAR HGB CONC 33.1 g/dL (32.4-35.8); MEAN PLATELET VOLUME 8.8 fL (7.4-10.4); MONOCYTES # (AUTO) 0.41 x10^3/uL (0.2-0.8); MONOCYTES % (AUTO) 12 % (2-9); NEUTROPHILS # (AUTO) 1.95 x10^3/uL (1.8-6.8); NEUTROPHILS % (AUTO) 54 % (42-75); PLATELET COUNT 250 x10^3/uL (130-400); RED BLOOD COUNT 3.23 x10^6/uL (3.82-5.3); RED CELL DISTRIBUTION WIDTH 14.1 % (9.6-15.2)
[2018-07-28 01:42] LABS: HCG UR SG 1.023 (1.003-1.030)
[2018-07-28 01:47] LABS: MICROSCOPIC INDICATED
[2018-07-28 01:48] LABS: CULTURE INDICATED? YES
[2018-07-28] MEDS ORDERED: OXYcodone/APAP 5/325MG TABLET ONE (01:58)
[2018-07-28] MEDS ORDERED: OXYcodone/APAP 5/325MG TABLET PO ONE (02:00)
[2018-07-28 02:16] VITALS: BP 91/57
== END 2018-07-28 02:22 | disposition home or self-care (01) ==
LOC: ED 01:14
DX: M54.5 Low back pain (principal); D53.9 Nutritional anemia, unspecified; I12.9 Hypertensive chronic kidney disease with stage 1 through stage 4 chronic kidney disease, or unspecified chronic kidney disease; N18.3 Chronic kidney disease, stage 3 (moderate); I25.2 Old myocardial infarction; I48.91 Unspecified atrial fibrillation; Z88.0 Allergy status to penicillin; Z91.040 Latex allergy status
CPT/HCPCS: 36415; 80053; 81001; 81025; 85025; 87086; 99283

== ENCOUNTER 2018-10-13 06:37 | Emergency (ER) | payer MEDICAID ==
[~2018-10-13] VITALS: Ht 157.5 cm; Wt 59.1 kg
--- NOTE | 2018-10-13 06:49 | NUR ---
BIB [facility] FOR C/O LOWER ABD PAIN AND CRAMPING AND VB X 2 DAYS. REPORTS HX OF MARGARITA AND STATES HASN'T HAD A PERIOD IN YEARS. HAD ONE 12 DAYS AGO AND NOW WITH "SPOTTING" OVER THE LAST 2 DAYS. C/O NAUSEA BUT DENIES VOMITING OR DIARRHEA. PT. PLACED ON CONTINUOUS PULSE OX AND B/P MONTIORS. CALL LIGHT IN REACH. WARM BLANKET PROVIDED. DR. NANCE IN TO EVAL PT. AND DISCUSS POC. REPORT TO GABY RIBERA TO ASSUME PT. CARE.
--- NOTE | 2018-10-13 07:17 | NUR ---
PT INSTRUCTED TO DO CLEAN CATCH URINE, IF BLOOD WAS NOTED FROM VAGINAL BLEED IN THE URINE PT WOULD HAVE TO BE STRAIGHT CATH'D. URINE APPEARED CLEAN AND SENT
[2018-10-13 07:30] LABS: MICROSCOPIC INDICATED
[2018-10-13 07:31] LABS: HCG UR SG 1.025 (1.003-1.030)
[2018-10-13 07:43] LABS: CULTURE INDICATED? NO
[2018-10-13 07:56] VITALS: BP 99/78
== END 2018-10-13 07:58 | disposition home or self-care (01) ==
LOC: ED 07:45
DX: N92.6 Irregular menstruation, unspecified (principal); I10 Essential (primary) hypertension; I25.2 Old myocardial infarction; I48.91 Unspecified atrial fibrillation
CPT/HCPCS: 81001; 81025; 99283

== ENCOUNTER 2018-10-18 03:58 | Emergency (ER) | payer MEDICAID ==
[~2018-10-18] VITALS: Ht 157.5 cm; Wt 51.9 kg
[2018-10-18 04:00] VITALS: BP 92/61
--- NOTE | 2018-10-18 04:59 | NUR ---
pt in gown in [facility]. pt provided warm blanket at this time.
[2018-10-18] MEDS ORDERED: HYDROcodone/APAP 5/325 TABLET PO ONE (05:00)
[2018-10-18] MEDS ORDERED: HYDROcodone/APAP 5/325 TABLET ONE (05:05)
--- NOTE | 2018-10-18 05:09 | NUR ---
pt medicated per mar for pain.
--- NOTE | 2018-10-18 06:38 | NUR ---
pt d/c with d/c summary and taxi voucher home. pt and partner to registration desk where taxi was phoned. pt ambulates with steady gait bur requesting wheelchair to lobby. Pt denies any other needs pertaining to this visit.
== END 2018-10-18 06:41 | disposition home or self-care (01) ==
LOC: ED 05:54
DX: S63.522A Sprain of radiocarpal joint of left wrist, initial encounter (principal); S63.642A Sprain of metacarpophalangeal joint of left thumb, initial encounter; I12.9 Hypertensive chronic kidney disease with stage 1 through stage 4 chronic kidney disease, or unspecified chronic kidney disease; N18.3 Chronic kidney disease, stage 3 (moderate); I48.91 Unspecified atrial fibrillation; I25.2 Old myocardial infarction; Z72.9 Problem related to lifestyle, unspecified; X58.XXXA Exposure to other specified factors, initial encounter; Y93.89 Activity, other specified; Y92.009 Unspecified place in unspecified non-institutional (private) residence as the place of occurrence of the external cause; Y99.8 Other external cause status
CPT/HCPCS: 29260; 99283

== ENCOUNTER 2018-12-05 03:27 | Emergency (ER) | payer MEDICAID ==
[~2018-12-05] VITALS: Ht 157.5 cm; Wt 51.9 kg
[~2018-12-05 03:27] MED LIST changes: -TRIA15CR3 TP; +TRIA15CR61 TP
[2018-12-05] MEDS ORDERED: PROMETHAZINE 25 MG/ML, 1ML ONE (03:49)
[2018-12-05] MEDS ORDERED: MECLIZINE CHEWABLE 25 MG TAB ONE (03:50)
[2018-12-05] MEDS ORDERED: KETOROLAC 30 MG/1 ML ONE (03:50)
[2018-12-05] MEDS ORDERED: MECLIZINE CHEWABLE 25 MG TAB PO ONE (04:00)
[2018-12-05] MEDS ORDERED: KETOROLAC 30 MG/1 ML IM ONE (04:00)
[2018-12-05] MEDS ORDERED: MECLIZINE 25 MG TABLET PO PRN (04:00)
[2018-12-05] MEDS ORDERED: PROMETHAZINE 25 MG/ML, 1ML IM ONE (04:00)
--- NOTE | 2018-12-05 04:49 | NUR ---
PT STATES HER HEADACHE AND VERTIGO IS GONE HOWEVER VERTIGO RETURNED WHEN PT AMBULATED. MD AT BEDSIDE INFORMED PT HE WOULD LIKE TO DO AN MRI. PT REFUSED. MD EXPLAINED RISKS OF REFUSING INCLUDING STROKE AND . PT STATES UNDERSTANDING HOWEVER CONTINUES TO REFUSE. PT TO BD DC'D WITH STRICT RETURN PRECAUTIONS. PT AGREEABLE.
[2018-12-05 04:51] VITALS: BP 101/74
== END 2018-12-05 04:55 | disposition home or self-care (01) ==
LOC: ED 04:49
DX: R27.0 Ataxia, unspecified (principal); R51 Headache; I48.91 Unspecified atrial fibrillation; I25.2 Old myocardial infarction; I12.9 Hypertensive chronic kidney disease with stage 1 through stage 4 chronic kidney disease, or unspecified chronic kidney disease; N18.3 Chronic kidney disease, stage 3 (moderate)
CPT/HCPCS: 96372; 99283; J1885; J2550

== ENCOUNTER 2018-12-07 03:51 | Emergency (ER) | payer MEDICAID ==
[~2018-12-07] VITALS: Ht 157.5 cm; Wt 50.1 kg
--- NOTE | 2018-12-07 04:15 | NUR ---
PT GIVEN MULTIPLE WARM BLANKETS PER REQUEST.
[2018-12-07] MEDS ORDERED: ONDANSETRON ODT 4 MG ONE (04:41)
[2018-12-07] MEDS ORDERED: OXYcodone/APAP 5/325MG TABLET ONE (04:41)
--- NOTE | 2018-12-07 04:44 | NUR ---
PT MEDICATED PER OCT. PT DECLINED THE ZOFRAN. SPOUSE GIVEN WATER PER REQUEST. PT AND SPOUSE DENY FURTHER NEEDS AT THIS TIME.
--- NOTE | 2018-12-07 04:56 | NUR ---
PT REQUESTING TAXI VOUCHER FOR WHEN DC'D
[2018-12-07] MEDS ORDERED: ONDANSETRON ODT 4 MG PO ONE (05:00)
[2018-12-07] MEDS ORDERED: OXYcodone/APAP 5/325MG TABLET PO ONE (05:00)
[2018-12-07 05:34] VITALS: BP 105/74
== END 2018-12-07 05:36 | disposition home or self-care (01) ==
LOC: ED 05:08
DX: M79.18 Myalgia, other site (principal); M32.9 Systemic lupus erythematosus, unspecified; I12.9 Hypertensive chronic kidney disease with stage 1 through stage 4 chronic kidney disease, or unspecified chronic kidney disease; N18.3 Chronic kidney disease, stage 3 (moderate); I48.91 Unspecified atrial fibrillation; I25.2 Old myocardial infarction
CPT/HCPCS: 99283

== ENCOUNTER 2019-06-25 03:53 | Emergency (ER) | payer MEDICAID ==
[~2019-06-25] VITALS: Ht 157.5 cm; Wt 53.9 kg
[~2019-06-25 03:53] MED LIST changes: +AZIT500T10 PO; -AZIT500T5 PO; +CYAN-27 PO; -CYAN10005 PO; +HYDR-826 PO; -HYDR25TA11 PO; -IBUP-1484 PO; +IBUP-1902 PO; +MIRT-34 PO; -MIRT15TA4 PO; -PROM12.55 PO; +PROM12.57 PO; +SILV25CR30 TP; -SILV25CR6 TP
--- NOTE | 2019-06-25 04:21 | NUR ---
PT HERE FOR ALL OVER BODY PAIN DUE TO LUPUS FLARE UP. PT HAS BEEN SEEN HERE FOR SAME IN THE PAST. VSS. CALL LIGHT IN REACH
--- NOTE | 2019-06-25 05:04 | NUR ---
LAB HAS DRAWN PT. PT GIVEN UA CUP AND WILL TRY TO GIVE UA.
[2019-06-25 05:09] LABS: BASOPHILS # (AUTO) 0.03 x10^3/uL (0-0.1); BASOPHILS % (AUTO) 1 % (0-1); EOSINOPHILS # (AUTO) 0.12 x10^3/uL (0-0.4); EOSINOPHILS % (AUTO) 3 % (1-7); LYMPHOCYTES # (AUTO) 1.35 x10^3/uL (1-3.4); LYMPHOCYTES % (AUTO) 39 % (22-44); MD NO; MEAN CORPUSCULAR HEMOGLOBIN 26.8 pg (27.0-34.8); MEAN CORPUSCULAR HGB CONC 32.1 g/dL (32.4-35.8); MEAN CORPUSCULAR VOLUME 83.6 fL (80-100); MEAN PLATELET VOLUME 7.8 fL (7.4-10.4); MONOCYTES # (AUTO) 0.41 x10^3/uL (0.2-0.8); MONOCYTES % (AUTO) 12 % (2-9); NEUTROPHILS # (AUTO) 1.59 x10^3/uL (1.8-6.8); NEUTROPHILS % (AUTO) 46 % (42-75); PLATELET COUNT 226 x10^3/uL (130-400); RED BLOOD COUNT 3.14 x10^6/uL (3.82-5.3); RED CELL DISTRIBUTION WIDTH 14.3 % (9.6-15.2)
[2019-06-25 05:18] LABS: ALBUMIN 3.5 g/dL (3.4-5.0); ANION GAP 5 mmol/L (5-15); CALCIUM 8.5 mg/dL (8.5-10.1); CHLORIDE 110 mmol/L (98-107); CREATININE 1.32 mg/dL (0.55-1.02)
[2019-06-25 06:00] VITALS: BP 102/75
--- NOTE | 2019-06-25 06:18 | NUR ---
UA SENT TO LAB. WAITING FOR MED ORDERS. PT BACK IN BED BUT HAS NO OTHER NEEDS AT THIS TIME. CALL LIGHT IN REACH
[2019-06-25 06:20] LABS: MICROSCOPIC NOT IND
[2019-06-25 06:29] LABS: CULTURE INDICATED? NO
[2019-06-25] MEDS ORDERED: KETOROLAC 30 MG/1 ML ONE (06:29)
[2019-06-25] MEDS ORDERED: OXYcodone/APAP 5/325MG TABLET ONE (06:30)
[2019-06-25] MEDS ORDERED: KETOROLAC 30 MG/1 ML IM ONE (06:30)
[2019-06-25] MEDS ORDERED: OXYcodone/APAP 5/325MG TABLET PO ONE (06:30)
== END 2019-06-25 06:54 | disposition home or self-care (01) ==
LOC: ED 06:03
DX: M79.10 Myalgia, unspecified site (principal); I48.91 Unspecified atrial fibrillation; I25.2 Old myocardial infarction; I12.9 Hypertensive chronic kidney disease with stage 1 through stage 4 chronic kidney disease, or unspecified chronic kidney disease; N18.3 Chronic kidney disease, stage 3 (moderate)
CPT/HCPCS: 36415; 80048; 81003; 82040; 84703; 85025; 96372; 99283; J1885

== ENCOUNTER 2019-07-29 23:03 | Emergency (ER) | payer MEDICAID ==
[~2019-07-29] VITALS: Ht 157.5 cm; Wt 55.0 kg
[2019-07-29 23:25] LABS: BASOPHILS # (AUTO) 0.02 x10^3/uL (0-0.1); BASOPHILS % (AUTO) 0 % (0-1); EOSINOPHILS % (AUTO) 2 % (1-7); LYMPHOCYTES # (AUTO) 1.78 x10^3/uL (1-3.4); LYMPHOCYTES % (AUTO) 41 % (22-44); MD NO; MEAN CORPUSCULAR HEMOGLOBIN 26.5 pg (27.0-34.8); MEAN CORPUSCULAR HGB CONC 31.8 g/dL (32.4-35.8); MEAN CORPUSCULAR VOLUME 83.3 fL (80-100); MEAN PLATELET VOLUME 7.8 fL (7.4-10.4); MONOCYTES # (AUTO) 0.41 x10^3/uL (0.2-0.8); MONOCYTES % (AUTO) 10 % (2-9); NEUTROPHILS # (AUTO) 2.01 x10^3/uL (1.8-6.8); NEUTROPHILS % (AUTO) 47 % (42-75); PLATELET COUNT 242 x10^3/uL (130-400); RED BLOOD COUNT 3.54 x10^6/uL (3.82-5.3); RED CELL DISTRIBUTION WIDTH 13.9 % (9.6-15.2)
[2019-07-29 23:35] LABS: ALBUMIN 3.6 g/dL (3.4-5.0); ANION GAP 7 mmol/L (5-15); CALCIUM 8.3 mg/dL (8.5-10.1); CHLORIDE 110 mmol/L (98-107); CREATININE 1.46 mg/dL (0.55-1.02)
--- NOTE | 2019-07-29 23:40 | NUR ---
URINE COLLECTED. SENT TO LAB.
[2019-07-29 23:53] LABS: MICROSCOPIC AUTO
[2019-07-29 23:57] LABS: CULTURE INDICATED? YES
[2019-07-30] MEDS: ACETAMINOPHEN 500 MG TABLET PO ONE
[2019-07-30] MEDS ORDERED: ACETAMINOPHEN 500 MG TABLET ONE (00:01)
--- NOTE | 2019-07-30 01:04 | NUR ---
LUNCH RN: PT RESTING IN [facility], REPORTS CONTINUED PAIN. PT HAD REFUSED TYLENOL OFFERED BY PRIMARY RN. PT REPORTS THAT "I HAD TYLENOL BEFORE I CAME IN." ERP AWARE. CHART UP FOR RECHECK
[2019-07-30 01:06] VITALS: BP 95/60
[2019-07-30] MEDS ORDERED: HYDROcodone/APAP 5/325 TABLET ONE (01:22)
[2019-07-30] MEDS ORDERED: CEFDINIR 300 MG CAPSULE ONE (01:25)
--- NOTE | 2019-07-30 01:27 | NUR ---
PT MEDICATED PER EMAR. POC IS DC. PT OFF MONITORING AND ASKED TO DRESS.
[2019-07-30] MEDS ORDERED: HYDROcodone/APAP 5/325 TABLET PO ONE (01:30)
[2019-07-30] MEDS ORDERED: CEFDINIR 300 MG CAPSULE PO ONE (01:30)
--- NOTE | 2019-07-30 01:45 | NUR ---
NO S/S OF ABX RXN NOTED. PT AMBULATORY W/ STEADY GATE. DC EDUCATION PROVIDED, PT DEMONSTRATES UNDERSTANDING. PT WHEELED TO DC WITH RN AND FRIEND. PROVIDED TAXI VOUCHER FOR SAFE TRANSPORT HOME
== END 2019-07-30 01:47 | disposition home or self-care (01) ==
LOC: ED 07-30 00:03
DX: N30.00 Acute cystitis without hematuria (principal); N83.202 Unspecified ovarian cyst, left side; I25.2 Old myocardial infarction; I48.91 Unspecified atrial fibrillation; I12.9 Hypertensive chronic kidney disease with stage 1 through stage 4 chronic kidney disease, or unspecified chronic kidney disease; N18.3 Chronic kidney disease, stage 3 (moderate)
CPT/HCPCS: 36415; 76830; 80048; 81001; 82040; 84703; 85025; 87086; 99284

== ENCOUNTER 2019-08-10 02:21 | Emergency (ER) | payer MEDICAID ==
[~2019-08-10] VITALS: Ht 157.5 cm; Wt 50.0 kg
--- NOTE | 2019-08-10 02:34 | NUR ---
Patient into room with EMS. Patient transferred with narayan. Patient is alert, oriented, but answers questions but takes time to answer questions and doesn't speak very loudly or clearly. Patient complains of body aches, but reports no nausea or vomiting. Provider to bedside, awaiting orders.
--- NOTE | 2019-08-10 02:48 | NUR ---
RN to bedside to inform of medications ordered. When reviewed, patient declines medications stating it doesn't work for her.
[2019-08-10] MEDS ORDERED: KETOROLAC 30 MG/1 ML IVPush ONE (03:00)
[2019-08-10 03:17] LABS: BASOPHILS # (AUTO) 0.02 x10^3/uL (0-0.1); BASOPHILS % (AUTO) 0 % (0-1); EOSINOPHILS # (AUTO) 0.02 x10^3/uL (0-0.4); EOSINOPHILS % (AUTO) 1 % (1-7); LYMPHOCYTES # (AUTO) 0.83 x10^3/uL (1-3.4); LYMPHOCYTES % (AUTO) 18 % (22-44); MD NO; MEAN CORPUSCULAR HGB CONC 32.3 g/dL (32.4-35.8); MEAN CORPUSCULAR VOLUME 80.6 fL (80-100); MEAN PLATELET VOLUME 8.1 fL (7.4-10.4); MONOCYTES % (AUTO) 13 % (2-9); NEUTROPHILS % (AUTO) 69 % (42-75); PLATELET COUNT 236 x10^3/uL (130-400); RED BLOOD COUNT 3.77 x10^6/uL (3.82-5.3); RED CELL DISTRIBUTION WIDTH 13.9 % (9.6-15.2)
[2019-08-10 03:29] LABS: ANION GAP 7 mmol/L (5-15); CALCIUM 8.9 mg/dL (8.5-10.1); CHLORIDE 111 mmol/L (98-107); CREATININE 1.61 mg/dL (0.55-1.02)
[2019-08-10 03:30] LABS: ALANINE AMINOTRANSFERASE 13 U/L (12-78); ALBUMIN 4.1 g/dL (3.4-5.0)
[2019-08-10 03:32] LABS: ALKALINE PHOSPHATASE 87 U/L (45-117); BILIRUBIN,TOTAL 0.3 mg/dL (0.2-1.0)
[2019-08-10 03:55] VITALS: BP 100/60
[2019-08-10 03:55] LABS: CULTURE INDICATED? YES; MICROSCOPIC INDICATED
[2019-08-10] MEDS ORDERED: HYDROcodone/APAP 5/325 TABLET ONE (04:26)
[2019-08-10] MEDS ORDERED: HYDROcodone/APAP 5/325 TABLET PO ONE (04:30)
== END 2019-08-10 04:42 | disposition home or self-care (01) ==
LOC: ED 03:02
DX: M79.10 Myalgia, unspecified site (principal); I10 Essential (primary) hypertension; I48.91 Unspecified atrial fibrillation; Z72.89 Other problems related to lifestyle
CPT/HCPCS: 36415; 80053; 81001; 85025; 87040; 87077; 87086; 99283

== ENCOUNTER 2019-08-14 03:09 | Emergency (ER) | payer MEDICAID ==
[~2019-08-14] VITALS: Ht 157.5 cm; Wt 51.0 kg
[2019-08-14 04:29] VITALS: BP 95/62
[2019-08-14 04:29] LABS: BASOPHILS # (AUTO) 0.02 x10^3/uL (0-0.1); BASOPHILS % (AUTO) 1 % (0-1); EOSINOPHILS # (AUTO) 0.06 x10^3/uL (0-0.4); EOSINOPHILS % (AUTO) 2 % (1-7); LYMPHOCYTES # (AUTO) 1.12 x10^3/uL (1-3.4); LYMPHOCYTES % (AUTO) 27 % (22-44); MD NO; MEAN CORPUSCULAR HEMOGLOBIN 25.9 pg (27.0-34.8); MEAN CORPUSCULAR HGB CONC 31.7 g/dL (32.4-35.8); MEAN CORPUSCULAR VOLUME 81.7 fL (80-100); MEAN PLATELET VOLUME 7.8 fL (7.4-10.4); MONOCYTES # (AUTO) 0.35 x10^3/uL (0.2-0.8); MONOCYTES % (AUTO) 8 % (2-9); NEUTROPHILS # (AUTO) 2.64 x10^3/uL (1.8-6.8); NEUTROPHILS % (AUTO) 63 % (42-75); PLATELET COUNT 240 x10^3/uL (130-400); RED BLOOD COUNT 3.42 x10^6/uL (3.82-5.3); RED CELL DISTRIBUTION WIDTH 13.7 % (9.6-15.2)
[2019-08-14 04:41] LABS: ALANINE AMINOTRANSFERASE 12 U/L (12-78); ALBUMIN 3.7 g/dL (3.4-5.0); ANION GAP 7 mmol/L (5-15); CALCIUM 8.2 mg/dL (8.5-10.1); CHLORIDE 113 mmol/L (98-107); CREATININE 1.44 mg/dL (0.55-1.02)
[2019-08-14 04:45] LABS: ALKALINE PHOSPHATASE 81 U/L (45-117); BILIRUBIN,TOTAL 0.2 mg/dL (0.2-1.0); TOTAL PROTEIN 8.7 g/dL (6.4-8.2)
== END 2019-08-14 05:13 | disposition home or self-care (01) ==
LOC: ED 03:38
DX: R20.2 Paresthesia of skin (principal); I48.91 Unspecified atrial fibrillation; I25.2 Old myocardial infarction; I12.9 Hypertensive chronic kidney disease with stage 1 through stage 4 chronic kidney disease, or unspecified chronic kidney disease; N18.3 Chronic kidney disease, stage 3 (moderate); Z72.89 Other problems related to lifestyle
CPT/HCPCS: 36415; 80053; 84703; 85025; 99283

== ENCOUNTER 2019-08-19 02:03 | Emergency (ER) | payer MEDICAID ==
[2019-08-19 02:07] VITALS: BP 92/60
--- NOTE | 2019-08-19 04:25 | NUR ---
TASK RN: FIRST CONTACT WITH PT, NAD NOTED. PT REPORTS VAGINAL DC X SEVERAL DAYS SP UNPROTECTED SEX. DENIES URINARY S/S OR ABD PAIN. PT AMBUALTED STEADILY TO RESTROOM TO ATTEMPT UA. PELVIC CART/GURNEY READY FOR EXAM.
[2019-08-19 04:58] LABS: CLUE CELLS NONE SEEN (NONE SEEN); WET PREP WBCS MANY (FEW)
[2019-08-19] MEDS ORDERED: AZITHROMYCIN 500 MG TABLET ONE (04:59)
[2019-08-19] MEDS ORDERED: AZITHROMYCIN 500 MG TABLET PO ONE (05:00)
[2019-08-19] MEDS ORDERED: LIDOCAINE-MPF 1%, 5ML ONE (05:00)
[2019-08-19] MEDS ORDERED: CEFTRIAXONE 250 MG IM ONE (05:00)
[2019-08-19] MEDS ORDERED: CEFTRIAXONE 250 MG ONE (05:00)
--- NOTE | 2019-08-19 05:10 | NUR ---
UA OBTIANED AND TUBED TO LAB. PT MEDICATED PER OCT. PT DECLINED THE AZITHROMYCIN HERE IT GIVES HER AN UPSET STOMACH. PT REQUESTING PAPER RX. PA INFORMED. PT TO BE DC'D WITH APPROPRIATE RX.
[2019-08-19 05:29] LABS: HCG UR SG 1.026 (1.003-1.030); MICROSCOPIC AUTO
== END 2019-08-19 05:45 | disposition home or self-care (01) ==
LOC: ED 05:39
DX: A64 Unspecified sexually transmitted disease (principal); I10 Essential (primary) hypertension; I48.91 Unspecified atrial fibrillation
CPT/HCPCS: 81001; 81025; 87086; 87210; 87491; 87591; 87808; 96372; 99283; J0696

== ENCOUNTER 2019-08-21 03:30 | Emergency (ER) | payer MEDICAID ==
[~2019-08-21] VITALS: Ht 157.5 cm; Wt 51.4 kg
[2019-08-21] MEDS ORDERED: SODIUM CHLORIDE FLUSH 10ML SYR IVF ONE (04:00)
[2019-08-21 04:44] LABS: ALBUMIN 3.6 g/dL (3.4-5.0); ANION GAP 8 mmol/L (5-15); CALCIUM 8.7 mg/dL (8.5-10.1); CHLORIDE 113 mmol/L (98-107)
[2019-08-21 04:49] LABS: ALANINE AMINOTRANSFERASE 7 U/L (12-78); ALKALINE PHOSPHATASE 83 U/L (45-117); BILIRUBIN,TOTAL 0.3 mg/dL (0.2-1.0); CREATININE 1.45 mg/dL (0.55-1.02); MEAN CORPUSCULAR HEMOGLOBIN 26.2 pg (27.0-34.8); MEAN CORPUSCULAR HGB CONC 32.3 g/dL (32.4-35.8); MEAN CORPUSCULAR VOLUME 81.2 fL (80-100); RED BLOOD COUNT 3.69 x10^6/uL (3.82-5.3); RED CELL DISTRIBUTION WIDTH 14.2 % (9.6-15.2); TOTAL PROTEIN 8.5 g/dL (6.4-8.2)
[2019-08-21 04:50] LABS: MEAN PLATELET VOLUME 8.3 fL (7.4-10.4); PLATELET COUNT 306 x10^3/uL (130-400)
[2019-08-21 04:51] LABS: BASOPHILS # (AUTO) 0.02 x10^3/uL (0-0.1); BASOPHILS % (AUTO) 1 % (0-1); EOSINOPHILS # (AUTO) 0.15 x10^3/uL (0-0.4); EOSINOPHILS % (AUTO) 4 % (1-7); LYMPHOCYTES # (AUTO) 1.86 x10^3/uL (1-3.4); LYMPHOCYTES % (AUTO) 49 % (22-44); MD SCAN; MONOCYTES # (AUTO) 0.45 x10^3/uL (0.2-0.8); MONOCYTES % (AUTO) 12 % (2-9); NEUTROPHILS # (AUTO) 1.31 x10^3/uL (1.8-6.8); NEUTROPHILS % (AUTO) 35 % (42-75)
[2019-08-21] MEDS ORDERED: ONDANSETRON 2MG/ML, 2ML ONE (04:56)
[2019-08-21] MEDS ORDERED: MORPHINE SULFATE 4 MG/ML, 1ML ONE ×2 (04:56→06:06)
[2019-08-21] MEDS ORDERED: morphine SULFATE 10 MG/ML, 1ML IVPush ONE (05:00)
[2019-08-21] MEDS ORDERED: SODIUM CHLORIDE 0.9% 1,000ML IVBOLUS ONE (05:00)
[2019-08-21] MEDS ORDERED: ONDANSETRON 2MG/ML, 2ML IVPush ONE (05:00)
[2019-08-21 05:01] LABS: CULTURE INDICATED? YES; MICROSCOPIC INDICATED
--- NOTE | 2019-08-21 05:25 | NUR ---
TASK RN: STRAIGHT CATH PERFORMED, URINE SENT TO LAB.
[2019-08-21 05:44] VITALS: BP 119/70
[2019-08-21 05:56] LABS: MICROSCOPIC AUTO
[2019-08-21 05:57] LABS: CULTURE INDICATED? YES
[2019-08-21] MEDS ORDERED: MORPHINE SULFATE 4 MG/ML, 1ML IVPush ONE (06:00)
== END 2019-08-21 06:23 | disposition home or self-care (01) ==
LOC: ED 05:52
DX: M54.5 Low back pain (principal); I48.91 Unspecified atrial fibrillation; I10 Essential (primary) hypertension; E87.6 Hypokalemia
CPT/HCPCS: 36415; 80053; 81001; 84703; 85025; 87086; 96374; 96375; 96376; 99283; J2270; J2405; J7030

== ENCOUNTER 2019-08-23 03:02 | Emergency (ER) | payer MEDICAID ==
[~2019-08-23] VITALS: Ht 157.5 cm; Wt 50.3 kg
[2019-08-23 03:04] VITALS: BP 110/70
--- NOTE | 2019-08-23 03:21 | NUR ---
Patient presents to ER with diarrhea x1 week. Patient denies abd pain, nausea, vomiting. Patient is unsure if there has been blood in stool because she "hasn't looked." She states she has been here multiple times recently related to her lupus. Patient is in NAD. Respirations even and unlabored. She is watching TV and using her phone.
--- NOTE | 2019-08-23 03:41 | NUR ---
Patient advised of the stool sample needed and given instructions on how to collect it.
--- NOTE | 2019-08-23 04:08 | NUR ---
Patient states she read that antibiotics cause diarrhea, which she is taking. She states she wants to finish her round of antibiotics at home and if the diarrhea continues, then come back to the ER. Patient discharge instructions given. All questions and concerns addressed. Patient ambulatory with a steady gait. Belongings with patient.
== END 2019-08-23 04:20 | disposition home or self-care (01) ==
LOC: ED 04:13
DX: R19.7 Diarrhea, unspecified (principal); I25.2 Old myocardial infarction; I48.91 Unspecified atrial fibrillation
CPT/HCPCS: 99281

== ENCOUNTER 2019-09-13 01:17 | Emergency (ER) | payer MEDICAID ==
[~2019-09-13] VITALS: Ht 157.5 cm; Wt 55.0 kg
--- NOTE | 2019-09-13 01:35 | NUR ---
THIS IS A 34 YO FEMALE BIB [facility] FOR SUBSTERNAL CHEST PAIN "RADIATING UP THROAT" STARTING 4 DAYS AGO ACCOMPANIED BY SOB AND DIZZINESS, DENIES N/V. PATIENT STATES PAIN IS CONSTANT, RATED 7/10 AND HASN'T GOTTEN BETTER. PAIN IS WORSE WHEN LAYING DOWN. PATIENT HAS HX PR IN 2016 WHILE HOSPITALIZED, NO STENTS PLACED. PATIENT HAS HX OF LUPUS. PATIENT A&OX4, VSS, NAD, ALL MONITORING IN PLACE, NSR ON MONITOR. CALL LIGHT IN REACH, DENIES NEEDS AT THIS TIME
[2019-09-13 01:38] LABS: BASOPHILS # (AUTO) 0.02 x10^3/uL (0-0.1); BASOPHILS % (AUTO) 1 % (0-1); EOSINOPHILS # (AUTO) 0.08 x10^3/uL (0-0.4); EOSINOPHILS % (AUTO) 2 % (1-7); LYMPHOCYTES % (AUTO) 52 % (22-44); MD NO; MEAN CORPUSCULAR HEMOGLOBIN 26.2 pg (27.0-34.8); MEAN CORPUSCULAR HGB CONC 32.4 g/dL (32.4-35.8); MEAN CORPUSCULAR VOLUME 80.9 fL (80-100); MEAN PLATELET VOLUME 8.4 fL (7.4-10.4); MONOCYTES # (AUTO) 0.51 x10^3/uL (0.2-0.8); MONOCYTES % (AUTO) 13 % (2-9); NEUTROPHILS # (AUTO) 1.24 x10^3/uL (1.8-6.8); NEUTROPHILS % (AUTO) 32 % (42-75); PLATELET COUNT 221 x10^3/uL (130-400); RED BLOOD COUNT 3.34 x10^6/uL (3.82-5.3); RED CELL DISTRIBUTION WIDTH 14.8 % (9.6-15.2)
[2019-09-13 01:48] LABS: ALANINE AMINOTRANSFERASE 17 U/L (12-78); ALBUMIN 3.5 g/dL (3.4-5.0); ANION GAP 8 mmol/L (5-15); CALCIUM 8.4 mg/dL (8.5-10.1); CHLORIDE 111 mmol/L (98-107); CREATININE 1.35 mg/dL (0.55-1.02)
[2019-09-13 01:53] LABS: ALKALINE PHOSPHATASE 84 U/L (45-117); BILIRUBIN,TOTAL 0.3 mg/dL (0.2-1.0); TOTAL PROTEIN 8.3 g/dL (6.4-8.2); TROPONIN I < 0.015 ng/mL (0.000-0.045)
[2019-09-13] MEDS ORDERED: OXYcodone/APAP 5/325MG TABLET ONE (01:58)
[2019-09-13] MEDS ORDERED: OXYcodone/APAP 5/325MG TABLET PO ONE (02:00)
--- NOTE | 2019-09-13 02:04 | NUR ---
PATIENT MEDICATED PER EMAR, TOLERATED WELL. DENIES NEEDS AT THIS TIME
[2019-09-13 02:38] VITALS: BP 92/64
--- NOTE | 2019-09-13 03:14 | NUR ---
Patient/Caregiver given discharge instructions and they have confirmed that they understand the instructions. Patient ambulatory with steady gait to discharge with significant other.
== END 2019-09-13 03:30 | disposition home or self-care (01) ==
LOC: ED 02:55
DX: R07.89 Other chest pain (principal); I12.9 Hypertensive chronic kidney disease with stage 1 through stage 4 chronic kidney disease, or unspecified chronic kidney disease; N18.3 Chronic kidney disease, stage 3 (moderate); M32.9 Systemic lupus erythematosus, unspecified
CPT/HCPCS: 36415; 71045; 80053; 84484; 85025; 93005; 99284

== ENCOUNTER 2019-09-16 01:32 | Emergency (ER) | payer MEDICAID ==
[~2019-09-16] VITALS: Ht 157.5 cm; Wt 51.9 kg
--- NOTE | 2019-09-16 02:17 | NUR ---
THIS IS A 34 YO FEMALE COMING IN FOR EPIGASTRIC AND STERNAL CHEST PAIN AND "IT FEELS LIKE MY HEART IS RACING" X1 WEEK WITH "TIGHTNESS IN MY THROAT, AND BRENT SCRATCHY". PAIN DOES NOT RADIATE, BUT PATIENT STATES "IT JUST FEELS TIGHT AND IT HURTS WHEN I COUGH, LAUGH, BURP, ANYTHING". PATIENT DENIES DIZZINESS OR SOB, SPEAKING IN FULL SENTENCES. PATIENT WAS SEEN HERE RECENTLY FOR SAME SYMPTOMS, SENT HOME WITH [place], PATIENT STATES "THE [place] DIDN'T DO ANYTHING FOR ME". A&OX4, VSS, NAD NOTED, SIGNIFICANT OTHER IN ROOM. CALL LIGHT IN REACH. PIV PLACED PER MD ORDERS.
[2019-09-16 02:26] LABS: BASOPHILS # (AUTO) 0.02 x10^3/uL (0-0.1); BASOPHILS % (AUTO) 0 % (0-1); EOSINOPHILS # (AUTO) 0.15 x10^3/uL (0-0.4); EOSINOPHILS % (AUTO) 3 % (1-7); LYMPHOCYTES # (AUTO) 1.88 x10^3/uL (1-3.4); LYMPHOCYTES % (AUTO) 43 % (22-44); MD NO; MEAN CORPUSCULAR HEMOGLOBIN 26.6 pg (27.0-34.8); MEAN CORPUSCULAR HGB CONC 32.9 g/dL (32.4-35.8); MEAN CORPUSCULAR VOLUME 80.8 fL (80-100); MEAN PLATELET VOLUME 7.7 fL (7.4-10.4); MONOCYTES # (AUTO) 0.46 x10^3/uL (0.2-0.8); MONOCYTES % (AUTO) 11 % (2-9); NEUTROPHILS # (AUTO) 1.86 x10^3/uL (1.8-6.8); NEUTROPHILS % (AUTO) 43 % (42-75); PLATELET COUNT 246 x10^3/uL (130-400); RED BLOOD COUNT 3.21 x10^6/uL (3.82-5.3); RED CELL DISTRIBUTION WIDTH 14.9 % (9.6-15.2)
[2019-09-16 02:36] LABS: ALBUMIN 3.5 g/dL (3.4-5.0); ANION GAP 9 mmol/L (5-15); CALCIUM 8.5 mg/dL (8.5-10.1); CHLORIDE 111 mmol/L (98-107)
[2019-09-16 02:40] LABS: TROPONIN I < 0.015 ng/mL (0.000-0.045)
[2019-09-16] MEDS ORDERED: LORazepam 2 MG/ML, 1ML ONE (02:46)
--- NOTE | 2019-09-16 02:53 | NUR ---
PATIENT MEDICATED PER EMAR, TOLERATED WELL
[2019-09-16] MEDS ORDERED: LORazepam 2 MG/ML, 1ML IVPush ONE (03:00)
[2019-09-16] MEDS ORDERED: OMNIPAQUE 350 MG/ML, 100ML BOTTLE ONE (03:05)
--- NOTE | 2019-09-16 03:05 | NUR ---
PATIENT BACK FROM [facility]
--- NOTE | 2019-09-16 04:38 | NUR ---
Patient/Caregiver given discharge instructions and they have confirmed that they understand the instructions and need to follow up with cardiology and PCP. Patient wheeled to discharge and provided with taxi voucher
[2019-09-16 04:39] VITALS: BP 99/66
== END 2019-09-16 03:34 | disposition home or self-care (01) ==
LOC: ED 03:33
DX: R07.89 Other chest pain (principal); I13.10 Hypertensive heart and chronic kidney disease without heart failure, with stage 1 through stage 4 chronic kidney disease, or unspecified chronic kidney disease; N18.3 Chronic kidney disease, stage 3 (moderate); M32.9 Systemic lupus erythematosus, unspecified
CPT/HCPCS: 36415; 71275; 80048; 82040; 84484; 84703; 85025; 93005; 96374; 99284; J2060; Q9967

== ENCOUNTER 2019-10-01 19:03 | Emergency (ER) | payer MEDICAID ==
[~2019-10-01] VITALS: Ht 157.5 cm; Wt 52.6 kg
[2019-10-01 19:11] VITALS: BP 110/58
--- NOTE | 2019-10-01 20:00 | NUR ---
PT RESTING COMFORTABLY. WARM BLANKET PROVIDED. SPOUSE AT BEDSIDE.
== END 2019-10-01 20:09 | disposition home or self-care (01) ==
LOC: ED 20:00
DX: N64.52 Nipple discharge (principal); I25.2 Old myocardial infarction; I48.91 Unspecified atrial fibrillation; I12.9 Hypertensive chronic kidney disease with stage 1 through stage 4 chronic kidney disease, or unspecified chronic kidney disease; N18.3 Chronic kidney disease, stage 3 (moderate)
CPT/HCPCS: 99281

== ENCOUNTER 2019-10-20 01:07 | Emergency (ER) | payer MEDICAID ==
[~2019-10-20] VITALS: Ht 157.5 cm; Wt 49.5 kg
[2019-10-20 01:08] VITALS: BP 109/67
--- NOTE | 2019-10-20 01:29 | NUR ---
LEFT EAR PAIN X THREE DAYS per triage note
--- NOTE | 2019-10-20 01:50 | NUR ---
given dc instruction pt understood pt up ambulated to check out
[2019-10-20] MEDS ORDERED: IBUPROFEN 600 MG TABLET PO ONE (02:00)
== END 2019-10-20 02:00 | disposition home or self-care (01) ==
LOC: ED 01:37
DX: H92.02 Otalgia, left ear (principal); R42 Dizziness and giddiness
CPT/HCPCS: 99282

== ENCOUNTER 2019-10-21 22:26 | Emergency (ER) | payer MEDICAID ==
[~2019-10-21] VITALS: Ht 157.5 cm; Wt 50.0 kg
[2019-10-21 23:45] LABS: MEAN CORPUSCULAR HEMOGLOBIN 26.1 pg (27.0-34.8); MEAN CORPUSCULAR HGB CONC 32.3 g/dL (32.4-35.8); MEAN CORPUSCULAR VOLUME 80.6 fL (80-100); MEAN PLATELET VOLUME 8.2 fL (7.4-10.4); PLATELET COUNT 222 x10^3/uL (130-400); RED BLOOD COUNT 3.62 x10^6/uL (3.82-5.3); RED CELL DISTRIBUTION WIDTH 14.6 % (9.6-15.2)
[2019-10-21 23:57] LABS: ALBUMIN 4.3 g/dL (3.4-5.0); ANION GAP 7 mmol/L (5-15); CALCIUM 9.2 mg/dL (8.5-10.1); CHLORIDE 109 mmol/L (98-107); CREATININE 1.45 mg/dL (0.55-1.02)
[2019-10-22 00:23] LABS: MD YES
--- NOTE | 2019-10-22 00:24 | NUR ---
Pt presents to ed c/o nausea and intermittent dizzinessxmultiple weeks. States LMP approximately 14th of last month. Denies vb or d/c. States breasts enlarging and tender to touch. Denies syncopeal episodes. Monitoring applied. Vss. Call light within reach. Ua sent to lab. Awaiting results.
[2019-10-22 00:26] VITALS: BP 106/66
[2019-10-22 00:27] LABS: BASOS#(MANUAL) 0.07 x10^3/uL (0-0.1); BASOS% (MANUAL) 2 % (0-1); EOS% (MANUAL) 3 % (1-7); LYMPH#(MANUAL) 2.01 x10^3/uL (1-3.4); LYMPHS% (MANUAL) 59 % (22-44); MONOS#(MANUAL) 0.24 x10^3/uL (0.3-2.7); MONOS% (MANUAL) 7 % (2-9); SEG#(MANUAL) 0.99 x10^3/uL (1.8-6.8); SEGS% (MANUAL) 29 % (42-75)
[2019-10-22 00:28] LABS: <PLATELET ESTIMATE> ADEQUATE; <PLT MORPHOLOGY> NORMAL PLT MORPH; ANISOCYTOSIS 1+; HYPOCHROMIA 1+; MICROCYTOSIS 1+
[2019-10-22 00:52] LABS: MICROSCOPIC NOT IND
[2019-10-22 00:54] LABS: CULTURE INDICATED? NO
== END 2019-10-22 01:16 | disposition home or self-care (01) ==
LOC: ED 10-22 00:24
DX: R10.31 Right lower quadrant pain (principal); R10.32 Left lower quadrant pain; R42 Dizziness and giddiness; R11.0 Nausea; I10 Essential (primary) hypertension; I48.91 Unspecified atrial fibrillation
CPT/HCPCS: 36415; 80048; 81003; 82040; 84703; 85025; 93005; 99284

== ENCOUNTER 2019-10-30 22:20 | Emergency (ER) | payer MEDICAID ==
[~2019-10-30] VITALS: Ht 157.5 cm; Wt 50.0 kg
--- NOTE | 2019-10-30 22:40 | NUR ---
Pt alert and resting on gurney. NAD. Pt reports lower abd cramping and nausea x2 weeks. Pt reports she was seen in the ER for this before. Pt LMP around mid-late Sep. Pt reports she has a hx of irregular periods, and took a preg test at home that was negative. Pt is not on control. Pt reports she might have had cysts on her ovaries. Hx of 2 C/S. Pt to restroom for urine sample. Addendum: 10/30/19 at 2249 by MRICH Pt unable to urinate. Lab at bedside for draw.
--- NOTE | 2019-10-30 22:54 | NUR ---
Report to GABY Devine
[2019-10-30 23:06] LABS: BASOPHILS # (AUTO) 0.02 x10^3/uL (0-0.1); BASOPHILS % (AUTO) 1 % (0-1); EOSINOPHILS # (AUTO) 0.04 x10^3/uL (0-0.4); EOSINOPHILS % (AUTO) 1 % (1-7); LYMPHOCYTES # (AUTO) 1.33 x10^3/uL (1-3.4); LYMPHOCYTES % (AUTO) 36 % (22-44); MD NO; MEAN CORPUSCULAR HEMOGLOBIN 26.2 pg (27.0-34.8); MEAN CORPUSCULAR HGB CONC 32.4 g/dL (32.4-35.8); MEAN CORPUSCULAR VOLUME 80.9 fL (80-100); MEAN PLATELET VOLUME 7.4 fL (7.4-10.4); MONOCYTES # (AUTO) 0.39 x10^3/uL (0.2-0.8); MONOCYTES % (AUTO) 11 % (2-9); NEUTROPHILS # (AUTO) 1.89 x10^3/uL (1.8-6.8); NEUTROPHILS % (AUTO) 52 % (42-75); PLATELET COUNT 248 x10^3/uL (130-400); RED BLOOD COUNT 3.54 x10^6/uL (3.82-5.3); RED CELL DISTRIBUTION WIDTH 14.9 % (9.6-15.2)
[2019-10-30 23:15] LABS: ALANINE AMINOTRANSFERASE 14 U/L (12-78); ALBUMIN 3.9 g/dL (3.4-5.0); ANION GAP 5 mmol/L (5-15); CHLORIDE 111 mmol/L (98-107); CREATININE 1.39 mg/dL (0.55-1.02)
[2019-10-30 23:19] LABS: ALKALINE PHOSPHATASE 81 U/L (45-117); BILIRUBIN,TOTAL 0.2 mg/dL (0.2-1.0); TOTAL PROTEIN 8.8 g/dL (6.4-8.2)
[2019-10-30 23:42] LABS: MICROSCOPIC INDICATED
[2019-10-31 00:05] LABS: CULTURE INDICATED? YES
[2019-10-31 00:40] VITALS: BP 95/47
== END 2019-10-31 00:43 | disposition home or self-care (01) ==
LOC: ED 10-31 00:01
DX: R10.30 Lower abdominal pain, unspecified (principal); R11.0 Nausea; I12.9 Hypertensive chronic kidney disease with stage 1 through stage 4 chronic kidney disease, or unspecified chronic kidney disease; N18.3 Chronic kidney disease, stage 3 (moderate); I25.2 Old myocardial infarction; I48.91 Unspecified atrial fibrillation
CPT/HCPCS: 36415; 76830; 80053; 81001; 84703; 85025; 87086; 99284

== ENCOUNTER 2019-11-03 23:32 | Emergency (ER) | payer MEDICAID ==
[~2019-11-03] VITALS: Ht 157.5 cm; Wt 51.3 kg
[2019-11-03 23:37] VITALS: BP 98/62
== END 2019-11-03 23:57 | disposition home or self-care (01) ==
LOC: ED 23:50
DX: H92.02 Otalgia, left ear (principal); I12.9 Hypertensive chronic kidney disease with stage 1 through stage 4 chronic kidney disease, or unspecified chronic kidney disease; N18.3 Chronic kidney disease, stage 3 (moderate); I48.91 Unspecified atrial fibrillation; I25.2 Old myocardial infarction
CPT/HCPCS: 99281

== ENCOUNTER 2019-11-08 03:55 | Emergency (ER) | payer MEDICAID ==
[~2019-11-08] VITALS: Ht 157.5 cm; Wt 50.0 kg
[2019-11-08 03:59] VITALS: BP 106/67
--- NOTE | 2019-11-08 04:52 | NUR ---
Provider at bedside to pedro
[2019-11-08 05:07] LABS: MICROSCOPIC NOT IND
[2019-11-08 05:09] LABS: CULTURE INDICATED? NO
--- NOTE | 2019-11-08 05:16 | NUR ---
Report to Larisa GRIFFIN
[2019-11-08 05:25] LABS: BASOPHILS # (AUTO) 0.03 x10^3/uL (0-0.1); BASOPHILS % (AUTO) 1 % (0-1); EOSINOPHILS # (AUTO) 0.09 x10^3/uL (0-0.4); EOSINOPHILS % (AUTO) 2 % (1-7); LYMPHOCYTES # (AUTO) 1.86 x10^3/uL (1-3.4); LYMPHOCYTES % (AUTO) 44 % (22-44); MD NO; MEAN CORPUSCULAR HEMOGLOBIN 26.4 pg (27.0-34.8); MEAN CORPUSCULAR HGB CONC 32.5 g/dL (32.4-35.8); MEAN CORPUSCULAR VOLUME 81.2 fL (80-100); MEAN PLATELET VOLUME 8.3 fL (7.4-10.4); MONOCYTES # (AUTO) 0.39 x10^3/uL (0.2-0.8); MONOCYTES % (AUTO) 9 % (2-9); NEUTROPHILS # (AUTO) 1.84 x10^3/uL (1.8-6.8); NEUTROPHILS % (AUTO) 44 % (42-75); PLATELET COUNT 215 x10^3/uL (130-400); RED BLOOD COUNT 3.43 x10^6/uL (3.82-5.3); RED CELL DISTRIBUTION WIDTH 14.8 % (9.6-15.2)
[2019-11-08 05:30] LABS: ALANINE AMINOTRANSFERASE 11 U/L (12-78); ALBUMIN 3.8 g/dL (3.4-5.0); ANION GAP 6 mmol/L (5-15); CALCIUM 8.9 mg/dL (8.5-10.1); CHLORIDE 108 mmol/L (98-107); CREATININE 1.28 mg/dL (0.55-1.02)
[2019-11-08 05:35] LABS: ALKALINE PHOSPHATASE 77 U/L (45-117); BILIRUBIN,TOTAL 0.1 mg/dL (0.2-1.0); TOTAL PROTEIN 8.3 g/dL (6.4-8.2)
== END 2019-11-08 05:59 | disposition home or self-care (01) ==
LOC: ED 04:00
DX: K59.00 Constipation, unspecified (principal); I12.9 Hypertensive chronic kidney disease with stage 1 through stage 4 chronic kidney disease, or unspecified chronic kidney disease; N18.3 Chronic kidney disease, stage 3 (moderate); I25.2 Old myocardial infarction
CPT/HCPCS: 36415; 80053; 81003; 84703; 85025; 99283

== ENCOUNTER 2019-11-25 06:20 | Emergency (ER) | payer MEDICAID ==
[~2019-11-25] VITALS: Ht 157.5 cm; Wt 51.4 kg
[2019-11-25] MEDS ORDERED: ONDANSETRON ODT 4 MG ONE (06:50)
--- NOTE | 2019-11-25 06:55 | NUR ---
TASK RN: Received report from LAZARUS Mehta. All questions answered. Gave report to Lazarus Willis. All questions answered.
[2019-11-25] MEDS ORDERED: ONDANSETRON ODT 4 MG PO ONE (07:00)
--- NOTE | 2019-11-25 07:06 | NUR ---
Pt resting in bed, no distress. Pt states still unable to urinate. Pt aware needs urine sample. Cont to monitor.
[2019-11-25 07:12] LABS: BASOPHILS # (AUTO) 0.03 x10^3/uL (0-0.1); BASOPHILS % (AUTO) 1 % (0-1); EOSINOPHILS # (AUTO) 0.03 x10^3/uL (0-0.4); EOSINOPHILS % (AUTO) 1 % (1-7); LYMPHOCYTES % (AUTO) 40 % (22-44); MD NO; MEAN CORPUSCULAR HEMOGLOBIN 26.3 pg (27.0-34.8); MEAN CORPUSCULAR HGB CONC 32.1 g/dL (32.4-35.8); MEAN CORPUSCULAR VOLUME 81.8 fL (80-100); MEAN PLATELET VOLUME 7.9 fL (7.4-10.4); MONOCYTES # (AUTO) 0.38 x10^3/uL (0.2-0.8); MONOCYTES % (AUTO) 9 % (2-9); NEUTROPHILS # (AUTO) 2.11 x10^3/uL (1.8-6.8); NEUTROPHILS % (AUTO) 50 % (42-75); PLATELET COUNT 224 x10^3/uL (130-400); RED BLOOD COUNT 3.47 x10^6/uL (3.82-5.3); RED CELL DISTRIBUTION WIDTH 14.6 % (9.6-15.2)
[2019-11-25 07:23] LABS: ALANINE AMINOTRANSFERASE 8 U/L (12-78); ALBUMIN 3.6 g/dL (3.4-5.0); ANION GAP 6 mmol/L (5-15); CALCIUM 8.9 mg/dL (8.5-10.1); CHLORIDE 110 mmol/L (98-107)
[2019-11-25 07:25] LABS: ALKALINE PHOSPHATASE 72 U/L (45-117); BILIRUBIN,TOTAL 0.1 mg/dL (0.2-1.0); TOTAL PROTEIN 8.1 g/dL (6.4-8.2)
--- NOTE | 2019-11-25 08:11 | NUR ---
TASK RN: Pt refusing straight cath and pt states, "I do not have an infection in my urine." Pt refusing to attempt to urinate for UA. EDPA aware.
--- NOTE | 2019-11-25 08:28 | NUR ---
Pt ok for D/C. Verbalized understanding of D/C paperwork. Steady gait upon D/C, has all own belongings.
[2019-11-25 08:29] VITALS: BP 117/81
== END 2019-11-25 08:31 | disposition home or self-care (01) ==
LOC: ED 06:59
DX: R10.30 Lower abdominal pain, unspecified (principal); R11.0 Nausea; E87.1 Hypo-osmolality and hyponatremia; I12.9 Hypertensive chronic kidney disease with stage 1 through stage 4 chronic kidney disease, or unspecified chronic kidney disease; N18.3 Chronic kidney disease, stage 3 (moderate); I48.91 Unspecified atrial fibrillation; I25.2 Old myocardial infarction
CPT/HCPCS: 36415; 80053; 84703; 85025; 99283; Q0162

== ENCOUNTER 2019-12-09 00:07 | Emergency (ER) | payer MEDICAID ==
[~2019-12-09] VITALS: Ht 157.5 cm; Wt 50.1 kg
[2019-12-09 00:08] VITALS: BP 103/54
[2019-12-09] MEDS ORDERED: OXYMETAZOLINE NASAL SPRAY 0.05%,30ML ONE (00:28)
[2019-12-09] MEDS ORDERED: OXYMETAZOLINE NASAL SPRAY 0.05%, 15ML NAS ONE (00:30)
== END 2019-12-09 00:46 | disposition home or self-care (01) ==
LOC: ED 00:08
DX: H69.82 Other specified disorders of Eustachian tube, left ear (principal); I12.9 Hypertensive chronic kidney disease with stage 1 through stage 4 chronic kidney disease, or unspecified chronic kidney disease; N18.3 Chronic kidney disease, stage 3 (moderate); E87.1 Hypo-osmolality and hyponatremia; E87.6 Hypokalemia; I48.91 Unspecified atrial fibrillation; I25.2 Old myocardial infarction
CPT/HCPCS: 99281; 99282

== ENCOUNTER 2019-12-20 03:15 | Emergency (ER) | payer MEDICAID ==
[~2019-12-20] VITALS: Ht 162.6 cm; Wt 48.8 kg
[2019-12-20 03:18] VITALS: BP 89/50
--- NOTE | 2019-12-20 03:25 | NUR ---
assessment made. ERP at bedside.
[2019-12-20] MEDS ORDERED: PROMETHAZINE 25 MG/ML, 1ML ONE (03:30)
[2019-12-20] MEDS ORDERED: PROMETHAZINE 25 MG/ML, 1ML IM ONE (03:30)
--- NOTE | 2019-12-20 03:35 | NUR ---
patient medicated for nausea. no vomiting.
--- NOTE | 2019-12-20 03:52 | NUR ---
patient discharged with prescription and instruction. verbalized understanding.
== END 2019-12-20 03:54 | disposition home or self-care (01) ==
LOC: ED 03:47
DX: R11.0 Nausea (principal); I12.9 Hypertensive chronic kidney disease with stage 1 through stage 4 chronic kidney disease, or unspecified chronic kidney disease; N18.3 Chronic kidney disease, stage 3 (moderate)
CPT/HCPCS: 96372; 99283; J2550

== ENCOUNTER 2020-01-20 14:42 | Emergency (ER) | payer MEDICAID ==
--- NOTE | 2020-01-20 15:00 | NUR ---
PT CALLED IN LOBBY AND WAS NOT THERE
--- NOTE | 2020-01-20 15:11 | NUR ---
NO PT IN LOBBY AT CALL
--- NOTE | 2020-01-20 15:16 | NUR ---
CALLED IN LOBBY
== END 2020-01-20 15:19 | disposition left against medical advice (07) ==
LOC: ED 15:15
DX: R11.0 Nausea (principal); Z53.21 Procedure and treatment not carried out due to patient leaving prior to being seen by health care provider

== ENCOUNTER 2020-01-23 14:52 | Emergency (ER) | payer MEDICAID ==
[~2020-01-23] VITALS: Ht 157.5 cm; Wt 50.6 kg
[2020-01-23] MEDS ORDERED: SODIUM CHLORIDE 0.9% 1,000 ML IV ONE (15:28)
[2020-01-23] MEDS ORDERED: SODIUM CHLORIDE 0.9% 1,000ML IVBOLUS ONE (15:30)
[2020-01-23] MEDS ORDERED: SODIUM CHLORIDE FLUSH 10ML SYR IVF ONE (15:30)
[2020-01-23] MEDS ORDERED: PROMETHAZINE 25MG TABLET PO ONE (15:30)
[2020-01-23] MEDS ORDERED: PROMETHAZINE 25MG TABLET ONE (15:34)
[2020-01-23 15:48] LABS: BASOPHILS # (AUTO) 0.03 x10^3/uL (0-0.1); BASOPHILS % (AUTO) 1 % (0-1); EOSINOPHILS # (AUTO) 0.04 x10^3/uL (0-0.4); EOSINOPHILS % (AUTO) 1 % (1-7); LYMPHOCYTES # (AUTO) 1.73 x10^3/uL (1-3.4); LYMPHOCYTES % (AUTO) 46 % (22-44); MD NO; MEAN CORPUSCULAR HEMOGLOBIN 26.3 pg (27.0-34.8); MEAN CORPUSCULAR HGB CONC 32.3 g/dL (32.4-35.8); MEAN CORPUSCULAR VOLUME 81.3 fL (80-100); MEAN PLATELET VOLUME 7.7 fL (7.4-10.4); MONOCYTES # (AUTO) 0.39 x10^3/uL (0.2-0.8); MONOCYTES % (AUTO) 10 % (2-9); NEUTROPHILS # (AUTO) 1.59 x10^3/uL (1.8-6.8); NEUTROPHILS % (AUTO) 42 % (42-75); PLATELET COUNT 212 x10^3/uL (130-400); RED BLOOD COUNT 3.66 x10^6/uL (3.82-5.3); RED CELL DISTRIBUTION WIDTH 13.2 % (9.6-15.2)
[2020-01-23 15:59] LABS: ALBUMIN 3.9 g/dL (3.4-5.0); ANION GAP 9 mmol/L (5-15); CALCIUM 8.7 mg/dL (8.5-10.1); CHLORIDE 107 mmol/L (98-107)
--- NOTE | 2020-01-23 16:14 | NUR ---
PT MEDICATED PER OCT FOR NAUSEA. PIV INITIATED, BOLUS HUNG. PT STATES UNABLE TO PROVIDE URINE SAMPLE AT THIS TIME D/T DEHYDRATION, WILL ATTEMPT AT LATER TIME
[2020-01-23 16:18] LABS: ALANINE AMINOTRANSFERASE 10 U/L (12-78); ALKALINE PHOSPHATASE 68 U/L (45-117); BILIRUBIN,TOTAL 0.5 mg/dL (0.2-1.0); CREATININE 1.38 mg/dL (0.55-1.02); TOTAL PROTEIN 8.8 g/dL (6.4-8.2)
--- NOTE | 2020-01-23 16:21 | NUR ---
Pt medicated for CP.
[2020-01-23 16:58] LABS: MICROSCOPIC INDICATED
[2020-01-23 17:25] VITALS: BP 97/52
== END 2020-01-23 18:06 | disposition home or self-care (01) ==
LOC: ED 15:30
DX: O26.891 Other specified pregnancy related conditions, first trimester (principal); R11.0 Nausea; I48.91 Unspecified atrial fibrillation; I12.9 Hypertensive chronic kidney disease with stage 1 through stage 4 chronic kidney disease, or unspecified chronic kidney disease; N18.3 Chronic kidney disease, stage 3 (moderate); Z3A.01 Less than 8 weeks gestation of pregnancy
CPT/HCPCS: 36415; 76801; 80053; 81001; 83690; 84702; 84703; 85025; 99284; J7030; Q0169

== ENCOUNTER 2020-02-01 02:54 | Emergency (ER) | payer MEDICAID ==
[~2020-02-01] VITALS: Ht 157.5 cm; Wt 50.6 kg
--- NOTE | 2020-02-01 03:08 | NUR ---
34 Y/O FEMALE PRESENTS TO THE ER BY ANÍBAL FOR LLQ ABD PAIN. THE PT REPORTS SHE HAS BEEN HAVING THE PAIN X 1 HOUR. "DULL ACHY PAIN" THAT IS NONRADIATING, WORSE UPON PALPATION. PT DENIES ANY VAGINAL BLEEDING, SHE DOES HAVE CRAMPING. A2. REPORTS A HX OF LUPUS. NO N/V/D. PT ATTACHED TO ALL MONITORING EQUIPMENT, CHANGED INTO A GOWN AND PROVIDED WITH WARM BLANKETS. ALL VITALS STABLE. WILL CONTINUE TO MONITOR.
--- NOTE | 2020-02-01 04:00 | NUR ---
PT UA COLLECTED AND SENT TO LAB. PT RESTING IN [facility], APPEARS COMFORTABLE, DENIES ADDITIONAL NEEDS AT THIS TIME. REED. INES.
[2020-02-01 04:22] LABS: MICROSCOPIC NOT IND
[2020-02-01 04:49] VITALS: BP 91/61
--- NOTE | 2020-02-01 04:57 | NUR ---
Patient given discharge instructions and they have confirmed that they understand the instructions. Patient ambulatory with steady gait. NAD, RESP WNL, VSS, PT DENIES ADDITIONAL QUESTIONS AT THIS TIME AND NO BELONGINGS LEFT IN ROOM AT TIME OF DC.
== END 2020-02-01 04:58 | disposition home or self-care (01) ==
LOC: ED 04:12
DX: O26.891 Other specified pregnancy related conditions, first trimester (principal); R10.32 Left lower quadrant pain; R11.0 Nausea; I48.91 Unspecified atrial fibrillation; I25.2 Old myocardial infarction; I12.9 Hypertensive chronic kidney disease with stage 1 through stage 4 chronic kidney disease, or unspecified chronic kidney disease; N18.3 Chronic kidney disease, stage 3 (moderate); Z3A.08 8 weeks gestation of pregnancy
CPT/HCPCS: 81003; 99283

== ENCOUNTER 2020-02-11 17:37 | Emergency (ER) | payer MEDICAID ==
[~2020-02-11] VITALS: Ht 157.5 cm; Wt 52.0 kg
--- NOTE | 2020-02-11 17:55 | NUR ---
SKIMMER: EKG PERFORMED IN TRIAGE. THIS RN WITH PT DURING PROCEDURE. PT TOLERATED WITH NO COMPLICATIONS.
[2020-02-11] MEDS ORDERED: ONDANSETRON 2MG/ML, 2ML ONE (18:13)
[2020-02-11] MEDS ORDERED: SODIUM CHLORIDE 0.9% 1,000ML IVBOLUS ONE (18:30)
[2020-02-11] MEDS ORDERED: ONDANSETRON 2MG/ML, 2ML IVPush ONE (18:30)
[2020-02-11 18:33] LABS: MICROSCOPIC INDICATED
--- NOTE | 2020-02-11 18:47 | NUR ---
LUNCH BREAK NOTE: IV STARTED AND PT MEDICATED ORDERED.
[2020-02-11 18:55] LABS: BASOPHILS # (AUTO) 0.03 x10^3/uL (0-0.1); BASOPHILS % (AUTO) 1 % (0-1); EOSINOPHILS # (AUTO) 0.11 x10^3/uL (0-0.4); EOSINOPHILS % (AUTO) 2 % (1-7); LYMPHOCYTES # (AUTO) 1.59 x10^3/uL (1-3.4); LYMPHOCYTES % (AUTO) 31 % (22-44); MD NO; MEAN CORPUSCULAR HEMOGLOBIN 26.4 pg (27.0-34.8); MEAN CORPUSCULAR HGB CONC 32.6 g/dL (32.4-35.8); MEAN PLATELET VOLUME 7.6 fL (7.4-10.4); MONOCYTES # (AUTO) 0.59 x10^3/uL (0.2-0.8); MONOCYTES % (AUTO) 11 % (2-9); NEUTROPHILS % (AUTO) 55 % (42-75); PLATELET COUNT 228 x10^3/uL (130-400); RED BLOOD COUNT 3.36 x10^6/uL (3.82-5.3); RED CELL DISTRIBUTION WIDTH 13.6 % (9.6-15.2)
[2020-02-11 19:05] LABS: ALANINE AMINOTRANSFERASE 15 U/L (12-78); ALBUMIN 3.6 g/dL (3.4-5.0); ANION GAP 9 mmol/L (5-15); CALCIUM 8.6 mg/dL (8.5-10.1); CHLORIDE 110 mmol/L (98-107); CREATININE 1.19 mg/dL (0.55-1.02)
[2020-02-11 19:07] LABS: ALKALINE PHOSPHATASE 59 U/L (45-117); BILIRUBIN,TOTAL 0.2 mg/dL (0.2-1.0); TOTAL PROTEIN 8.1 g/dL (6.4-8.2)
[2020-02-11 19:49] LABS: CLUE CELLS NONE SEEN (NONE SEEN)
[2020-02-11 19:51] LABS: WET PREP WBCS FEW (FEW)
--- NOTE | 2020-02-11 19:56 | NUR ---
ALL RESULTS ARE BACK AT THIS TIME. CHART UP FOR RECHECK.
[2020-02-11 20:00] VITALS: BP 104/66
--- NOTE | 2020-02-11 20:10 | NUR ---
MD AT BEDSIDE TO UPDATE PT ON POC.
[2020-02-11] MEDS ORDERED: PROMETHAZINE 25MG TABLET ONE (20:13)
--- NOTE | 2020-02-11 20:17 | NUR ---
RELIGIOUS EDUCATOR PER MAR.
[2020-02-11] MEDS ORDERED: PROMETHAZINE 25MG TABLET PO PRN (20:30)
== END 2020-02-11 20:35 | disposition home or self-care (01) ==
LOC: ED 19:55
DX: O21.9 Vomiting of pregnancy, unspecified (principal); E86.0 Dehydration; R94.31 Abnormal electrocardiogram [ECG] [EKG]; Z3A.10 10 weeks gestation of pregnancy
CPT/HCPCS: 36415; 80053; 81001; 85025; 87086; 87210; 87491; 87591; 87808; 93005; 96361; 96374; 99284; J2405; J7030; Q0169

== ENCOUNTER 2020-02-20 13:19 | Emergency (ER) | payer MEDICAID ==
[~2020-02-20] VITALS: Ht 157.5 cm; Wt 53.7 kg
[2020-02-20 13:38] VITALS: BP 92/55
--- NOTE | 2020-02-20 16:40 | NUR ---
BIG DATA DEVELOPER: PT NOT IN LOBBY.
--- NOTE | 2020-02-20 16:50 | NUR ---
NA X 2
--- NOTE | 2020-02-20 17:04 | NUR ---
NA X 2 Addendum: 02/20/20 at 1704 by [email or web address] NA X 3
== END 2020-02-20 17:12 | disposition left against medical advice (07) ==
LOC: ED 17:05
DX: R10.30 Lower abdominal pain, unspecified (principal); Z53.29 Procedure and treatment not carried out because of patient's decision for other reasons

== ENCOUNTER 2020-02-22 02:06 | Emergency (ER) | payer MEDICAID ==
[~2020-02-22] VITALS: Ht 167.6 cm; Wt 54.7 kg
--- NOTE | 2020-02-22 02:44 | NUR ---
PT C//O LEFT LOWER ABD PAIN
[2020-02-22 03:06] LABS: MICROSCOPIC NOT IND
[2020-02-22 03:46] LABS: BASOPHILS # (AUTO) 0.03 x10^3/uL (0-0.1); BASOPHILS % (AUTO) 1 % (0-1); EOSINOPHILS # (AUTO) 0.18 x10^3/uL (0-0.4); EOSINOPHILS % (AUTO) 4 % (1-7); LYMPHOCYTES # (AUTO) 1.63 x10^3/uL (1-3.4); LYMPHOCYTES % (AUTO) 32 % (22-44); MD NO; MEAN CORPUSCULAR HEMOGLOBIN 26.7 pg (27.0-34.8); MEAN CORPUSCULAR HGB CONC 32.7 g/dL (32.4-35.8); MEAN CORPUSCULAR VOLUME 81.8 fL (80-100); MEAN PLATELET VOLUME 7.4 fL (7.4-10.4); MONOCYTES # (AUTO) 0.51 x10^3/uL (0.2-0.8); MONOCYTES % (AUTO) 10 % (2-9); NEUTROPHILS # (AUTO) 2.76 x10^3/uL (1.8-6.8); NEUTROPHILS % (AUTO) 54 % (42-75); PLATELET COUNT 193 x10^3/uL (130-400); RED BLOOD COUNT 2.73 x10^6/uL (3.82-5.3); RED CELL DISTRIBUTION WIDTH 13.9 % (9.6-15.2)
[2020-02-22 03:52] LABS: ANION GAP 8 mmol/L (5-15); CALCIUM 8.6 mg/dL (8.5-10.1); CHLORIDE 112 mmol/L (98-107); CREATININE 1.11 mg/dL (0.55-1.02)
[2020-02-22] MEDS ORDERED: PROMETHAZINE 25 MG/ML, 1ML ONE (05:33)
[2020-02-22 05:50] VITALS: BP 92/55
[2020-02-22] MEDS ORDERED: FENTANYL PF 100 MCG/2ML IM SCH (06:00)
[2020-02-22 06:13] VITALS: BP 93/58
[2020-02-22] MEDS ORDERED: PROMETHAZINE 25 MG/ML, 1ML IM ONE (06:30)
[2020-02-22 06:56] VITALS: BP 100/63
--- NOTE | 2020-02-22 06:58 | NUR ---
report received from lester madrigal.
--- NOTE | 2020-02-22 06:58 | NUR ---
Report given to GABY Nicole. Patient care transferred.
--- NOTE | 2020-02-22 07:03 | NUR ---
pt and edmd signed on consent form.
[2020-02-22 07:28] VITALS: BP 102/62
--- NOTE | 2020-02-22 07:34 | NUR ---
PT STILL TRANSFUSING PRBC'S. PT'S AOX4. RESPS EVEN AND UNLABORED. PT DENIES PAIN, SOB, ANY OTHER SX. PIV SITE CDI WITH NO REDNESS/EDEMA.
[2020-02-22 07:56] VITALS: BP 99/67
--- NOTE | 2020-02-22 08:14 | NUR ---
blood transfusion finished at this time. pt's aox4. resps even and unlabored.
[2020-02-22 08:45] VITALS: BP 95/62
--- NOTE | 2020-02-22 08:46 | NUR ---
this rn educated regarding signs of reaction from blood transufusion. pt verbally understand and stated"i know i've been transufusiong a lot. i just wanna go home now." pt's aox4. resps even and unlabored. pt wheeled to [facility]. taxi voucher given at nv.
== END 2020-02-22 08:47 | disposition home or self-care (01) ==
LOC: ED 06:41
DX: O99.011 Anemia complicating pregnancy, first trimester (principal); D64.9 Anemia, unspecified; R10.30 Lower abdominal pain, unspecified; R11.0 Nausea; R00.0 Tachycardia, unspecified; I12.9 Hypertensive chronic kidney disease with stage 1 through stage 4 chronic kidney disease, or unspecified chronic kidney disease; N18.3 Chronic kidney disease, stage 3 (moderate); I48.91 Unspecified atrial fibrillation; I25.2 Old myocardial infarction; Z3A.11 11 weeks gestation of pregnancy
CPT/HCPCS: 36415; 36430; 76801; 80048; 81003; 84702; 85025; 86850; 86900; 86923; 96372; 99285; J2550; P9040

== ENCOUNTER 2020-02-27 02:04 | Emergency (ER) | payer MEDICAID ==
[~2020-02-27] VITALS: Ht 157.5 cm; Wt 53.3 kg
[~2020-02-27 02:04] MED LIST changes: -PANT40TA5 PO; +PANT40TA6 PO
[2020-02-27 02:08] VITALS: BP 106/63
--- NOTE | 2020-02-27 03:38 | NUR ---
PT TO ROOM FROM LOBBY AT THIS TIME, REMAINS STABLE AND NAD.
[2020-02-27] MEDS ORDERED: ONDANSETRON ODT 4 MG PO ONE (04:00)
[2020-02-27] MEDS ORDERED: ONDANSETRON ODT 4 MG ONE (04:02)
[2020-02-27] MEDS ORDERED: PROMETHAZINE 25 MG/ML, 1ML ONE (04:06)
[2020-02-27 04:11] LABS: BASOPHILS # (AUTO) 0.02 x10^3/uL (0-0.1); BASOPHILS % (AUTO) 0 % (0-1); EOSINOPHILS % (AUTO) 3 % (1-7); LYMPHOCYTES # (AUTO) 1.61 x10^3/uL (1-3.4); LYMPHOCYTES % (AUTO) 26 % (22-44); MD NO; MEAN CORPUSCULAR HEMOGLOBIN 27.3 pg (27.0-34.8); MEAN CORPUSCULAR HGB CONC 32.6 g/dL (32.4-35.8); MEAN PLATELET VOLUME 7.2 fL (7.4-10.4); MONOCYTES # (AUTO) 0.59 x10^3/uL (0.2-0.8); MONOCYTES % (AUTO) 9 % (2-9); NEUTROPHILS # (AUTO) 3.84 x10^3/uL (1.8-6.8); NEUTROPHILS % (AUTO) 61 % (42-75); PLATELET COUNT 229 x10^3/uL (130-400); RED BLOOD COUNT 3.57 x10^6/uL (3.82-5.3); RED CELL DISTRIBUTION WIDTH 15.4 % (9.6-15.2)
[2020-02-27 04:20] LABS: ALANINE AMINOTRANSFERASE 13 U/L (12-78); ALBUMIN 3.8 g/dL (3.4-5.0); ANION GAP 8 mmol/L (5-15); CALCIUM 8.9 mg/dL (8.5-10.1); CHLORIDE 110 mmol/L (98-107); CREATININE 1.15 mg/dL (0.55-1.02)
[2020-02-27 04:22] LABS: ALKALINE PHOSPHATASE 63 U/L (45-117); BILIRUBIN,TOTAL 0.3 mg/dL (0.2-1.0); TOTAL PROTEIN 8.3 g/dL (6.4-8.2)
[2020-02-27] MEDS ORDERED: PROMETHAZINE 25 MG/ML, 1ML IM ONE (04:30)
[2020-02-27 04:41] LABS: MICROSCOPIC AUTO
--- NOTE | 2020-02-27 04:45 | NUR ---
FTH 156, PATIENT REPORTS HER NAUSEA HAS IMPROVED AFTER THE MEDICATIONS
[2020-02-27] MEDS ORDERED: FLUCONAZOLE 100 MG TABLET ONE (04:59)
[2020-02-27] MEDS ORDERED: FLUCONAZOLE 100 MG TABLET PO ONE (05:00)
== END 2020-02-27 05:16 | disposition home or self-care (01) ==
LOC: ED 04:12
DX: O26.891 Other specified pregnancy related conditions, first trimester (principal); R11.2 Nausea with vomiting, unspecified; R10.84 Generalized abdominal pain; Z3A.13 13 weeks gestation of pregnancy
CPT/HCPCS: 36415; 80053; 81001; 85025; 87086; 96372; 99283; J2550

== ENCOUNTER 2020-03-29 08:52 | Emergency (ER) | payer MEDICAID ==
[~2020-03-29] VITALS: Ht 157.5 cm; Wt 56.5 kg
[~2020-03-29 08:52] MED LIST changes: +PANT40TA5 PO; -PANT40TA6 PO
[2020-03-29 09:07] VITALS: BP 91/58
== END 2020-03-29 09:53 ==
LOC: ED 09:23
DX: O99.612 Diseases of the digestive system complicating pregnancy, second trimester (principal); K08.89 Other specified disorders of teeth and supporting structures; Z3A.16 16 weeks gestation of pregnancy; I12.9 Hypertensive chronic kidney disease with stage 1 through stage 4 chronic kidney disease, or unspecified chronic kidney disease; N18.3 Chronic kidney disease, stage 3 (moderate); I48.91 Unspecified atrial fibrillation; I25.2 Old myocardial infarction
CPT/HCPCS: 99283

== ENCOUNTER 2020-03-30 03:39 | Emergency (ER) | payer MEDICAID ==
[~2020-03-30] VITALS: Ht 157.5 cm; Wt 55.0 kg
[2020-03-30 03:53] VITALS: BP 88/52
[2020-03-30] MEDS ORDERED: OXYcodone/APAP 5/325MG TABLET ONE (04:47)
[2020-03-30] MEDS ORDERED: OXYcodone/APAP 5/325MG TABLET PO ONE (05:00)
== END 2020-03-30 05:08 | disposition home or self-care (01) ==
LOC: ED 03:48
DX: O99.612 Diseases of the digestive system complicating pregnancy, second trimester (principal); K08.89 Other specified disorders of teeth and supporting structures; I12.9 Hypertensive chronic kidney disease with stage 1 through stage 4 chronic kidney disease, or unspecified chronic kidney disease; N18.3 Chronic kidney disease, stage 3 (moderate); I25.2 Old myocardial infarction; I48.91 Unspecified atrial fibrillation; Z3A.16 16 weeks gestation of pregnancy
CPT/HCPCS: 99283

== ENCOUNTER 2020-04-04 00:37 | Emergency (ER) | payer MEDICAID ==
[~2020-04-04] VITALS: Ht 157.5 cm; Wt 58.0 kg
[2020-04-04 00:41] VITALS: BP 88/47
[2020-04-04 01:59] LABS: MICROSCOPIC NOT IND
== END 2020-04-04 03:10 | disposition home or self-care (01) ==
LOC: ED 02:20
DX: O26.892 Other specified pregnancy related conditions, second trimester (principal); R11.0 Nausea; R10.30 Lower abdominal pain, unspecified; I12.9 Hypertensive chronic kidney disease with stage 1 through stage 4 chronic kidney disease, or unspecified chronic kidney disease; N18.3 Chronic kidney disease, stage 3 (moderate); Z3A.17 17 weeks gestation of pregnancy
CPT/HCPCS: 81003; 99284

== ENCOUNTER 2020-04-22 00:56 | Outpatient (CLI) | payer MEDICAID ==
[~2020-04-22] VITALS: Ht 157.5 cm; Wt 56.4 kg
[~2020-04-22 00:56] MED LIST changes: -PANT40TA5 PO; +PANT40TA6 PO
[2020-04-22 01:16] LABS: MICROSCOPIC NOT IND
[2020-04-22 01:17] VITALS: BP 88/56
[2020-04-22 01:29] LABS: AMPHETAMINE SCREEN, URINE Negative (Negative); BARBITURATE SCREEN, URINE Negative (Negative); BENZODIAZEPINE SCREEN, URINE Negative (Negative); CANNABINOID SCREEN, URINE Positive (Negative); COCAINE SCREEN, URINE Negative (Negative); METHADONE SCREEN, URINE Negative (Negative); OPIATE SCREEN, URINE Negative (Negative)
[2020-04-22] MEDS ORDERED: FERR300L PO (01:45)
[2020-04-22] MEDS ORDERED: PREN1TAB79 PO (01:45)
== END 2020-04-22 02:24 | disposition home or self-care (01) ==
LOC: LDOP 00:56
PROVIDERS: ATTEND Obstetrics & Gynecology
DX: O09.92 Supervision of high risk pregnancy, unspecified, second trimester (principal); O26.892 Other specified pregnancy related conditions, second trimester; R10.9 Unspecified abdominal pain; Z3A.20 20 weeks gestation of pregnancy
CPT/HCPCS: 80307; 81003; 87086; 99211; G0463

== ENCOUNTER 2020-05-03 02:04 | Emergency (ER) | payer MEDICAID ==
[~2020-05-03] VITALS: Ht 157.5 cm; Wt 59.0 kg
[~2020-05-03 02:04] MED LIST changes: +FERR300L PO; +PREN1TAB79 PO
--- NOTE | 2020-05-03 02:46 | NUR ---
A&o x4, answering questions appropriately. States yeast infx x2 days, per pt she was dx by provider over the phone. Took diflucan/monistat and cortisone yesterday with no effect. Denies urinary sx. Denies abd pain. Denies fever/chills. Pt states she is 21 weeks . Partner at bedside. Ambulating independently, steady gait
--- NOTE | 2020-05-03 02:51 | NUR ---
Provider at bedside
[2020-05-03 03:18] LABS: MICROSCOPIC NOT IND
[2020-05-03] MEDS ORDERED: FLUCONAZOLE 100 MG TABLET ONE (03:29)
[2020-05-03] MEDS ORDERED: PROMETHAZINE 25 MG/ML, 1ML IM ONE (03:30)
[2020-05-03] MEDS ORDERED: FLUCONAZOLE 100 MG TABLET PO ONE (03:30)
[2020-05-03] MEDS ORDERED: PROMETHAZINE 25 MG/ML, 1ML ONE (03:42)
[2020-05-03 04:02] VITALS: BP 105/62
== END 2020-05-03 04:04 | disposition home or self-care (01) ==
LOC: ED 03:55
DX: O26.892 Other specified pregnancy related conditions, second trimester (principal); B37.3 Candidiasis of vulva and vagina; I48.91 Unspecified atrial fibrillation; I12.9 Hypertensive chronic kidney disease with stage 1 through stage 4 chronic kidney disease, or unspecified chronic kidney disease; N18.3 Chronic kidney disease, stage 3 (moderate); Z3A.21 21 weeks gestation of pregnancy
CPT/HCPCS: 81003; 96372; 99283; J2550

== ENCOUNTER 2020-05-19 16:18 | Outpatient (CLI) | payer MEDICAID ==
[~2020-05-19] VITALS: Ht 157.5 cm; Wt 61.8 kg
[2020-05-19 16:30] VITALS: BP 96/55
[2020-05-19 18:15] LABS: MICROSCOPIC AUTO
[2020-05-19 18:24] LABS: AMPHETAMINE SCREEN, URINE Negative (Negative); BARBITURATE SCREEN, URINE Negative (Negative); BENZODIAZEPINE SCREEN, URINE Negative (Negative); CANNABINOID SCREEN, URINE Negative (Negative); COCAINE SCREEN, URINE Negative (Negative); METHADONE SCREEN, URINE Negative (Negative); OPIATE SCREEN, URINE Negative (Negative)
[2020-05-19 18:42] LABS: MEAN CORPUSCULAR HEMOGLOBIN 28.8 pg (27.0-34.8); MEAN CORPUSCULAR HGB CONC 32.9 g/dL (32.4-35.8); MEAN PLATELET VOLUME 7.3 fL (7.4-10.4); PLATELET COUNT 192 x10^3/uL (130-400); RED BLOOD COUNT 2.61 x10^6/uL (3.82-5.3); RED CELL DISTRIBUTION WIDTH 15.1 % (9.6-15.2)
== END 2020-05-19 20:36 | disposition home or self-care (01) ==
LOC: LDOP 16:18
PROVIDERS: ATTEND Student in an Organized Health Care Education/Training Program
DX: O32.1XX0 Maternal care for breech presentation, not applicable or unspecified (principal); Z3A.23 23 weeks gestation of pregnancy
CPT/HCPCS: 36415; 76815; 76817; 80307; 81001; 85027; 86592; 86762; 86850; 86900; 87086; 87340; 87806; 99211; G0463; G0475

== ENCOUNTER 2020-05-25 01:28 | Outpatient (CLI) | payer MEDICAID ==
[~2020-05-25] VITALS: Ht 157.5 cm; Wt 56.8 kg
[2020-05-25 01:25] VITALS: BP 124/67
[2020-05-25 02:04] LABS: MICROSCOPIC NOT IND
[2020-05-25 02:17] LABS: AMPHETAMINE SCREEN, URINE Negative (Negative); BARBITURATE SCREEN, URINE Negative (Negative); BENZODIAZEPINE SCREEN, URINE Negative (Negative); CANNABINOID SCREEN, URINE Negative (Negative); COCAINE SCREEN, URINE Negative (Negative); METHADONE SCREEN, URINE Negative (Negative); OPIATE SCREEN, URINE Negative (Negative)
== END 2020-05-25 02:58 | disposition home or self-care (01) ==
LOC: LDOP 01:28
PROVIDERS: ATTEND Obstetrics & Gynecology
DX: O09.92 Supervision of high risk pregnancy, unspecified, second trimester (principal); O26.892 Other specified pregnancy related conditions, second trimester; R10.9 Unspecified abdominal pain; Z3A.24 24 weeks gestation of pregnancy
CPT/HCPCS: 59025; 80307; 81003; 87086

== ENCOUNTER 2020-06-01 05:31 | Emergency (ER) | payer MEDICAID ==
[~2020-06-01] VITALS: Ht 157.5 cm; Wt 64.1 kg
[2020-06-01 05:35] VITALS: BP 94/57
[2020-06-01] MEDS ORDERED: ACETAMINOPHEN 325 MG TABLET ONE (05:57)
[2020-06-01] MEDS ORDERED: ACETAMINOPHEN 325 MG TABLET PO ONE (06:00)
--- NOTE | 2020-06-01 06:45 | NUR ---
BEDSIDE REPORT RECEIVED PRISCILLA
[2020-06-01 06:49] LABS: ALANINE AMINOTRANSFERASE 8 U/L (12-78); ALBUMIN 2.7 g/dL (3.4-5.0); ANION GAP 9 mmol/L (5-15); CALCIUM 7.9 mg/dL (8.5-10.1); CHLORIDE 114 mmol/L (98-107); CREATININE 1.17 mg/dL (0.55-1.02)
[2020-06-01 06:53] LABS: ALKALINE PHOSPHATASE 71 U/L (45-117); BILIRUBIN,TOTAL 0.2 mg/dL (0.2-1.0); TROPONIN I < 0.015 ng/mL (0.000-0.045)
[2020-06-01 06:57] LABS: BASOPHILS % (AUTO) 1 % (0-1); EOSINOPHILS % (AUTO) 5 % (1-7); LYMPHOCYTES % (AUTO) 24 % (22-44); MEAN CORPUSCULAR HEMOGLOBIN 28.7 pg (27.0-34.8); MEAN CORPUSCULAR HGB CONC 32.7 g/dL (32.4-35.8); MEAN PLATELET VOLUME 7.3 fL (7.4-10.4); MONOCYTES % (AUTO) 10 % (2-9); NEUTROPHILS % (AUTO) 61 % (42-75); PLATELET COUNT 208 x10^3/uL (130-400); RED CELL DISTRIBUTION WIDTH 14.4 % (9.6-15.2)
[2020-06-01 06:58] LABS: MD NO
--- NOTE | 2020-06-01 07:02 | NUR ---
PT UPRIGHT ON GURNEY ON CELL PHONE. NAD NOTED. PT DENIES ANY NEEDS AT THIS TIME. "I JUST WANT TO GO HOME". CALL LIGHT WITHIN REACH. WILL CONTINUE TO MONITOR.
--- NOTE | 2020-06-01 07:34 | NUR ---
Patient given discharge instructions and they have confirmed that they understand the instructions. Patient ambulatory with steady gait.
== END 2020-06-01 07:36 | disposition home or self-care (01) ==
LOC: ED 06:15
DX: M25.512 Pain in left shoulder (principal); H69.82 Other specified disorders of Eustachian tube, left ear; N18.30 Chronic kidney disease, stage 3 unspecified; D63.1 Anemia in chronic kidney disease; R94.31 Abnormal electrocardiogram [ECG] [EKG]; I48.91 Unspecified atrial fibrillation; I25.2 Old myocardial infarction; Z88.0 Allergy status to penicillin
CPT/HCPCS: 36415; 80053; 84484; 85025; 93005; 99284

== ENCOUNTER 2020-06-30 22:08 | Outpatient (CLI) | payer MEDICAID ==
[~2020-06-30] VITALS: Ht 157.5 cm; Wt 65.5 kg
[2020-06-30 22:33] VITALS: BP 95/57
[2020-07-01 00:08] LABS: MICROSCOPIC AUTO
[2020-07-01 00:20] LABS: AMPHETAMINE SCREEN, URINE Negative (Negative); BARBITURATE SCREEN, URINE Negative (Negative); BENZODIAZEPINE SCREEN, URINE Negative (Negative); CANNABINOID SCREEN, URINE Positive (Negative); COCAINE SCREEN, URINE Negative (Negative); METHADONE SCREEN, URINE Negative (Negative); OPIATE SCREEN, URINE Negative (Negative)
== END 2020-07-01 01:07 | disposition home or self-care (01) ==
LOC: LDOP 22:08
PROVIDERS: ATTEND Obstetrics & Gynecology
DX: O42.913 Preterm premature rupture of membranes, unspecified as to length of time between rupture and onset of labor, third trimester (principal); Z3A.29 29 weeks gestation of pregnancy
CPT/HCPCS: 59025; 80307; 81001; 84112; 87086

== ENCOUNTER 2021-01-09 15:16 | Emergency (ER) | payer MEDICAID ==
[~2021-01-09] VITALS: Ht 157.5 cm; Wt 62.1 kg
[~2021-01-09 15:16] MED LIST changes: +HYDR-2214 PO; -HYDR-3240 PO; +MIRT-14 PO; -MIRT-34 PO; -OXYC-302 PO; -OXYC-306 PO; +OXYC1TAB14 PO; +OXYC1TAB17 PO; -OXYC5TAB3 PO; +OXYC5TAB98 PO; -VANC1VIA3 PO; +VANC1VIA36 PO
[2021-01-09 15:33] VITALS: BP 107/70
--- NOTE | 2021-01-09 17:18 | NUR ---
FLOAT RN: ASSUMED CARE FOR DISCHARGE ONLY Patient/Caregiver given discharge instructions and they have confirmed that they understand the instructions. Patient ambulatory with steady gait. NAD, all questions answered appropriately, denies additional needs at this time. No personal belongings left in room after discharge.
== END 2021-01-09 17:20 | disposition home or self-care (01) ==
LOC: ED 17:00
DX: S63.502A Unspecified sprain of left wrist, initial encounter (principal); S60.572A Other superficial bite of hand of left hand, initial encounter; I25.2 Old myocardial infarction; N18.31 Chronic kidney disease, stage 3a; W55.01XA Bitten by cat, initial encounter; Y93.89 Activity, other specified; Y92.89 Other specified places as the place of occurrence of the external cause; Y99.8 Other external cause status
CPT/HCPCS: 99283

== ENCOUNTER 2021-02-09 11:25 | Emergency (ER) | payer MEDICAID ==
[~2021-02-09] VITALS: Ht 157.5 cm; Wt 60.1 kg
[2021-02-09 11:35] VITALS: BP 100/67
== END 2021-02-09 12:18 | disposition home or self-care (01) ==
LOC: ED 12:12
DX: D18.00 Hemangioma unspecified site (principal); I12.9 Hypertensive chronic kidney disease with stage 1 through stage 4 chronic kidney disease, or unspecified chronic kidney disease; N18.30 Chronic kidney disease, stage 3 unspecified; I25.2 Old myocardial infarction
CPT/HCPCS: 99281

== ENCOUNTER 2021-02-10 04:38 | Emergency (ER) | payer MEDICAID ==
[~2021-02-10] VITALS: Ht 157.5 cm; Wt 59.2 kg
[2021-02-10 04:41] VITALS: BP 115/72
--- NOTE | 2021-02-10 04:57 | NUR ---
pt presents to the ed with abd pain and diarhhea for the last 12 hours. pt stated she had some chicken and has been sick since. pt states she took pepto and dranks some Sofia Dry but that is not helping. pt in gown, resting on gurney and placed on continuous monitoring.
[2021-02-10] MEDS ORDERED: PROMETHAZINE 25 MG/ML, 1ML ONE (05:26)
[2021-02-10] MEDS ORDERED: DICYCLOMINE 10 MG CAPSULE PO ONE (05:30)
[2021-02-10] MEDS ORDERED: PROMETHAZINE 25 MG/ML, 1ML IM ONE (05:30)
--- NOTE | 2021-02-10 05:35 | NUR ---
pt medicated, resting comfortably on gurney, denies needs at this time.
--- NOTE | 2021-02-10 05:43 | NUR ---
Patient given discharge instructions and they have confirmed that they understand the instructions. Patient ambulatory with steady gait.
== END 2021-02-10 05:51 | disposition home or self-care (01) ==
LOC: ED 04:53
DX: R10.84 Generalized abdominal pain (principal); R11.2 Nausea with vomiting, unspecified; R19.7 Diarrhea, unspecified; I25.2 Old myocardial infarction; I48.91 Unspecified atrial fibrillation; I12.9 Hypertensive chronic kidney disease with stage 1 through stage 4 chronic kidney disease, or unspecified chronic kidney disease; N18.30 Chronic kidney disease, stage 3 unspecified
CPT/HCPCS: 96372; 99283; J2550